=== PATIENT | male | born 1935 | race Caucasian/White ===

== ENCOUNTER → 2016-02-29 | Outpatient (CLI) | payer BC ==
[~2016-02-29] MED LIST: APIX1TAB PO; ARC10 PO; ASPI81TA28 PO; ATOR-26 PO; CETI10TA84 PO; CHOL100010 PO; DLN100 PO; DOCU100C31 PO; FAMO20TA9 PO; FSM70 PO; METO25TA56 PO; MULT-506 PO; NMN5 PO
[2016-02-29 11:03] LABS: HEMATOCRIT 45.1 % (42-52); MEAN CELL VOLUME 94.5 fL (80-100); MEAN CORPUSCULAR HEMOGLOBIN 32.9 pg (25-34); MEAN CORPUSCULAR HGB CONC 34.8 g/dl (32-36); MEAN PLATELET VOLUME 10.1 fL (7.4-10.4); PLATELET COUNT 169 K/uL (130-400); RED BLOOD COUNT 4.77 M/uL (4.7-6.1); WHITE BLOOD COUNT 6.05 K/uL (4.8-10.8)
[2016-02-29 11:20] LABS: ALT/SGPT 36 U/L (12-78); BLOOD UREA NITROGEN 25 mg/dl (7-18); BUN/CREATININE RATIO 13.1 (10-20); CALCIUM 8.9 mg/dl (8.5-10.1); CARBON DIOXIDE 26 mmol/L (21-32); CHLORIDE 108 mmol/L (98-107); CHOLESTEROL 226 mg/dl (0-200); GLUCOSE 107 mg/dl (70-99); POTASSIUM 4.7 mmol/L (3.5-5.1); SODIUM 144 mmol/L (136-145); TRIGLYCERIDES 200 mg/dl (0-150); VERY LOW DENSITY LIPOPROT CALC 40 mg/dl
[2016-02-29 11:21] LABS: ALB/GLOB RATIO 1.3 (0.9-2); ALKALINE PHOSPHATASE 96 U/L (45-117); AST/SGOT 26 U/L (15-37); CHOLESTEROL/HDL RATIO 4.3; HDL CHOLESTEROL 53 mg/dl; LDL CHOLESTEROL CALCULATED 133 mg/dl
== END | disposition home or self-care (01) ==
LOC: C.LAB 09:29
PROVIDERS: ATTEND Family Medicine
DX: I48.91 Unspecified atrial fibrillation (principal); I12.9 Hypertensive chronic kidney disease with stage 1 through stage 4 chronic kidney disease, or unspecified chronic kidney disease; N18.3 Chronic kidney disease, stage 3 (moderate); E78.5 Hyperlipidemia, unspecified; G40.909 Epilepsy, unspecified, not intractable, without status epilepticus

== ENCOUNTER → 2016-03-27 | Outpatient (CLI) | payer BC ==
[2016-03-27 14:59] LABS: URINE APPEARANCE CLEAR (CLEAR); URINE BILIRUBIN NEG (NEG); URINE COLOR YELLOW; URINE NITRITE NEG (NEG); UROBILINOGEN NEG (NEG)
[2016-03-27 15:02] LABS: MANUAL MICROSCOPIC REQUIRED? NO; REVIEW REQ? NO
[2016-03-27 15:12] LABS: BLOOD UREA NITROGEN 30 mg/dl (7-18); BUN/CREATININE RATIO 11.6 (10-20); CALCIUM 8.3 mg/dl (8.5-10.1); CARBON DIOXIDE 25 mmol/L (21-32); CHLORIDE 111 mmol/L (98-107); GLUCOSE 107 mg/dl (70-99); PHOSPHORUS 2.3 mg/dl (2.5-4.9); POTASSIUM 4.5 mmol/L (3.5-5.1); SODIUM 145 mmol/L (136-145); URINE PROTIEN/CREAT RATIO 0.4 (0-0.2); URINE TOTAL PROTEIN 67.5 mg/dl (0-11.9)
== END ==
LOC: C.LAB 12:37
PROVIDERS: ATTEND Internal Medicine Nephrology
DX: N18.3 Chronic kidney disease, stage 3 (moderate) (principal)

== ENCOUNTER → 2016-04-14 | Outpatient (CLI) | payer BC ==
[2016-04-14 12:08] LABS: HEMATOCRIT 42.9 % (42-52); MEAN CELL VOLUME 96.6 fL (80-100); MEAN CORPUSCULAR HEMOGLOBIN 32.7 pg (25-34); MEAN CORPUSCULAR HGB CONC 33.8 g/dl (32-36); MEAN PLATELET VOLUME 9.7 fL (7.4-10.4); PLATELET COUNT 203 K/uL (130-400); RED BLOOD COUNT 4.44 M/uL (4.7-6.1); WHITE BLOOD COUNT 5.71 K/uL (4.8-10.8)
[2016-04-14 12:34] LABS: ALT/SGPT 30 U/L (12-78); BLOOD UREA NITROGEN 25 mg/dl (7-18); BUN/CREATININE RATIO 12.5 (10-20); CALCIUM 8.6 mg/dl (8.5-10.1); CARBON DIOXIDE 27 mmol/L (21-32); CHLORIDE 106 mmol/L (98-107); GLUCOSE 96 mg/dl (70-99); POTASSIUM 4.5 mmol/L (3.5-5.1); SODIUM 139 mmol/L (136-145)
[2016-04-14 12:37] LABS: ALB/GLOB RATIO 1.2 (0.9-2); ALKALINE PHOSPHATASE 102 U/L (45-117); AST/SGOT 23 U/L (15-37); CHOLESTEROL 147 mg/dl (0-200); HDL CHOLESTEROL 49 mg/dl; LDL CHOLESTEROL CALCULATED 70 mg/dl; PHOSPHORUS 2.1 mg/dl (2.5-4.9); TRIGLYCERIDES 140 mg/dl (0-150); VERY LOW DENSITY LIPOPROT CALC 28 mg/dl
== END | disposition home or self-care (01) ==
LOC: C.LAB 10:54
PROVIDERS: ATTEND Family Medicine
DX: N17.9 Acute kidney failure, unspecified (principal); E78.5 Hyperlipidemia, unspecified; I48.91 Unspecified atrial fibrillation; G40.909 Epilepsy, unspecified, not intractable, without status epilepticus; N18.3 Chronic kidney disease, stage 3 (moderate); I12.9 Hypertensive chronic kidney disease with stage 1 through stage 4 chronic kidney disease, or unspecified chronic kidney disease

== ENCOUNTER 2016-09-21 04:27 | Inpatient (IN) | payer BC, OTHER ==
[~2016-09-21] VITALS: Ht 175.3 cm; Wt 73.4 kg
[2016-09-21] VITALS (9 sets, daily range): BP systolic 117–191; BP diastolic 70–85; PULSE 57–71; TEMP 36.4–37.4; O2SAT 92–98; Ht 175.3 cm; Wt 73.4 kg
[~2016-09-21 04:27] MED LIST changes: -ASPI81TA28 PO; -DOCU100C31 PO; -FAMO20TA9 PO; -METO25TA56 PO; -NMN5 PO
[2016-09-21 05:21] LABS: BASO % 0.2 %; BASO ABS # 0.02 K/uL (0-0.2); COMPLETE YES; EOS % 0.7 %; HEMATOCRIT 48.9 % (42-52); IG% 0.2 %; LYMPH % 13.6 %; MEAN CELL VOLUME 96.3 fL (80-100); MEAN CORPUSCULAR HEMOGLOBIN 31.9 pg (25-34); MEAN CORPUSCULAR HGB CONC 33.1 g/dl (32-36); MEAN PLATELET VOLUME 9.8 fL (7.4-10.4); MONO % 7.1 %; NEUT % 78.2 %; PLATELET COUNT 167 K/uL (130-400); RED BLOOD COUNT 5.08 M/uL (4.7-6.1); WHITE BLOOD COUNT 8.08 K/uL (4.8-10.8)
[2016-09-21] MEDS ORDERED: NMN5 PO (05:28)
[2016-09-21] MEDS ORDERED: NITROGLYCERIN OINT 2% 1GM PACKET EXT ONE (05:30)
[2016-09-21 05:34] LABS: PROTHROMBIN TIME (PATIENT) 10.7 SECONDS (9.0-12.0)
[2016-09-21 05:42] LABS: BUN/CREATININE RATIO 16.8 (10-20); CALCIUM 8.8 mg/dl (8.5-10.1); CREATININE 2.1 mg/dl (0.60-1.40); POTASSIUM 4.3 mmol/L (3.5-5.1)
[2016-09-21 05:49] LABS: ALB/GLOB RATIO 1.3 (0.9-2)
[2016-09-21] MEDS ORDERED: MoRPHine SULFATE 4 MG/ML 1 ML CARP\\VIAL IV STA (05:56)
[2016-09-21] MEDS ORDERED: ASPIRIN/ALUM/MAGNES/CAL CARB 325 MG TAB PO STA (05:56)
[2016-09-21] MEDS ORDERED: FENTANYL CITRATE INJ 50 MCG/1 ML 2 ML VIAL IV STA (06:08)
--- NOTE | 2016-09-21 06:20 | EMERGENCY ROOM VISIT NOTE ---
History Report prepared by Arden: Ines Diego Under the Supervision of: Dr. Cristina Morris D.O. First contact with patient: 04:48 Chief Complaint: CHEST PAIN Stated Complaint: CHEST PAIN Nursing Triage Summary: pt c/o chest pain/headache. reports it kept him up all night. states he was working outside all yesterday. states chest pain is "in the middle" with no radiation. hx of a.fib, on eliquis. reports he feels "a little" sob. pt alert and oriented x4. ambulatory independently. breathing WNL. History of Present Illness The patient is a 80 year old male who presents to the Emergency Room with complaints of constant central chest pain that began this afternoon after working on a tractor trailer. The pain is described as "aching", and is not relieved with changing position. He reports minimal relief after taking Tylenol. The patient also notes headache and shortness of breath. He also denies nausea, dizziness, edema, fevers, chills, nor changes in bowel movements or changes in medications. He has a history of Atrial fibrillation and is on a blood thinner. The patient has no history of similar symptoms. Source of History: patient Onset: a few hours ago Position: chest Quality: ache Timing: constant Associated Symptoms: + headache, + SOB, No fevers, No chills, No nausea, No numbness Note: The patient denies any edema. Review of Systems See HPI for pertinent positives & negatives. A total of 10 systems reviewed and were otherwise negative. Past Medical & Surgical Medical Problems: (1) Anticoagulated on Coumadin (2) DVT (deep venous thrombosis) (3) Kidney stone (4) Osteoporosis (5) Pneumonia Family History Heart disease Social History Smoking Status: Never Smoker Alcohol Use: none Drug Use: none Marital Status: Housing Status: lives with significant other Occupation Status: retired Current/Historical Medications Scheduled Alendronate (Fosamax *), 70 MG PO thursday Apixaban (Eliquis), 2.5 MG PO BID Atorvastatin (Lipitor), 1 TAB PO QAM Cetirizine (Zyrtec), 10 MG PO QAM Cholecalciferol (Vitamin D), 1,000 INTER.UNIT PO QAM Donepezil Hcl (Aricept *), 10 MG PO QAM Memantine (Namenda), 5 MG PO DAILY Multivitamin (Multivitamin), 1 TAB PO QAM Phenytoin Sodium (Dilantin *), 100 MG PO QAM Allergies Coded Allergies: Oxycodone (Verified Allergy, Unknown, UNKNOWN, 09/21/16) Penicillins (Verified Allergy, Unknown, UNKNOWN, 09/21/16) Physical Exam Vital Signs Date Time Temp Pulse Resp B/P (MAP) Pulse Ox O2 Delivery O2 Flow Rate FiO2 09/21/16 06:30 68 18 151/90 97 Room Air 09/21/16 06:01 96 Nasal Cannula 2.0 09/21/16 06:00 66 18 160/105 96 Nasal Cannula 2.0 09/21/16 06:00 88 Room Air 09/21/16 05:38 69 18 149/79 93 Room Air 09/21/16 05:00 76 09/21/16 04:46 93 Room Air 09/21/16 04:43 93 Room Air 09/21/16 04:43 Room Air 09/21/16 04:32 36.7 96 22 182/86 70 Room Air Physical Exam GENERAL: alert, well appearing, well nourished, no distress, non-toxic EYE EXAM: normal conjunctiva, PERRL and EOM's grossly intact OROPHARYNX: no exudate, no erythema, lips, buccal mucosa, and tongue normal and mucous membranes are moist NECK: supple, no nuchal rigidity, no adenopathy, non-tender LUNGS: Clear to auscultation. Normal chest wall mechanics HEART: no murmurs, S1 normal and S2 normal ABDOMEN: abdomen soft, non-tender, normo-active bowel sounds, no masses, no rebound or guarding. BACK: Back is symmetrical on inspection and there is no deformity, no midline tenderness, no CVA tenderness. SKIN: no rashes and no bruising UPPER EXTREMITIES: upper extremities are grossly normal. LOWER EXTREMITIES: 1+ LE bilateral edema NEURO EXAM: Normal sensorium, cranial nerves II-XII grossly intact, normal speech, no gross weakness of arms, no gross weakness of legs. Medical Decision & Procedures ER Provider Diagnostic Interpretation: One view Chest X-Ray interpreted by me: Mild cardiomegaly, no effusions, increased interstitial marking bilaterally, no wide mediastinum. Laboratory Results 09/21/16 05:03 Red Blood Count 5.08, Mean Corpuscular Volume 96.3, Mean Corpuscular Hemoglobin 31.9, Mean Corpuscular Hemoglobin Concent 33.1, Mean Platelet Volume 9.8, Neutrophils (%) (Auto) 78.2, Lymphocytes (%) (Auto) 13.6, Monocytes (%) (Auto) 7.1, Eosinophils (%) (Auto) 0.7, Basophils (%) (Auto) 0.2, Neutrophils # (Auto) 6.31, Lymphocytes # (Auto) 1.10, Monocytes # (Auto) 0.57, Eosinophils # (Auto) 0.06, Basophils # (Auto) 0.02 09/21/16 05:03 Test 09/21/16 05:03 White Blood Count 8.08 K/uL (4.8-10.8) Red Blood Count 5.08 M/uL (4.7-6.1) Hemoglobin 16.2 g/dL (14.0-18.0) Hematocrit 48.9 % (42-52) Mean Corpuscular Volume 96.3 fL (80-100) Mean Corpuscular Hemoglobin 31.9 pg (25-34) Mean Corpuscular Hemoglobin Concent 33.1 g/dl (32-36) Platelet Count 167 K/uL (130-400) Mean Platelet Volume 9.8 fL (7.4-10.4) Neutrophils (%) (Auto) 78.2 % Lymphocytes (%) (Auto) 13.6 % Monocytes (%) (Auto) 7.1 % Eosinophils (%) (Auto) 0.7 % Basophils (%) (Auto) 0.2 % Neutrophils # (Auto) 6.31 K/uL (1.4-6.5) Lymphocytes # (Auto) 1.10 K/uL (1.2-3.4) Monocytes # (Auto) 0.57 K/uL (0.11-0.59) Eosinophils # (Auto) 0.06 K/uL (0-0.5) Basophils # (Auto) 0.02 K/uL (0-0.2) RDW Standard Deviation 49.4 fL (36.4-46.3) RDW Coefficient of Variation 13.9 % (11.5-14.5) Immature Granulocyte % (Auto) 0.2 % Immature Granulocyte # (Auto) 0.02 K/uL (0.00-0.02) Prothrombin Time 10.7 SECONDS (9.0-12.0) Prothromb Time International Ratio 1.0 (0.9-1.1) Anion Gap 8.0 mmol/L (3-11) Est Creatinine Clear Calc Drug Dose 27.1 ml/min Estimated GFR () 33.0 Estimated GFR (Non- 28.5 BUN/Creatinine Ratio 16.8 (10-20) Calcium Level 8.8 mg/dl (8.5-10.1) Total Bilirubin 0.5 mg/dl (0.2-1) Aspartate Amino Transf (AST/SGOT) 38 U/L (15-37) Alanine Aminotransferase (ALT/SGPT) 34 U/L (12-78) Alkaline Phosphatase 109 U/L (45-117) Pro-B-Type Natriuretic Peptide 1426 pg/ml (0-1800) Total Protein 7.6 gm/dl (6.4-8.2) Albumin 4.3 gm/dl (3.4-5.0) Globulin 3.3 gm/dl (2.5-4.0) Albumin/Globulin Ratio 1.3 (0.9-2) Laboratory results per my review. Medications Administered Medications (Trade) Dose Ordered Sig/Korina Route Start Time Stop Time Status Last Admin Dose Admin Nitroglycerin (Nitroglycerin 2% Oint) 1 inch NOW ONCE EXT 09/21/16 05:30 09/21/16 05:31 DC 09/21/16 05:38 1 INCH Aspirin/Aluminum/ Magnesium/Ca Carb (Ascriptin Tab) 325 mg NOW STAT PO 09/21/16 05:56 09/21/16 05:57 DC 09/21/16 06:23 325 MG Fentanyl Citrate (Fentanyl Inj) 50 mcg NOW STAT IV 09/21/16 06:08 09/21/16 06:09 DC 09/21/16 06:24 50 MCG Acetaminophen (Tylenol Tab) 650 mg Q4H PRN PO 09/21/16 06:30 10/21/16 06:29 09/21/16 20:59 650 MG ECG Indication: chest pain Rate (beats per minute): 90 Rhythm: atrial fibrillation Findings: RBBB, no acute ischemic change, prolonged QT, other (Normal axis. Prolonged QRS.) ED Course 0451: The patient was evaluated in room B5. A complete history and physical exam was performed. 0530: Ordered NTG 2% Oint 1 inch EXT 0555: I reassessed the patient. His pain has improved but not resolved. 0556: Ordered Ascriptin Tab 325 mg PO, Morphine Sulfate 2 mg IV. 0608: Ordered Fentanyl Inj 50 mcg IV. 0613: Upon reevaluation, the patient is resting comfortably. I discussed the findings and the treatment plan with the patient. He expresses agreement and understanding. I spoke with Dr. Tapia of the [facility] Hospital[facility] Service. The patient will be evaluated for further management. Medical Decision Differential diagnosis: Etiologies such as cardiac ischemia, aortic dissection, pulmonary embolism, pneumonia, pneumothorax, musculoskeletal, infections, pericarditis, myocarditis , esophageal rupture, gastrointestinal, as well as others were entertained. Patient's chest pain here found to have an elevated troponin. Patient with chronic kidney disease, however stable compared to baseline, unclear if troponin influenced by abnormal creatinine. Patient however with ongoing chest pain, improved with nitroglycerin and dose of fentanyl. Discussed admission with hospitalist. Patient given aspirin as a precaution, however already anticoagulated on Eliquis given history of A. fib. They will discuss and anticoagulation with cardiology for likely non-ST elevation PR. Patient aware of all results and need for admission was agreeable with plan. Doubt dissection , AAA, PE, ammonia, effusion, GI bleed, perforation. Patient's vital signs stable, initially hypertensive, however improved with nitroglycerin and pain medication. Patient's A. fib rate controlled. Medication Reconcilliation Current Medication List: was personally reviewed by me Blood Pressure Screening Patient's blood pressure: Elevated blood pressure Blood pressure disposition: Elevated BP felt to be situational Consults Time Called: [phone] Consulting Physician: Dr. Tapia -[facility] Returned Call: [phone] I reviewed the patient's case with Dr. Tapia. [facility] will evaluate the patient for further management. Impression Primary Impression: Chest pain Additional Impressions: Elevated troponin NSTEMI (non-ST elevated myocardial infarction) Scribe Attestation The scribe's documentation has been prepared under my direction and personally reviewed by me in its entirety. I confirm that the note above accurately reflects all work, treatment, procedures, and medical decision making performed by me. Departure Information Dispostion Being Evaluated By Hospitalist Referrals Marcial Em III, CRNP (PCP) Patient Instructions My [facility] Problem Qualifiers Primary Impression: Chest pain Chest pain type: chest pain due to myocardial ischemia Ischemic chest pain type: unspecified angina pectoris type Qualified Codes: I20.9 - Angina pectoris, unspecified
[2016-09-21] MEDS ORDERED: MoRPHine SULFATE 2 MG/ML CARP IV PRN (06:30)
[2016-09-21] MEDS ORDERED: NITROGLYCERIN 0.4 MG SL PER TAB CHARGE SL PRN (06:30)
[2016-09-21] MEDS ORDERED: MAGNESIUM HYDROXIDE SUSP 30 ML UDC PO PRN (06:30)
[2016-09-21] MEDS ORDERED: ALUMINUM/MAGNESIUM/SIMETH (MAALOX MAX) 30 ML UDC PO PRN (06:30)
[2016-09-21] MEDS ORDERED: ONDANSETRON INJ 2 MG/ML 2 ML VIAL IV PRN (06:30)
[2016-09-21] MEDS ORDERED: POLYETHYLENE (MIRALAX) 17 GM PACK PO PRN (06:30)
--- NOTE | 2016-09-21 06:40 | History and Physical ---
History & Physical Date & Time of Service: Sep 21, 2016 at 06:33 Chief Complaint: Chest Pain Primary Care Physician: Marcial Em III, CRNP History of Present Illness Source: patient 80 y/o M Hx CKD 3, Factor V Laden mutation, chronic AF, seizure disorder, dementia. Pt presents with intermittent CP accompanied by SOB since the previous afternoon. There is no described radiation, N/V, diaphoresis. Initial labs reveal an elevated troponin. On review of records he has had abnormal troponins previously deemed due to renal insufficiency and demand mismatch. This was not however, previously accompanied by CP and occurred during an admission for PNM in 2014. An initial EKG shows possible depression in 2 anterior leads. CXR may be consistent with early vascular congestion. He is anticoagulated with Apixaban. Past Medical/Surgical History 1) Chronic AF 2) CKD 3 3) Factor V mutation and previous DVT 4) Seizure disorder 5) Dementia 6) HPL Family History Heart disease Social History Smoking Status: Never Smoker Drug Use: none Marital Status: Housing status: lives with family Occupational Status: retired Immunizations History of Influenza Vaccine: N/A History of Tetanus Vaccine?: Yes History of Pneumococcal: Yes History of Hepatitis B Vaccine: No Multi-Drug Resistant Organisms History of MDRO: No Allergies Coded Allergies: Oxycodone (Verified Allergy, Unknown, UNKNOWN, 09/21/16) Penicillins (Verified Allergy, Unknown, UNKNOWN, 09/21/16) Home Medications Scheduled Alendronate (Fosamax *), 70 MG PO thursday Apixaban (Eliquis), 2.5 MG PO BID Atorvastatin (Lipitor), 1 TAB PO QAM Cetirizine (Zyrtec), 10 MG PO QAM Cholecalciferol (Vitamin D), 1,000 INTER.UNIT PO QAM Donepezil Hcl (Aricept *), 10 MG PO QAM Memantine (Namenda), 5 MG PO DAILY Multivitamin (Multivitamin), 1 TAB PO QAM Phenytoin Sodium (Dilantin *), 100 MG PO QAM Review of Systems Constitutional: No fever, No chills, No sweats Eyes: No worsening of vision ENT: No hearing loss, No unusual epistaxis, No nasal symptoms Respiratory: + shortness of breath, + dyspnea at rest, No cough, No sputum, No wheezing Cardiovascular: + chest pain Abdomen: No pain, No nausea, No vomiting Musculoskeletal: No joint pain Genitourinary - Male: No hematuria, No dysuria, No urinary frequency Neurologic: + memory loss (chronic dementia), No paralysis, No weakness Psychiatric: No depression symptoms Endocrine: No fatigue Hematologic / Lymphatic: No abnormal bleeding/bruising Integumentary: No rash Allergic / Immunologic: No environmental allergies Physical Exam Vital Signs Date Time Temp Pulse Resp B/P (MAP) Pulse Ox O2 Delivery O2 Flow Rate FiO2 09/21/16 06:01 96 Nasal Cannula 2.0 09/21/16 06:00 66 18 160/105 96 Nasal Cannula 2.0 09/21/16 06:00 88 Room Air 09/21/16 05:38 69 18 149/79 93 Room Air 09/21/16 05:00 76 09/21/16 04:46 93 Room Air 09/21/16 04:43 93 Room Air 09/21/16 04:43 Room Air 09/21/16 04:32 36.7 96 22 182/86 70 Room Air General Appearance: + pertinent finding (Very pleasant elderly male - AAO x 2 - no distress) Head: normocephalic, atraumatic Eyes: normal inspection, EOMI ENT: normal ENT inspection, pharynx normal Neck: supple, no JVD Respiratory/Chest: chest non-tender, no respiratory distress, no accessory muscle use, + crackles (R base only) Cardiovascular: no JVD, no murmur, + irregularly irregular Abdomen/GI: normal bowel sounds, non tender, soft Back: normal inspection, no CVA tenderness Extremities/Musculoskelatal: normal inspection, no calf tenderness, normal capillary refill, no pedal edema 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, no motor/sensory deficits, alert, normal mood/affect, normal reflexes, oriented x 3 Skin: normal color, warm/dry, no rash Diagnostics Laboratory Results Results Past 24 Hours Test 09/21/16 05:03 Range/Units White Blood Count 8.08 4.8-10.8 K/uL Red Blood Count 5.08 4.7-6.1 M/uL Hemoglobin 16.2 14.0-18.0 g/dL Hematocrit 48.9 42-52 % Mean Corpuscular Volume 96.3 80-100 fL Mean Corpuscular Hemoglobin 31.9 25-34 pg Mean Corpuscular Hemoglobin Concent 33.1 32-36 g/dl Platelet Count 167 130-400 K/uL Mean Platelet Volume 9.8 7.4-10.4 fL Neutrophils (%) (Auto) 78.2 % Lymphocytes (%) (Auto) 13.6 % Monocytes (%) (Auto) 7.1 % Eosinophils (%) (Auto) 0.7 % Basophils (%) (Auto) 0.2 % Neutrophils # (Auto) 6.31 1.4-6.5 K/uL Lymphocytes # (Auto) 1.10 1.2-3.4 K/uL Monocytes # (Auto) 0.57 0.11-0.59 K/uL Eosinophils # (Auto) 0.06 0-0.5 K/uL Basophils # (Auto) 0.02 0-0.2 K/uL RDW Standard Deviation 49.4 36.4-46.3 fL RDW Coefficient of Variation 13.9 11.5-14.5 % Immature Granulocyte % (Auto) 0.2 % Immature Granulocyte # (Auto) 0.02 0.00-0.02 K/uL Prothrombin Time 10.7 9.0-12.0 SECONDS Prothromb Time International Ratio 1.0 0.9-1.1 Sodium Level 141 136-145 mmol/L Potassium Level 4.3 3.5-5.1 mmol/L Chloride Level 111 98-107 mmol/L Carbon Dioxide Level 22 21-32 mmol/L Anion Gap 8.0 3-11 mmol/L Blood Urea Nitrogen 35 7-18 mg/dl Creatinine 2.10 0.60-1.40 mg/dl Est Creatinine Clear Calc Drug Dose 27.1 ml/min Estimated GFR () 33.0 Estimated GFR (Non- 28.5 BUN/Creatinine Ratio 16.8 10-20 Random Glucose 147 70-99 mg/dl Calcium Level 8.8 8.5-10.1 mg/dl Total Bilirubin 0.5 0.2-1 mg/dl Aspartate Amino Transf (AST/SGOT) 38 15-37 U/L Alanine Aminotransferase (ALT/SGPT) 34 12-78 U/L Alkaline Phosphatase 109 45-117 U/L Troponin I 1.710 0-0.045 ng/ml Pro-B-Type Natriuretic Peptide 1426 0-1800 pg/ml Total Protein 7.6 6.4-8.2 gm/dl Albumin 4.3 3.4-5.0 gm/dl Globulin 3.3 2.5-4.0 gm/dl Albumin/Globulin Ratio 1.3 0.9-2 Diagnostic Radiology CXR: may be consistent with mild failure EKG AF - rate 80-90 , ST changes V2,3 Impression Assessment and Plan 80 y/o M Hx CKD 3, Factor V Laden mutation, chronic AF, seizure disorder, dementia. Pt presents with intermittent CP accompanied by SOB since the previous afternoon. There is no described radiation, N/V, diaphoresis. Initial labs reveal an elevated troponin. On review of records he has had abnormal troponins previously deemed due to renal insufficiency and demand mismatch. This was not however, previously accompanied by CP and occurred during an admission for PNM in 2014. An initial EKG shows possible depression in 2 anterior leads. CXR may be consistent with early vascular congestion. He is anticoagulated with Apixaban. 1) CP - elevated trop - pt placed on NTG - morphine PRN. Will be anticoagulated with Heparin and we will hold Apixaban. Provided with ASA. He is on high-intensity Statin therapy. Cardiology notified at time of admission. Serial enzymes and an echo ordered. He may not be a good candidate for cath based on his renal function. 2) CKD - stable - creat is at baseline - would provide IVF if he needs a cath although he may be developing mild failure based on exam and CXR. 3) AF - rate controlled - anticoagulated 4) May have mild failure on CXR -0 echo pending - hold IVF pending cardio eval 5) Seizure disorder - cont Dilantin Full code - Full dose Heparin Total time for this admit including review of labs, meds, EKG, imaging - discussion with pt, spouse, ER attending 38 min Level of Care Telemetry Resuscitation Status FULL RESUSCITATION VTE Prophylaxis VTE Risk Assessment Done? Y/N: Yes Risk Level: High Given or contraindicated: Other Anticoagulation
[2016-09-21] MEDS ORDERED: HEPARIN 25000 UNIT/500 ML D5W ONE (07:11)
[2016-09-21] MEDS: DONEPEZIL HCL 10 MG TAB PO SCH (08:40)
[2016-09-21] MEDS: PHENYTOIN SODIUM ER 100 MG CAP PO SCH (08:40)
[2016-09-21] MEDS: ATORVASTATIN 40 MG TAB PO SCH (08:40)
[2016-09-21] MEDS: MEMANTINE 5 MG TAB PO SCH (08:41)
--- NOTE | 2016-09-21 08:51 | DIAGNOSTIC IMAGING REPORT ---
CHEST ONE VIEW PORTABLE HISTORY: Atypical chest pain COMPARISON: Chest 10/12/2014. FINDINGS: The heart remains mildly enlarged. No new focal lung consolidations to suggest pneumonia. Right basilar linear densities, unchanged. This favors scarring. Mild perihilar interstitial thickening. This may represent mild congestive change. Old, healed upper left rib fractures. No pneumothorax. No definite pleural effusions. IMPRESSION: Stable cardiomegaly. Mild perihilar interstitial thickening. This may represent developing congestive change. Electronically signed by: Nadeem Barahona M.D. 09/21/2016 8:49 AM Dictated Date/Time: 09/21/2016 8:48 AM
[2016-09-21] MEDS ORDERED: PERFLUTREN LIPID MICROSPHERE (DEFINITY) IV ONE (09:57)
[2016-09-21] MEDS: NITROGLYCERIN OINT 2% 1GM PACKET EXT SCH ×3 (09:58→20:58)
[2016-09-21] MEDS ORDERED: METOPROLOL TARTRATE 50 MG TAB PO STA (10:29)
--- NOTE | 2016-09-21 10:29 | Cardiology Consultation ---
Cardiology Consultation Date of Consultation: Sep 21, 2016. Requesting Physician: Dr. Tapia Reason for Consultation: Chest discomfort, elevated troponin Pt evaluation today including: conversation w/ patient, physical exam, lab review, review of studies, review of inpatient medication list History of Present Illness This is a very pleasant 80-year-old gentleman who has a history of factor V Leiden associate with a DVT, permanent atrial fibrillation, right bundle branch block and a seizure disorder. He is reported to have dementia although he is quite conversational. He was admitted to the emergency room with chest discomfort and an elevated troponin. He reports having chest discomfort starting early afternoon on 09/20/2016, this was a substernal chest discomfort without radiation. At the time he was helping his son changed tires and working on a tractor trailer. He believed he overexerted himself, he went to bed last evening and the discomfort continued through the night. This morning his insisted that he come to the emergency room where he was still having chest discomfort and uses her to have a positive troponin. He was started on intravenous heparin (he is on Eliquis for his atrial fibrillation) and given nitroglycerin. At the time of my evaluation he is pain-free. He tells me he has never had this chest discomfort before, he believes it resolved some time in the emergency room. He denies shortness of breath although he tells that he did have some shortness of breath when he had the chest discomfort. Ordinarily he is fairly active and does not have difficulty with activities. He denies palpitations. Past Medical/Surgical History (1) Pneumonia (2) DVT (deep venous thrombosis) (3) Kidney stone (4) Osteoporosis Family History Heart disease Social History Smoking Status: Never Smoker History of Alcohol Use: No Review of Systems Constitutional: No fever, No weight loss, No weakness Respiratory: No cough, No wheezing, No shortness of breath, No dyspnea on exertion Cardiac: + see HPI, + chest pain, No orthopnea, No PND, No edema, No palpitations Abdomen: No pain, No nausea, No vomiting, No diarrhea, No GI bleeding Male : No urinary frequency, No nocturia more than once/night, No slowing stream, No sexual dysfunction Neurologic: No paralysis, No weakness, No numbness/tingling, No balance problems Heme: No abnormal bleeding/bruising, No clotting problems Endo: No fatigue Skin: No problem reported All Other Systems: Reviewed and Negative Allergies Coded Allergies: Oxycodone (Verified Allergy, Unknown, UNKNOWN, 09/21/16) Penicillins (Verified Allergy, Unknown, UNKNOWN, 09/21/16) Medications Current Inpatient Medications Medications (Trade) Dose Ordered Sig/Korina Route Start Time Stop Time Status Last Admin Dose Admin Acetaminophen (Tylenol Tab) 650 mg Q4H PRN PO 09/21/16 06:30 10/21/16 06:29 Al Hydrox/Mg Hydrox/Simethicone (Maalox Max Susp) 15 ml Q4H PRN PO 09/21/16 06:30 10/21/16 06:29 Magnesium Hydroxide (Milk Of Magnesia Susp) 30 ml Q12H PRN PO 09/21/16 06:30 10/21/16 06:29 Ondansetron HCl (Zofran Inj) 4 mg Q6H PRN IV 09/21/16 06:30 10/21/16 06:29 Nitroglycerin (Nitrostat Tab) 0.4 mg UD PRN SL 09/21/16 06:30 10/21/16 06:29 Nitroglycerin (Nitroglycerin 2% Oint) 1 inch Q6H EXT 09/21/16 10:00 10/21/16 09:59 09/21/16 09:58 1 INCH Morphine Sulfate (MoRPHine SULFATE INJ) 2 mg Q30M PRN IV 09/21/16 06:30 10/05/16 06:29 Polyethylene (Miralax Powder Packet) 17 gm DAILY PRN PO 09/21/16 06:30 10/21/16 06:29 Atorvastatin Calcium (Lipitor Tab) 80 mg QAM PO 09/21/16 09:00 10/21/16 08:59 09/21/16 08:40 80 MG Donepezil HCl (Aricept Tab) 10 mg QAM PO 09/21/16 09:00 10/21/16 08:59 09/21/16 08:40 10 MG Memantine (Namenda Tab) 5 mg DAILY PO 09/21/16 09:00 10/21/16 08:59 09/21/16 08:41 5 MG Phenytoin Sodium (Dilantin Er Cap) 100 mg QAM PO 09/21/16 09:00 10/21/16 08:59 09/21/16 08:40 100 MG Heparin Sodium/ Dextrose 500 ml @ 26 mls/hr [id number] PRN IV 09/21/16 07:30 10/21/16 07:29 Aspirin (Ecotrin Tab) 81 mg QAM PO 09/22/16 09:00 10/22/16 08:59 Physical Exam Vital Signs Past 12 Hours Date Time Temp Pulse Resp B/P (MAP) Pulse Ox O2 Delivery O2 Flow Rate FiO2 09/21/16 09:31 36.4 65 22 191/81 (117) 98 Room Air 164/78 (106) 09/21/16 06:55 97 Room Air 09/21/16 06:30 68 18 151/90 97 Room Air 09/21/16 06:01 96 Nasal Cannula 2.0 09/21/16 06:00 66 18 160/105 96 Nasal Cannula 2.0 09/21/16 06:00 88 Room Air 09/21/16 05:38 69 18 149/79 93 Room Air 09/21/16 05:00 76 09/21/16 04:46 93 Room Air 09/21/16 04:43 93 Room Air 09/21/16 04:43 Room Air 09/21/16 04:32 36.7 96 22 182/86 70 Room Air Constitutional: General Apperance: heathly-appearing Level of Distress: NAD Psychiatric: Mental Status: active & alert Head: normocephalic Eyes: EOM: EOMI ENMT: normal ENT inspection, hearing grossly normal Neck: supple, no masses Lungs: Respiratory effort: no dyspnea, good air movement Auscultation: no wheezing, rales/crackles on the left, rales/crackles on the right Cardiovascular: Heart Auscultation: no murmurs, no rubs, no gallops, irregular rate rhythm Peripheral Pulses: Bruits: none appreciated Abdomen: Bowel Sounds: normal Inspection & Palpation: soft, no tenderness, guarding & rebound, no masses Musculoskeletal: normal strength (5/5 throughout) Extremities: no edema Neurologic: Cranial Nerves: grossly intact Sensation: grossly intact Data Laboratory Results: Last 24 Hours Test 09/21/16 05:03 09/21/16 08:48 White Blood Count 8.08 K/uL Red Blood Count 5.08 M/uL Hemoglobin 16.2 g/dL Hematocrit 48.9 % Mean Corpuscular Volume 96.3 fL Mean Corpuscular Hemoglobin 31.9 pg Mean Corpuscular Hemoglobin Concent 33.1 g/dl Platelet Count 167 K/uL Mean Platelet Volume 9.8 fL Neutrophils (%) (Auto) 78.2 % Lymphocytes (%) (Auto) 13.6 % Monocytes (%) (Auto) 7.1 % Eosinophils (%) (Auto) 0.7 % Basophils (%) (Auto) 0.2 % Neutrophils # (Auto) 6.31 K/uL Lymphocytes # (Auto) 1.10 K/uL Monocytes # (Auto) 0.57 K/uL Eosinophils # (Auto) 0.06 K/uL Basophils # (Auto) 0.02 K/uL RDW Standard Deviation 49.4 fL RDW Coefficient of Variation 13.9 % Immature Granulocyte % (Auto) 0.2 % Immature Granulocyte # (Auto) 0.02 K/uL Prothrombin Time 10.7 SECONDS Prothromb Time International Ratio 1.0 Sodium Level 141 mmol/L Potassium Level 4.3 mmol/L Chloride Level 111 mmol/L Carbon Dioxide Level 22 mmol/L Anion Gap 8.0 mmol/L Blood Urea Nitrogen 35 mg/dl Creatinine 2.10 mg/dl Est Creatinine Clear Calc Drug Dose 27.1 ml/min Estimated GFR () 33.0 Estimated GFR (Non- 28.5 BUN/Creatinine Ratio 16.8 Random Glucose 147 mg/dl Calcium Level 8.8 mg/dl Total Bilirubin 0.5 mg/dl Aspartate Amino Transf (AST/SGOT) 38 U/L Alanine Aminotransferase (ALT/SGPT) 34 U/L Alkaline Phosphatase 109 U/L Troponin I 1.710 ng/ml 8.000 ng/ml Pro-B-Type Natriuretic Peptide 1426 pg/ml Total Protein 7.6 gm/dl Albumin 4.3 gm/dl Globulin 3.3 gm/dl Albumin/Globulin Ratio 1.3 Imaging: Chest x-ray shows possible mild early congestive heart failure Echocardiography reviewed at the bedside demonstrates overall reasonable left ventricular function, there may be some wall motion abnormalities. No other significant abnormality. EKG: An electrocardiogram on arrival and done at the time my evaluation both show atrial fibrillation with a controlled heart rate, right bundle branch block , anterolateral ST-T abnormalities with ST depression. No ST elevation to suggest ST segment elevation myocardial infarction. Telemetry reviewed: Atrial fibrillation with a controlled heart rate Assessment & Plan #1. Chest discomfort: His chest discomfort was certainly compatible with angina , lasted from early afternoon on 09/20/2016 through the morning of 09/21/2016, however he is pain-free at 10 AM today. This is associated with enzyme abnormalities. This most likely represents a non-ST segment elevation myocardial infarction. #2. Non-ST segment elevation myocardial infarction: His symptoms are compatible with myocardial infarction, however does not ST segment elevation. Although he did have discomfort associated strenuous activity yesterday it did not resolve in tell initial treatment with intravenous heparin (with discontinuation of his Eliquis) and topical nitroglycerin. This is not consistent with simple angina, he probably has significant coronary artery disease. He will most likely need catheterization, however since he is pain-free and is not having an ST segment elevation myocardial infarction and his discomfort was close to 24 hours ago I don't think we should take him urgently to the laboratory. If he has recurrence or signs of an ST segment elevation myocardial infarction we can certainly do that. I will make him nothing by mouth for possible catheterization on 2016. Meanwhile I would continue topical nitroglycerin and heparin, consider a change to a nitroglycerin infusion if chest pain recurs or a IIb IIIa agent. #3. Acute systolic Congestive heart failure: I believe he is in mild congestive heart failure, that may be secondary to his myocardial infarction he does not seem to have a history of it and does not have peripheral edema. I think gentle diuresis would be in order, however he does have renal insufficiency. He does have significant hypertension as well. #4. Hypertension: His blood pressure is significantly elevated, he is not on antihypertensives. I think we need to add a beta emani to his regimen and I will do so. Thank you for allowing me to participate in his care.
[2016-09-21 15:06] LABS: PARTIAL THROMBOPLASTIN RATIO 2.3
[2016-09-21] MEDS: METOPROLOL TARTRATE 50 MG TAB PO SCH (20:55)
[2016-09-21] MEDS: ACETAMINOPHEN 325 MG TAB PO PRN (20:59)
[2016-09-22] VITALS (7 sets, daily range): BP systolic 115–128; BP diastolic 62–76; PULSE 55–89; TEMP 36.6–37.7; O2SAT 94–97
--- NOTE | 2016-09-22 | Progress Note ---
Progress Note Date of Service Sep 21, 2016. Progress Note Pt admitted this AM. I reviewed the chart and saw and examined the patient; I discussed the case with Cardiology. Pt remains CP-free on nitropaste, heparin gtt. Metoprolol added by Cardiology. Troponin continues to rise. ECHO with WMAs but preserved EF. Vitals reviewed NAD, alert and awake irreg irreg, no mgr Lungs with mild bibasilar crackles, otherwise clear Abd soft NT ND +BS no bruits and no pulsatile mass Ext no edema 80 yo male with NSTEMI, chronic A-fib on AC with Eliquis. -continue heparin gtt, daily ASA, nitropaste -added metoprolol -continue home high intensity statin -hold home Eliquis while on heparin -NPO after midnight for cath on Thursday -continue to trend troponin -follow renal function for CKD -cannot hydrate with IVFs for cath as is already showing some signs of acute CHF -no diuretics at this time as not hypoxic, no symptoms of CHF, and elevated Pot Operator
[2016-09-22] MEDS: HEPARIN 25,000 UNIT/500ML D5W 500 ML IV PRN (03:50)
[2016-09-22] MEDS: NITROGLYCERIN OINT 2% 1GM PACKET EXT SCH ×4 (03:53→22:16)
[2016-09-22 06:12] LABS: HEMATOCRIT 39.9 % (42-52); MEAN CELL VOLUME 95.5 fL (80-100); MEAN CORPUSCULAR HEMOGLOBIN 33.7 pg (25-34); MEAN CORPUSCULAR HGB CONC 35.3 g/dl (32-36); PLATELET COUNT 139 K/uL (130-400); RED BLOOD COUNT 4.18 M/uL (4.7-6.1); WHITE BLOOD COUNT 10.25 K/uL (4.8-10.8)
[2016-09-22 06:37] LABS: BUN/CREATININE RATIO 14.2 (10-20); CALCIUM 8.2 mg/dl (8.5-10.1); MAGNESIUM 2.1 mg/dl (1.8-2.4); POTASSIUM 4.3 mmol/L (3.5-5.1)
[2016-09-22 06:41] LABS: PARTIAL THROMBOPLASTIN RATIO 3.3
[2016-09-22] MEDS: ATORVASTATIN 40 MG TAB PO SCH (08:31)
[2016-09-22] MEDS: ASPIRIN 81 MG ECTAB PO SCH (08:31)
[2016-09-22] MEDS: DONEPEZIL HCL 10 MG TAB PO SCH (08:31)
[2016-09-22] MEDS: METOPROLOL TARTRATE 50 MG TAB PO SCH ×2 (08:32→20:10)
[2016-09-22] MEDS: MEMANTINE 5 MG TAB PO SCH (08:32)
[2016-09-22] MEDS: PHENYTOIN SODIUM ER 100 MG CAP PO SCH (08:32)
--- NOTE | 2016-09-22 10:22 | PROGRESS NOTE ---
DATE: 09/22/2016 HISTORY OF PRESENT ILLNESS: The patient was seen by me this morning in the telemetry unit room. He denies any chest pain since admission to the telemetry unit. He states that his chest tightness in the early hours of September 21 lasted approximately 4-6 hours. He described to me a chest tightness that did not radiate. He denies to me that he had any associated symptoms with it. He denies any orthopnea or PND. No dyspnea at rest or walking about his room. No palpitations, lightheadedness, syncope, or peripheral edema. No leg pain. On a 10-point review of systems today, he answers no to all questions. The patient states that on September 20, he had been doing strenuous exertion. He felt markedly fatigued after this. The chest tightness started after he had gone to bed that night. CURRENT MEDICATIONS: Aspirin 81 mg daily, metoprolol tartrate 50 mg b.i.d., nitroglycerin ointment 1 inch q. 6 hours, atorvastatin 80 mg daily, Aricept 10 mg daily, Namenda 5 mg daily, phenytoin 1 mg daily, intravenous heparin by weight-based protocol, and several p.r.n. medications. ALLERGIES AND ADVERSE DRUG REACTIONS: OXYCODONE, PENICILLINS. PHYSICAL EXAMINATION: GENERAL: The patient is sitting in his bedside. No distress. Current monitor reveals atrial fibrillation. Ventricular rate is in the 60s-70s. VITAL SIGNS: This morning, his oral temperature is 37.1, pulse 74, blood pressure 126/74, pulse oximetry on room air 94%. NECK: No jugular venous distention. LUNGS: Normal respiratory effort. Clear. No rales or wheezes. HEART: Irregularly irregular. No S3. No murmur or rub heard. ABDOMEN: Soft. Nontender. No palpable masses or organomegaly. No bruits. Normal bowel sounds. EXTREMITIES: No pretibial edema. No calf tenderness. PULSES: Distal pulses palpable in all extremities. NEUROLOGIC: Awake and alert. He can move all extremities well. DATA: No electrocardiogram performed as yet today. Electrocardiogram performed yesterday revealed atrial fibrillation at a rate of 88 beats per minute. Right bundle-branch block. Diffuse nonspecific ST and T wave abnormalities. Troponin I this morning was 31.900. Magnesium 2.1. Random glucose 145. Sodium 139, potassium 4.3, chloride 108, carbon dioxide 25, BUN 28, creatinine 2.00. PTT this morning was 85.4. CBC this morning was WBC 10.25, hemoglobin 14.1, hematocrit 39.9, platelet count 139. Echocardiogram performed yesterday reveals normal overall LV systolic function. [id number] tricuspid regurgitation. Anteroseptal and posterolateral hypokinesis. Distal septal hypokinesis. ASSESSMENT: 1. Non-ST elevation myocardial infarction. No anginal type pain since admission. 2. Permanent atrial fibrillation, by history. Atrial fibrillation on current monitor. His atrial fibrillation was asymptomatic. 3. No evidence of congestive heart failure on exam today. Room air oxygen saturation 94%. 4. Controlled ventricular rate with atrial fibrillation. Pulse rate is 74. Monitor reveals atrial fibrillation with ventricular rates in the 60s-70s. 5. Dyslipidemia. He is on a maximum atorvastatin dose. 6. History of factor V Leiden. 7. History of deep venous thrombosis. Chronic anticoagulation therapy at the time of admission. No bleeding complaints. 8. ____ history of hypertension. Blood pressure today good at 126/74. 9. Chronic kidney disease. Elevated creatinine. His creatinine level today is the same as it was in March of this year. 9. History of dementia. 10. Elevated random glucose. He denies history of diabetes mellitus. Hemoglobin A1c a few years ago was mildly elevated. RECOMMENDATIONS AND PLAN: 1. The indications for cardiac catheterization were extensively discussed with the patient by me. The risk, benefits, and alternatives were discussed with him. The patient is by himself today. No family members are present. The patient states that he would like to talk to his about the catheterization procedure. At this time, he is not willing to consent to the procedure. Thus, we will stop his n.p.o. status. The patient can eat breakfast today. Additionally, if he does agree to undergo cardiac catheterization, would like him to receive intravenous fluid hydration prior to the procedure. This is in light of his chronic kidney disease. He is at increased risk for contrast-induced nephropathy. 2. Continue intravenous heparin at this time. 3. Continue aspirin. 4. Continue beta-emani. 5. Check hemoglobin A1c. 6. Electrocardiogram today. ADDENDUM: At this time, because of the inclement weather, there is no helicopter transport available from [facility]. Thus, any elective percutaneous coronary intervention could not be performed. These could not be performed at [facility] unless there is available helicopter transport in the event of an emergency. Even if the patient consents to undergoing a procedure today, would hold off on performing it until emergency helicopter transport is available. Vital signs this morning revealed oral temperature 37.1, pulse 74, blood pressure 126/74, pulse oximetry 94%.
[2016-09-22 10:40] LABS: ESTIMATED AVERAGE GLUCOSE 123 mg/dl; HA1C FLAG Normal (Normal)
--- NOTE | 2016-09-22 12:01 | ECHOCARDIOGRAM REPORT ---
*NOTICE TO RECEIVING DEMOCRAT AGENCY This information is strictly Confidential and protected under [place] law. [place] law prohibits you from making any further disclosure of this information unless further disclosure is expressly permitted by the written consent of the person to whom it pertains or is authorized by law. A general authorization for the release of medical or other information is not sufficient for this purpose. Hospital accepts no responsibility if the information is made available to any other person, INCLUDING THE PATIENT. Interpretation Summary * Name: SHARON CEDEÑO Study Date: 09/21/2016 09:43 AM BP: 151/90 mmHg * Patient Location: C.2T\S\S243\S\1 HR: 88 * : 1935 (M/d/yyyy) Gender: Male Height: 69 in * Age: 80 yrs Ethnicity: CA Weight: 171 lb * Ordering Physician: Yordan Tapia * Referring Physician: Self, Referred * Performed By: Layne Bennett RCS * * Reason For Study: Chest pain * BSA: 1.9 m2 * -- Conclusions -- * Left ventricular systolic function is normal. * There is mild mitral annular calcification. * Right ventricular systolic pressure is elevated at 30-40mmHg. Procedure Details * A contrast injection of Definity was performed to improve assessment of LV function. * Contrast was injected into an intravenous site in the left arm. * One vial of Definity ultrasound contrast was diluted in normal saline to a total volume of 10 ml. A total of '4' ml of solution was administered during imaging. * Lot # [id number] of Definity utilized for procedure. * Expiration date . Left Ventricle * The left ventricle is normal in size. * There is normal left ventricular wall thickness. * Ejection Fraction = 60-65%. * Left ventricular systolic function is normal. Right Ventricle * The right ventricle is normal size. Atria * The left atrial size is normal. * Right atrial size is normal. Mitral Valve * There is mild mitral annular calcification. * There is no mitral valve stenosis. * Significant mitral regurgitation is absent. Tricuspid Valve * The tricuspid valve is not well visualized. * There is mild tricuspid regurgitation. * Right ventricular systolic pressure is elevated at 30-40mmHg. Aortic Valve * The aortic valve is not well visualized. * Aortic stenosis is absent. * No aortic regurgitation is present. Pulmonic Valve * The pulmonary valve is inadequately visualized, but the Doppler data is adequate for interpretation. * There is no pulmonic valvular stenosis. * There is no significant pulmonary regurgitation. Great Vessels * The aortic root is normal size. Pericardium/Pleural * There is no pericardial effusion. MMode 2D Measurements and Calculations IVSd 0.87 cm LVIDd 4.9 cm LVIDs 3.0 cm LVPWd 1.1 cm IVS/LVPW 0.76 FS 39.3 % EDV(Teich) 114.9 ml ESV(Teich) 35.0 ml EF(Teich) 69.5 % EDV(cubed) 120.5 ml ESV(cubed) 27.0 ml EF(cubed) 77.6 % LV mass(C)d 179.4 grams LV mass(C)dI 92.8 grams/m\S\2 SV(Teich) 79.9 ml SI(Teich) 41.3 ml/m\S\2 SV(cubed) 93.5 ml SI(cubed) 48.4 ml/m\S\2 Ao root diam 2.7 cm Ao root area 5.6 cm\S\2 LA dimension 3.6 cm LA/Ao 1.4 LVAd ap4 27.0 cm\S\2 LVLd ap4 8.3 cm EDV(MOD-sp4) 72.6 ml EDV(sp4-el) 74.6 ml LVAs ap4 15.2 cm\S\2 LVLs ap4 6.7 cm ESV(MOD-sp4) 30.0 ml ESV(sp4-el) 29.4 ml EF(MOD-sp4) 58.7 % EF(sp4-el) 60.6 % LVAd ap2 31.1 cm\S\2 LVLd ap2 9.5 cm EDV(MOD-sp2) 83.0 ml EDV(sp2-el) 86.6 ml LVAs ap2 15.1 cm\S\2 LVLs ap2 7.8 cm ESV(MOD-sp2) 24.2 ml ESV(sp2-el) 25.0 ml EF(MOD-sp2) 70.9 % EF(sp2-el) 71.1 % LVLd %diff 12.7 % EDV(MOD-bp) 83.1 ml LVLs %diff 14.3 % ESV(MOD-bp) 29.0 ml EF(MOD-bp) 65.1 % SV(MOD-sp4) 42.6 ml SI(MOD-sp4) 22.0 ml/m\S\2 SV(MOD-sp2) 58.9 ml SI(MOD-sp2) 30.5 ml/m\S\2 SV(MOD-bp) 54.1 ml SI(MOD-bp) 28.0 ml/m\S\2 SV(sp4-el) 45.2 ml SI(sp4-el) 23.4 ml/m\S\2 SV(sp2-el) 61.5 ml SI(sp2-el) 31.8 ml/m\S\2 Doppler Measurements and Calculations Ao V2 max 87.3 cm/sec Ao max PG 3.0 mmHg Ao max PG (full) 0.54 mmHg LV V1 max PG 2.5 mmHg LV V1 max 79.2 cm/sec TR max derek 254.2 cm/sec
[2016-09-22 13:48] LABS: PARTIAL THROMBOPLASTIN RATIO 2.8
--- NOTE | 2016-09-22 14:12 | Medical Student: [facility] ---
Med Student History & Physical Date & Time of Service: Sep 22, 2016 at 13:53 Chief Complaint: Chest Pain Primary Care Physician: Marcial Em III, CRNP History of Present Illness Source: patient, spouse Davian is an 80 yo male with a history of Afib, CKD stage 3, and Factor V Leiden mutation who presented to the ED on 09/21 following a day of chest pain and shortness of breath on 09/20. 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 He has not had an [place] in the past, to his knowledge. He denies having had n/v/d, palpitations, radiation of pain, and diaphoresis. He rates the pain as having been 5/10. He took tylenol for pain, but it didn't help. He did not take aspirin though, because he thought he shouldn't take it while already on anticoagulation medications. Past Medical/Surgical History Medical Problems: (1) Chest pain Status: Acute (2) Elevated troponin Status: Acute (3) NSTEMI (non-ST elevated myocardial infarction) Status: Acute Family History Heart disease Social History Smoking Status: Never Smoker Alcohol Use: none Drug Use: none Marital Status: Housing status: lives with family Occupational Status: retired Immunizations History of Influenza Vaccine: N/A History of Tetanus Vaccine?: Yes History of Pneumococcal: Yes History of Hepatitis B Vaccine: No Allergies Coded Allergies: Oxycodone (Verified Allergy, Unknown, UNKNOWN, 09/21/16) Penicillins (Verified Allergy, Unknown, UNKNOWN, 09/21/16) Medications Alendronate (Fosamax *), 70 MG PO thursday Apixaban (Eliquis), 2.5 MG PO BID Atorvastatin (Lipitor), 1 TAB PO QAM Cetirizine (Zyrtec), 10 MG PO QAM Cholecalciferol (Vitamin D), 1,000 INTER.UNIT PO QAM Donepezil Hcl (Aricept *), 10 MG PO QAM Memantine (Namenda), 5 MG PO DAILY Multivitamin (Multivitamin), 1 TAB PO QAM Phenytoin Sodium (Dilantin *), 100 MG PO QAM Review of Systems Constitutional: No fever, No chills, No sweats, No weight loss, No weakness, No fatigue, No problem reported Eyes: No worsening of vision, No eye pain, No redness, No discharge, No diplopia, No problem reported ENT: No hearing loss, No unusual epistaxis, No nasal symptoms, No sore throat, No tinnitus, No trouble swallowing, No problem reported Respiratory: + shortness of breath, + dyspnea on exertion, + dyspnea at rest, No cough, No sputum, No wheezing, No hemoptysis Cardiovascular: + chest pain, No orthopnea, No edema, No claudication, No palpitations Abdomen: No pain, No nausea, No vomiting, No diarrhea, No constipation, No GI bleeding, No problem reported Musculoskeletal: No swelling, No calf pain, No problem reported Genitourinary - Male: No hematuria, No dysuria, No urinary frequency, No urinary urgency, No urinary hesitancy, No urinary retention, No urinary incontinence, No problem reported Neurologic: No paralysis, No weakness, No numbness/tingling, No vertigo, No balance problems, No problem reported Psychiatric: No depression symptoms, No anxiety, No insomnia, No problem reported Endocrine: No excessive thirst, No excessive urination, No problem reported Hematologic / Lymphatic: + clotting problems (Factor V leiden history), No abnormal bleeding/bruising Integumentary: No rash, No itch, No color change, No bleeding Physical Exam Vital Signs (24 Hours) Date Time Temp Pulse Resp B/P (MAP) Pulse Ox O2 Delivery O2 Flow Rate FiO2 09/22/16 12:00 Room Air 09/22/16 11:43 36.6 55 20 123/76 (92) 95 Room Air 09/22/16 08:04 37.1 74 18 126/74 (91) 94 Room Air 09/22/16 08:00 Room Air 09/22/16 04:00 36.7 60 18 121/72 (88) 97 09/22/16 04:00 Room Air 09/21/16 23:59 Room Air 09/21/16 23:52 37.0 57 18 128/70 (89) 96 Room Air 09/21/16 20:00 Room Air 09/21/16 19:26 37.4 70 20 117/85 (96) 94 Room Air 09/21/16 16:00 96 Room Air 09/21/16 15:11 37.3 59 20 142/77 (98) 95 Room Air General Appearance: WD/WN, no apparent distress Head: normocephalic, atraumatic Eyes: sclerae normal ENT: hearing grossly normal Neck: supple, no JVD, no carotid bruits, trachea midline Respiratory/Chest: chest non-tender, lungs clear, normal breath sounds, no respiratory distress, no accessory muscle use Cardiovascular: no edema, no gallop, no JVD, no murmur, normal peripheral pulses, + abnormal rhythm (Afib) Abdomen/GI: normal bowel sounds, non tender, soft, no organomegaly, no pulsatile mass Back: no CVA tenderness Extremities/Musculoskelatal: normal inspection, no calf tenderness, normal capillary refill, no pedal edema, non-tender Neurologic/Psych: alert, normal mood/affect, oriented x 3 Skin: normal color, warm/dry, no rash Diagnostics Laboratory Results Results Past 24 Hours Test 09/21/16 14:39 09/22/16 05:59 09/22/16 13:06 Range/Units Troponin I 21.100 31.900 0-0.045 ng/ml White Blood Count 10.25 4.8-10.8 K/uL Red Blood Count 4.18 4.7-6.1 M/uL Hemoglobin 14.1 14.0-18.0 g/dL Hematocrit 39.9 42-52 % Mean Corpuscular Volume 95.5 80-100 fL Mean Corpuscular Hemoglobin 33.7 25-34 pg Mean Corpuscular Hemoglobin Concent 35.3 32-36 g/dl RDW Standard Deviation 48.7 36.4-46.3 fL RDW Coefficient of Variation 14.0 11.5-14.5 % Platelet Count 139 130-400 K/uL Mean Platelet Volume 10.0 7.4-10.4 fL Activated Partial Thromboplast Time 85.4 21.0-31.0 SECONDS Partial Thromboplastin Ratio 3.3 Sodium Level 139 136-145 mmol/L Potassium Level 4.3 3.5-5.1 mmol/L Chloride Level 108 98-107 mmol/L Carbon Dioxide Level 25 21-32 mmol/L Anion Gap 6.0 3-11 mmol/L Blood Urea Nitrogen 28 7-18 mg/dl Creatinine 2.00 0.60-1.40 mg/dl Est Creatinine Clear Calc Drug Dose 28.5 ml/min Estimated GFR () 35.0 Estimated GFR (Non- 30.2 BUN/Creatinine Ratio 14.2 10-20 Random Glucose 145 70-99 mg/dl Estimated Average Glucose 123 mg/dl Hemoglobin A1c 5.9 4.5-5.6 % Calcium Level 8.2 8.5-10.1 mg/dl Magnesium Level 2.1 1.8-2.4 mg/dl Impression Assessment and Plan Davian is an 80 yo male who presented following a day of chest pain and shortness of breath that was not relieved by resting. His initial troponin was elevated at 1.701 and most recently was 31.900. BNP was normal at 1426. He was hypertensive at arrival but this has improved since. He is in the high 90's for saturation. He showed BUN/Cr elevation when he was admitted, but this too has been improving. EKG was negative for ST elevation. Chest Pain: - No complaints of pain today. No shortness of breath. - Troponin continued to rise since admission. - BP has improved - BNP normal - Saturating well - In general, he appears stabilized and in recovery - Recheck Troponin tomorrow - Keep him on telemetry - Continue with Metoprolol 50 mg BID. - Nitro ointment for pain symptoms - Heparin for coagulation prophylaxis - Plan with Cardiology for catheterization to assess severity of CAD. Plan to hydrate well before and after to protect against contrast induced SHAHNAZ Afib: - Has irregular heart rate on physical exam and EKG - Denies palpitations - Continue with heparin IV - Stay on Telemetry Dementia: - AAO x 3. Was attentive during conversation. Mood and affect appropriate. - Continue with home meds donepezil and memantadine. Hyperlipidemia: - Continue with home med Atorvastatin Level of Care Telemetry Advanced Directives Existing Living Will: Yes Existing Power of City Recorder: Yes
--- NOTE | 2016-09-22 14:30 | Progress Note ---
Subjective Date of Service: Sep 22, 2016. Subjective Pt evaluation today including: conversation w/ patient, conversation w/ family (), physical exam, lab review, conversation w/ web consultant, review of inpatient medication list Pain: no chest pain since time of admission PO Intake: poor appetite currently Voiding: no voiding problems patient resting comfortably in bed, no issues overnight appreciate note from Dr. Lance, hold on elective C today due to weather, no helicopter transport available discussed plan with patient and his , answered all questions reviewed labs, Cr stable at 2.1, troponin up to 31 reviewed echo - EF 60-65% Problem List Medical Problems: (1) Chest pain Status: Acute (2) Elevated troponin Status: Acute (3) NSTEMI (non-ST elevated myocardial infarction) Status: Acute Review of Systems All Other Systems: Reviewed and Negative Medications Current Inpatient Medications Medications (Trade) Dose Ordered Sig/Korina Route Start Time Stop Time Status Last Admin Dose Admin Acetaminophen (Tylenol Tab) 650 mg Q4H PRN PO 09/21/16 06:30 10/21/16 06:29 09/21/16 20:59 650 MG Al Hydrox/Mg Hydrox/Simethicone (Maalox Max Susp) 15 ml Q4H PRN PO 09/21/16 06:30 10/21/16 06:29 Magnesium Hydroxide (Milk Of Magnesia Susp) 30 ml Q12H PRN PO 09/21/16 06:30 10/21/16 06:29 Ondansetron HCl (Zofran Inj) 4 mg Q6H PRN IV 09/21/16 06:30 10/21/16 06:29 Nitroglycerin (Nitrostat Tab) 0.4 mg UD PRN SL 09/21/16 06:30 10/21/16 06:29 Nitroglycerin (Nitroglycerin 2% Oint) 1 inch Q6H EXT 09/21/16 10:00 10/21/16 09:59 09/22/16 10:11 1 INCH Morphine Sulfate (MoRPHine SULFATE INJ) 2 mg Q30M PRN IV 09/21/16 06:30 10/05/16 06:29 Polyethylene (Miralax Powder Packet) 17 gm DAILY PRN PO 09/21/16 06:30 10/21/16 06:29 Atorvastatin Calcium (Lipitor Tab) 80 mg QAM PO 09/21/16 09:00 9/5/17 08:59 09/22/16 08:31 80 MG Donepezil HCl (Aricept Tab) 10 mg QAM PO 09/21/16 09:00 10/21/16 08:59 09/22/16 08:31 10 MG Memantine (Namenda Tab) 5 mg DAILY PO 09/21/16 09:00 10/21/16 08:59 09/22/16 08:32 5 MG Phenytoin Sodium (Dilantin Er Cap) 100 mg QAM PO 09/21/16 09:00 10/21/16 08:59 09/22/16 08:32 100 MG Heparin Sodium/ Dextrose 500 ml @ 23 mls/hr [id number] PRN IV 09/21/16 07:30 10/21/16 07:29 09/22/16 03:50 26 MLS/HR Aspirin (Ecotrin Tab) 81 mg QAM PO 09/22/16 09:00 10/22/16 08:59 09/22/16 08:31 81 MG Metoprolol Tartrate (Lopressor Tab) 50 mg BID PO 09/21/16 21:00 10/21/16 20:59 09/22/16 08:32 50 MG Objective Vital Signs Date Time Temp Pulse Resp B/P (MAP) Pulse Ox O2 Delivery O2 Flow Rate FiO2 09/22/16 12:00 Room Air 09/22/16 11:43 36.6 55 20 123/76 (92) 95 Room Air 09/22/16 08:04 37.1 74 18 126/74 (91) 94 Room Air 09/22/16 08:00 Room Air 09/22/16 04:00 36.7 60 18 121/72 (88) 97 09/22/16 04:00 Room Air 09/21/16 23:59 Room Air 09/21/16 23:52 37.0 57 18 128/70 (89) 96 Room Air 09/21/16 20:00 Room Air 09/21/16 19:26 37.4 70 20 117/85 (96) 94 Room Air 09/21/16 16:00 96 Room Air 09/21/16 15:11 37.3 59 20 142/77 (98) 95 Room Air Physical Exam General Appearance: WD/WN, no apparent distress Eyes: normal inspection, EOMI, sclerae normal ENT: normal ENT inspection, hearing grossly normal, pharynx normal Neck: supple, no adenopathy, no JVD, trachea midline Respiratory/Chest: chest non-tender, lungs clear, normal breath sounds, no respiratory distress, no accessory muscle use Cardiovascular: no edema, no gallop, no JVD, no murmur, + irregularly irregular Abdomen: normal bowel sounds, non tender, soft, no organomegaly Extremities: normal range of motion, non-tender, normal inspection, no pedal edema, no calf tenderness, pelvis stable Neurologic/Psychiatric: wire frame dipper II-XII nml as tested, no motor/sensory deficits, alert, normal mood/affect, oriented x 3 Skin: normal color, warm/dry, no rash Laboratory Results Last 24 Hours Test 09/21/16 14:39 09/22/16 05:59 09/22/16 13:06 09/22/16 13:57 Troponin I 21.100 ng/ml 31.900 ng/ml White Blood Count 10.25 K/uL Red Blood Count 4.18 M/uL Hemoglobin 14.1 g/dL Hematocrit 39.9 % Mean Corpuscular Volume 95.5 fL Mean Corpuscular Hemoglobin 33.7 pg Mean Corpuscular Hemoglobin Concent 35.3 g/dl RDW Standard Deviation 48.7 fL RDW Coefficient of Variation 14.0 % Platelet Count 139 K/uL Mean Platelet Volume 10.0 fL Activated Partial Thromboplast Time 85.4 SECONDS 71.7 SECONDS Partial Thromboplastin Ratio 3.3 2.8 Sodium Level 139 mmol/L Potassium Level 4.3 mmol/L Chloride Level 108 mmol/L Carbon Dioxide Level 25 mmol/L Anion Gap 6.0 mmol/L Blood Urea Nitrogen 28 mg/dl Creatinine 2.00 mg/dl Est Creatinine Clear Calc Drug Dose 28.5 ml/min Estimated GFR () 35.0 Estimated GFR (Non- 30.2 BUN/Creatinine Ratio 14.2 Random Glucose 145 mg/dl Estimated Average Glucose 123 mg/dl Hemoglobin A1c 5.9 % Calcium Level 8.2 mg/dl Magnesium Level 2.1 mg/dl Assessment and Plan 80 yo male with h/o chronic afib on AC and dementia, presented with chest pain/ pressure of several hours duration, elevated troponin, NSTEMI - NSTEMI: currently stable, no chest pain or pressure, vitals stable troponin up to 31 today echocardiogram with normal EF, no WM abnormalities continue aspirin, metoprolol, statin, heparin gtt no LHC today, plan for tomorrow - Atrial fibrillation: rates controlled, on heparin gtt for now resume Eliquis on d/c - CKD stage III/IV: Cr at 2.1 will need to give IV fluids prior to cath to prevent DIO - Dementia: chronic, stable, on Namenda and Aricept C tomorrow, continue tele
[2016-09-22 20:28] LABS: PARTIAL THROMBOPLASTIN RATIO 2.6
[2016-09-23] VITALS (14 sets, daily range): BP systolic 97–164; BP diastolic 58–103; PULSE 61–89; TEMP 36.4–37.5; O2SAT 92–98
[2016-09-23] MEDS: NITROGLYCERIN OINT 2% 1GM PACKET EXT SCH ×4 (04:28→22:27)
[2016-09-23 07:33] LABS: PARTIAL THROMBOPLASTIN RATIO 2.8
[2016-09-23] MEDS: ATORVASTATIN 40 MG TAB PO SCH (07:50)
[2016-09-23] MEDS: METOPROLOL TARTRATE 50 MG TAB PO SCH ×2 (07:50→22:27)
[2016-09-23] MEDS: MEMANTINE 5 MG TAB PO SCH (07:50)
[2016-09-23] MEDS: PHENYTOIN SODIUM ER 100 MG CAP PO SCH (07:50)
[2016-09-23] MEDS: DONEPEZIL HCL 10 MG TAB PO SCH (07:50)
[2016-09-23] MEDS: ASPIRIN 81 MG ECTAB PO SCH (07:50)
[2016-09-23 07:56] LABS: BUN/CREATININE RATIO 12.8 (10-20); CALCIUM 8.4 mg/dl (8.5-10.1); CREATININE 2.1 mg/dl (0.60-1.40); POTASSIUM 3.9 mmol/L (3.5-5.1)
--- NOTE | 2016-09-23 09:22 | Procedure Note ---
Pre-Mod Sedation Assessment General Date of Moderate Sedation: Sep 23, 2016. Vital Signs: Vital Signs Past 12 Hours Date Time Temp Pulse Resp B/P (MAP) Pulse Ox O2 Delivery O2 Flow Rate FiO2 09/23/16 07:45 36.9 73 18 133/81 (98) 93 Room Air 09/23/16 04:39 37.5 79 16 120/76 (91) 96 Room Air 09/23/16 04:00 Room Air 09/23/16 00:13 37.2 89 18 122/76 (91) 92 Room Air 09/22/16 23:59 Room Air Review Cardiovascular: no edema, no gallop, no JVD, no murmur, normal peripheral pulses, + abnormal rhythm (Afib) Abdomen: normal bowel sounds, non tender, soft, no organomegaly, no pulsatile mass Lungs: chest non-tender, lungs clear, normal breath sounds, no respiratory distress, no accessory muscle use Pre-Sedation Airway Assessment Oral Cavity: Dentures Able to Visualize Vocal Cords: No Short Thick Neck: No Hx of Sleep Apnea: No Smoking Status: Never Smoker ASA Classification: Class III Procedure Planning Contraindications-for Mod Sed: None Yes Notes The planned sedation has been discussed with the patient and consent obtained. I have identified the patient, determined the appropriateness of sedation and have assessed the patient immediately prior to the procedure. All medicine(s) and interventions are by my order.
[2016-09-23] MEDS ORDERED: HEPARIN SOD (PORCINE) 1000 UNIT/ML 10 ML VIAL ONE (09:48)
[2016-09-23] MEDS ORDERED: NiCARDipine HCL INJ 2.5 MG/ML 10 ML AMP ONE (09:48)
[2016-09-23] MEDS: MIDAZOLAM HCL 1 MG/ML 2ML VIAL ONE (09:48)
[2016-09-23] MEDS ORDERED: FENTANYL CITRATE INJ 50 MCG/1 ML 2 ML VIAL ONE (09:48)
[2016-09-23] MEDS ORDERED: NITROGLYCERIN/D5W 100MCG/ML 20ML SYR ONE (09:49)
[2016-09-23] MEDS ORDERED: SODIUM CHLORIDE 0.9% 1000ML 1,000 ML IV SCH ×2 (10:00→11:20)
[2016-09-23] MEDS ORDERED: SODIUM CHLORIDE 0.9% 1000ML 250 ML IV PRN (11:11)
--- NOTE | 2016-09-23 11:11 | Procedure Note ---
Post-Mod Sedation Assessment General Date of Moderate Sedation Sep 23, 2016. Vital Signs: Vital Signs Past 12 Hours Date Time Temp Pulse Resp B/P (MAP) Pulse Ox O2 Delivery O2 Flow Rate FiO2 09/23/16 11:04 82 16 133/85 (101) 95 Room Air 09/23/16 10:49 83 16 122/80 (94) 98 Mask 3 09/23/16 08:00 Room Air 09/23/16 07:45 36.9 73 18 133/81 (98) 93 Room Air 09/23/16 04:39 37.5 79 16 120/76 (91) 96 Room Air 09/23/16 04:00 Room Air 09/23/16 00:13 37.2 89 18 122/76 (91) 92 Room Air 09/22/16 23:59 Room Air Review - Discharge Criteria Vital Signs Stable: Yes Alert/Oriented/Conversant: Yes Returned to Baseline Mental St: Yes Nausea Absent/Minimal: Yes Pain/Discomfort/Absent/Minimal: Yes Normal/Baseline Respirations: Yes Active Bleeding?: No Pt Received D/C Instructions: N/A Prescriptions Given: None Specific Proced. D/C Criteria Distal Pulses Present (Cardiac: Yes Groin site assessed-Card Cath: N/A Voided Prior To Discharge: N/A Discharged Patients Adult Escort/Transportation: N/A
[2016-09-23] MEDS ORDERED: ATROPINE SULFATE 0.1 MG/ML 5ML SYR IV PRN (11:15)
[2016-09-23] MEDS ORDERED: ONDANSETRON INJ 2 MG/ML 2 ML VIAL IV PRN (11:15)
[2016-09-23] MEDS ORDERED: ACETAMINOPHEN 325 MG TAB PO PRN (11:15)
--- NOTE | 2016-09-23 11:20 | Cardiac Catheterization ---
Procedure Note Procedure Date Sep 23, 2016. Pre-Procedure Diagnosis Non STEMI AUC Score 8 Post-Procedure Diagnosis Severe CAD, Elevated Intracardiac Pressures Procedure(s) Performed Coronary Angiography, Left Heart Cath Business Division Chair Dr. Lance Private Banker(s) GIO Alonso Estimated Blood Loss 15 ml Medication(s) Fentanyl, Heparin, Nicardipine, Versed, Lidocaine 1% Summary of Findings Clinical indications: Non ST elevation myocardial infarction. No prior history of coronary artery disease. History of factor 5 Leiden. History of dyslipidemia , mild dementia, and chronic kidney disease. Electrocardiogram with sinus rhythm, right bundle branch block, anterior septal RI, shallow T- wave inversions in the lateral leads. Peak troponin I 31.9. Echocardiogram with anteroseptal, apical, and posterior lateral hypokinesis. Normal overall LV systolic function. No significant valvular abnormalities. Catheterization site: 6 Thai slender glide sheath right radial artery. Catheter: 5 Thai [place] [employer] TRAP 3.5 diagnostic catheter. Hemostasis: Terumo TR band. Complications: None. Findings: Coronary artery calcifications were present. Right dominant circulation. Large caliber left main giving rise to medium caliber left anterior descending, left circumflex, ramus intermedius coronary arteries. 20% ostial and 10% distal left main stenoses. Total ostial LAD occlusion. Left-to- left collateral flow from ramus intermedius and left circumflex coronary arteries to the LAD. Also right to left collateral flow to the LAD. The mid LAD was visualized as a medium caliber vessel. Ramus with ostial and proximal 20% stenoses. Ostial and proximal left circumflex 30-50% stenoses. Mid circumflex with 10-30% stenosis followed by a 75% eccentric stenosis prior to the origin of a left circumflex marginal. The marginal was a small to medium caliber vessel. Ostial and proximal 90% stenoses. Following the origin of the marginal the circumflex continued on as a small caliber vessel. The distal circumflex gave rise to a very small caliber posterolateral artery. The right coronary was a medium caliber vessel. Proximal 30% stenosis. This was then followed by a 50% stenosis and then a focal eccentric 75% stenosis. The mid RCA had a 50-60% stenosis. Distal RCA 30% stenosis. Distal RCA gave rise to a medium caliber posterior descending artery and a very small caliber posterolateral artery. These vessels had no obstructive disease. Plan: Maximize current medical therapy for anti anginal, blood pressure, and thrombotic control. Refer for CT surgical consultation in regards undergoing CABG surgery. Hemodynamics Rest Ao: 101/49/73 mm Hg Final Ao: 115/54/83 mm Hg LV: 110/20 mm Hg Recommendations CABG Specimens None Radiation Exposure (mGy) 1860 Contrast (mls) 50 Fluids (cc crystalloids) 75 Anesthesia Intravenous Versed and fentanyl. Lidocaine 1 % for local. Procedural Complication(s) None Disposition PCU ACC Data Cardiac Status Clinical evaluation leading to the procedure CAD Presntation: Non STEMI Anginal Classification: CCS IV Heart Failure: No Cardiogenic Shock w/in 24Hrs: No Cardiac Arrest w/in 24Hrs: No Imaging studies past 6 months: Yes Stress studies past 6 months: No Standard Exercise Stress Test: No Stress Echocardiogram: No Stress Testing w/SPECT MPI: No Cardiac CTA: No Coronary Anatomy Dominant: Right Left Main (% Stenosis): Ostial (20), Distal (10) LAD (% Stenosis): Ostial (100) Circumflex (% Stenosis): Ostial (30-50), Proximal (30-50), Mid (10-30,75) OM1 (% Stenosis): Ostial (90), Proximal (90) L PL1 (% Stenosis): Normal RCA (% Stenosis): Proximal (30), Mid (50-60), Distal (30) R PDA (% Stenosis): Normal R PL1 (% Stenosis): Normal Ramus (% Stenosis): Ostial (20), Proximal (20) Left Ventricular Angiography EF (%): NA Diagnostic Physician's Name: Valdo Lance M.D. Closure Device Percutaneous Entry Location: Radial Closure Device: Radial Band Recommendations: CABG
[2016-09-23] MEDS: ACETAMINOPHEN 325 MG TAB PO PRN ×2 (11:23→15:33)
--- NOTE | 2016-09-23 13:02 | Medical Student: [facility] ---
Med Student Progress Note Date of Service Sep 23, 2016. Subjective Davian if feeling well today. He has no complaints today. He also mentions that when he gets up to go to the bathroom that he has been doing okay and has not had shortness of breath, chest pain, or pressure when getting up and moving. His did cancel her appt for today so that she can be with him. Their only question was "when will the catheterization procedure be?" I told them that this will likely come down to Cardiology and their schedule. But we will do what we can on our end to make sure he is well hydrated prior to and after the procedure. He denies any new complaints and is laying in bed comfortably. Review of Systems Constitutional: No fever, No chills, No sweats, No weakness, No fatigue, No problem reported Respiratory: No cough, No sputum, No wheezing, No shortness of breath, No dyspnea on exertion, No dyspnea at rest, No problem reported Cardiac: No chest pain, No orthopnea, No edema, No claudication, No palpitations, No problem reported Abdomen: No pain, No nausea, No vomiting, No diarrhea, No constipation Objective Vital Signs Date Time Temp Pulse Resp B/P (MAP) Pulse Ox O2 Delivery O2 Flow Rate FiO2 09/23/16 12:15 64 16 123/62 (82) 95 Room Air 09/23/16 12:00 Room Air 09/23/16 12:00 65 16 151/77 (101) 95 Room Air 09/23/16 11:45 16 128/77 (94) 96 Nasal Cannula 3.0 09/23/16 11:30 36.4 78 16 130/80 (97) 96 Nasal Cannula 3.0 82 09/23/16 11:04 82 16 133/85 (101) 95 Room Air 09/23/16 10:49 83 16 122/80 (94) 98 Mask 3 09/23/16 08:00 Room Air 09/23/16 07:45 36.9 73 18 133/81 (98) 93 Room Air 09/23/16 04:39 37.5 79 16 120/76 (91) 96 Room Air 09/23/16 04:00 Room Air 09/23/16 00:13 37.2 89 18 122/76 (91) 92 Room Air 09/22/16 23:59 Room Air 09/22/16 20:00 96 Room Air 09/22/16 19:35 37.7 89 20 115/62 (79) 94 Room Air 09/22/16 16:00 95 Room Air 09/22/16 15:53 36.6 68 20 128/75 (92) 95 Room Air Physical Exam General Appearance: WD/WN, no apparent distress ENT: hearing grossly normal, pharynx normal Neck: supple, no JVD, no carotid bruits, trachea midline Respiratory/Chest: chest non-tender, lungs clear, normal breath sounds, no respiratory distress, no accessory muscle use Cardiovascular: regular rate, rhythm, no edema, no gallop, no JVD, no murmur Abdomen: normal bowel sounds, non tender, soft, no organomegaly, no pulsatile mass Extremities: non-tender, normal inspection, no pedal edema, no calf tenderness , normal capillary refill Neurologic/Psychiatric: alert, normal mood/affect, oriented x 3 Skin: normal color, warm/dry, no rash Laboratory Results Last 24 Hours Test 09/22/16 13:06 09/22/16 13:57 09/22/16 20:00 09/22/16 22:01 Activated Partial Thromboplast Time 71.7 SECONDS 68.6 SECONDS Partial Thromboplastin Ratio 2.8 2.6 Troponin I 24.000 ng/ml 17.900 ng/ml Test 09/23/16 06:34 09/23/16 10:33 Activated Partial Thromboplast Time 73.8 SECONDS Partial Thromboplastin Ratio 2.8 Sodium Level 140 mmol/L Potassium Level 3.9 mmol/L Chloride Level 107 mmol/L Carbon Dioxide Level 24 mmol/L Anion Gap 9.0 mmol/L Blood Urea Nitrogen 27 mg/dl Creatinine 2.10 mg/dl Est Creatinine Clear Calc Drug Dose 27.1 ml/min Estimated GFR () 33.0 Estimated GFR (Non- 28.5 BUN/Creatinine Ratio 12.8 Random Glucose 119 mg/dl Calcium Level 8.4 mg/dl Kaolin Activated Coagulation Time 136 SECONDS Assessment and Plan Assessment and Plan: Davian is an 80 yo male with a history of Afib, CKD stage 3, and Factor V Leiden mutation who presented to the ED on 09/21 following a day of chest pain and shortness of breath on 09/20. Today he has no concerns, and objectively he is doing well. His vitals have been within normal limits and he has been saturating oxygen well. He is tolerating medications well and is able to ambulate without reproduction of symptoms. Chest pain: - Clinically stable, continues to improve, has been ambulating without difficulty - Awaiting seed laboratory assistant to assess status of coronary vessels - Hydrating via IV to prevent SHAHNAZ following seed laboratory assistant in the setting of CKD - Tolerating medications well - Consult Cardiology to see if they want to d/c heparin for today for the procedure. If not, then continue heparin IV - Continue with atorvastatin, metoprolol and nitro ointment - Remain on telemetry - Plan for seed laboratory assistant - promote ambulation - Acetaminophen 650mg PRN for pain Dementia: - Alert and oriented x3 - No concerns that he is developing delirium or worsening in condition - Continue with memantine and donepezil Seizure: - 2 seizures in lifetime in the setting of starting simvastatin (per patient) - Uncertain as to if he still should be taking phenytoin - May need to speak to neurology and ask if he should still be taking phenytoin.
--- NOTE | 2016-09-23 14:42 | Progress Note ---
Subjective Date of Service: Sep 23, 2016. Subjective Pt evaluation today including: conversation w/ patient, conversation w/ family ( at the bedside), physical exam, review of inpatient medication list Pain: no chest pain PO Intake: adequate Voiding: no voiding problems patient had LHC today, 3 vessel disease, would need CABG discussed results with patient and his at the bedside recommend seeing cardiothoracic surgeon as outpatient with sons available for the visit no chest pain or pressure, doing well, eating well fluids running for renal function after contrast Problem List Medical Problems: (1) Chest pain Status: Acute (2) Elevated troponin Status: Acute (3) NSTEMI (non-ST elevated myocardial infarction) Status: Acute Review of Systems All Other Systems: Reviewed and Negative Medications Current Inpatient Medications Medications (Trade) Dose Ordered Sig/Korina Route Start Time Stop Time Status Last Admin Dose Admin Acetaminophen (Tylenol Tab) 650 mg Q4H PRN PO 09/21/16 06:30 10/21/16 06:29 09/23/16 11:23 650 MG Al Hydrox/Mg Hydrox/Simethicone (Maalox Max Susp) 15 ml Q4H PRN PO 09/21/16 06:30 10/21/16 06:29 Magnesium Hydroxide (Milk Of Magnesia Susp) 30 ml Q12H PRN PO 09/21/16 06:30 10/21/16 06:29 Ondansetron HCl (Zofran Inj) 4 mg Q6H PRN IV 09/21/16 06:30 10/21/16 06:29 Nitroglycerin (Nitrostat Tab) 0.4 mg UD PRN SL 09/21/16 06:30 10/21/16 06:29 Nitroglycerin (Nitroglycerin 2% Oint) 1 inch Q6H EXT 09/21/16 10:00 10/21/16 09:59 09/23/16 04:28 1 INCH Morphine Sulfate (MoRPHine SULFATE INJ) 2 mg Q30M PRN IV 09/21/16 06:30 10/05/16 06:29 Polyethylene (Miralax Powder Packet) 17 gm DAILY PRN PO 09/21/16 06:30 10/21/16 06:29 Atorvastatin Calcium (Lipitor Tab) 80 mg QAM PO 09/21/16 09:00 10/21/16 08:59 09/23/16 07:50 80 MG Donepezil HCl (Aricept Tab) 10 mg QAM PO 09/21/16 09:00 10/21/16 08:59 09/23/16 07:50 10 MG Memantine (Namenda Tab) 5 mg DAILY PO 09/21/16 09:00 10/21/16 08:59 09/23/16 07:50 5 MG Phenytoin Sodium (Dilantin Er Cap) 100 mg QAM PO 09/21/16 09:00 10/21/16 08:59 09/23/16 07:50 100 MG Heparin Sodium/ Dextrose 500 ml @ 23 mls/hr [id number] PRN IV 09/21/16 07:30 10/21/16 07:29 09/22/16 03:50 26 MLS/HR Aspirin (Ecotrin Tab) 81 mg QAM PO 09/22/16 09:00 10/22/16 08:59 09/23/16 07:50 81 MG Metoprolol Tartrate (Lopressor Tab) 50 mg BID PO 09/21/16 21:00 10/21/16 20:59 09/23/16 07:50 50 MG Sodium Chloride 1,000 ml @ 75 mls/hr [id number] IV 09/23/16 11:20 10/23/16 11:19 09/23/16 11:23 75 MLS/HR Sodium Chloride 250 ml @ 999 mls/hr Q16M PRN IV 09/23/16 11:11 10/23/16 11:10 Atropine Sulfate (Atropine Sulfate 0.1MG/Ml Inj) 0.6 mg PRN PRN IV 09/23/16 11:15 10/23/16 11:14 Objective Vital Signs Date Time Temp Pulse Resp B/P (MAP) Pulse Ox O2 Delivery O2 Flow Rate FiO2 09/23/16 14:00 61 16 97/58 (71) 95 Room Air 09/23/16 12:45 36.5 63 16 100/63 (75) 95 Room Air 09/23/16 12:15 64 16 123/62 (82) 95 Room Air 09/23/16 12:00 Room Air 09/23/16 12:00 65 16 151/77 (101) 95 Room Air 09/23/16 11:45 16 128/77 (94) 96 Nasal Cannula 3.0 09/23/16 11:30 36.4 78 16 130/80 (97) 96 Nasal Cannula 3.0 82 09/23/16 11:04 82 16 133/85 (101) 95 Room Air 09/23/16 10:49 83 16 122/80 (94) 98 Mask 3 09/23/16 08:00 Room Air 09/23/16 07:45 36.9 73 18 133/81 (98) 93 Room Air 09/23/16 04:39 37.5 79 16 120/76 (91) 96 Room Air 09/23/16 04:00 Room Air 09/23/16 00:13 37.2 89 18 122/76 (91) 92 Room Air 09/22/16 23:59 Room Air 09/22/16 20:00 96 Room Air 09/22/16 19:35 37.7 89 20 115/62 (79) 94 Room Air 09/22/16 16:00 95 Room Air 09/22/16 15:53 36.6 68 20 128/75 (92) 95 Room Air Physical Exam General Appearance: WD/WN, no apparent distress Eyes: normal inspection, EOMI, sclerae normal ENT: normal ENT inspection, hearing grossly normal, pharynx normal Neck: supple, no adenopathy, no JVD, trachea midline Respiratory/Chest: chest non-tender, lungs clear, normal breath sounds, no respiratory distress, no accessory muscle use Cardiovascular: regular rate, rhythm, no edema, no gallop, no JVD, no murmur Abdomen: normal bowel sounds, non tender, soft, no organomegaly Extremities: normal range of motion, non-tender, normal inspection, no pedal edema, no calf tenderness, pelvis stable Neurologic/Psychiatric: souvenir assembler II-XII nml as tested, no motor/sensory deficits, alert, normal mood/affect, oriented x 3 Skin: normal color, warm/dry, no rash Lymphatic: no adenopathy Laboratory Results Last 24 Hours Test 09/22/16 20:00 09/22/16 22:01 09/23/16 06:34 09/23/16 10:33 Activated Partial Thromboplast Time 68.6 SECONDS 73.8 SECONDS Partial Thromboplastin Ratio 2.6 2.8 Troponin I 17.900 ng/ml Sodium Level 140 mmol/L Potassium Level 3.9 mmol/L Chloride Level 107 mmol/L Carbon Dioxide Level 24 mmol/L Anion Gap 9.0 mmol/L Blood Urea Nitrogen 27 mg/dl Creatinine 2.10 mg/dl Est Creatinine Clear Calc Drug Dose 27.1 ml/min Estimated GFR () 33.0 Estimated GFR (Non- 28.5 BUN/Creatinine Ratio 12.8 Random Glucose 119 mg/dl Calcium Level 8.4 mg/dl Kaolin Activated Coagulation Time 136 SECONDS Assessment and Plan 80 yo male with h/o chronic afib on AC and dementia, presented with chest pain/ pressure of several hours duration, elevated troponin, NSTEMI - NSTEMI: currently stable, no chest pain or pressure, vitals stable troponin trending down today echocardiogram with normal EF, no WM abnormalities continue aspirin, metoprolol, statin, heparin gtt C today - 3 vessel disease, 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
[2016-09-23] MEDS: HEPARIN 25,000 UNIT/500ML D5W 500 ML IV PRN (14:46)
[2016-09-23] MEDS ORDERED: METOPROLOL TARTRATE 1 MG/ML VIAL ONE (16:03)
[2016-09-23] MEDS ORDERED: FUROSEMIDE 40 MG/4 ML VIAL ONE ×2 (16:08→16:09)
[2016-09-23] MEDS ORDERED: FUROSEMIDE INJ 40 MG in SYRINGE 0 ML IV SCH ×2 (16:15→16:30)
[2016-09-23] MEDS ORDERED: METOPROLOL TARTRATE 1 MG/ML VIAL IV STA (16:26)
--- NOTE | 2016-09-23 17:23 | DIAGNOSTIC IMAGING REPORT ---
CHEST ONE VIEW PORTABLE HISTORY: 80 years-old Male hypoxia COMPARISON: 09/21/2016 chest radiograph TECHNIQUE: Portable upright AP view of the chest FINDINGS: Cardiac silhouette is mildly enlarged and unchanged. Mild pulmonary vascular congestion is redemonstrated without pneumothorax. There are hazy bibasilar opacities noted which suggest atelectasis. There is mild blunting of the bilateral costophrenic angles. The bones appear to be grossly intact. IMPRESSION: 1. Cardiomegaly with mild pulmonary vascular congestion and suspected trace bilateral pleural effusions. 2. Hazy bibasilar opacities suggest atelectasis. The above report was generated using voice recognition software. It may contain grammatical, syntax or spelling errors. Electronically signed by: John York M.D. 09/23/2016 5:21 PM Dictated Date/Time: 09/23/2016 5:20 PM
--- NOTE | 2016-09-23 17:43 | Critical Care Consultation ---
Critical Care Consultation Date of Consultation: Sep 23, 2016. Attending Physician: Arsenio Jama D.O. Reason for Consultation: NSTEMI, post cath. History of Present Illness Dear Dr. Jama, Dr. Lance: Thank you for your kind referral of Mr. Valentin to the ICU . this is 80 yo, m, with hx of mild dementia, nonsmoker, no hx of DM or HTN, presented to the hospital with ACS since thursday, the pt was admitted to the hospital and r/in for NSTEMI , the pt underwent PCI, which showed multi-vessels disease, the pt treated with B blockers, Heparin drip, morphine and diurestics. his symptoms improved, and was transferred to the ICU for monitoring pending transfer to a tertiary care center. Family History Heart disease Social History Smoking Status: Never Smoker Alcohol Use: none Drug Use: none Marital Status: Housing Status: lives with significant other Occupation Status: retired Allergies Coded Allergies: Oxycodone (Verified Allergy, Unknown, UNKNOWN, 09/21/16) Penicillins (Verified Allergy, Unknown, UNKNOWN, 09/21/16) Home Medications Scheduled Alendronate (Fosamax *), 70 MG PO thursday Apixaban (Eliquis), 2.5 MG PO BID Atorvastatin (Lipitor), 1 TAB PO QAM Cetirizine (Zyrtec), 10 MG PO QAM Cholecalciferol (Vitamin D), 1,000 INTER.UNIT PO QAM Donepezil Hcl (Aricept *), 10 MG PO QAM Memantine (Namenda), 5 MG PO DAILY Multivitamin (Multivitamin), 1 TAB PO QAM Phenytoin Sodium (Dilantin *), 100 MG PO QAM Current Inpatient Medications Current Inpatient Medications Medications (Trade) Dose Ordered Sig/Korina Route Start Time Stop Time Status Last Admin Dose Admin Acetaminophen (Tylenol Tab) 650 mg Q4H PRN PO 09/21/16 06:30 10/21/16 06:29 09/23/16 15:33 650 MG Al Hydrox/Mg Hydrox/Simethicone (Maalox Max Susp) 15 ml Q4H PRN PO 09/21/16 06:30 10/21/16 06:29 Magnesium Hydroxide (Milk Of Magnesia Susp) 30 ml Q12H PRN PO 09/21/16 06:30 10/21/16 06:29 Ondansetron HCl (Zofran Inj) 4 mg Q6H PRN IV 09/21/16 06:30 10/21/16 06:29 Nitroglycerin (Nitrostat Tab) 0.4 mg UD PRN SL 09/21/16 06:30 10/21/16 06:29 Nitroglycerin (Nitroglycerin 2% Oint) 1 inch Q6H EXT 09/21/16 10:00 10/21/16 09:59 09/23/16 15:34 1 INCH Morphine Sulfate (MoRPHine SULFATE INJ) 2 mg Q30M PRN IV 09/21/16 06:30 10/05/16 06:29 09/23/16 15:53 2 MG Polyethylene (Miralax Powder Packet) 17 gm DAILY PRN PO 09/21/16 06:30 10/21/16 06:29 Atorvastatin Calcium (Lipitor Tab) 80 mg QAM PO 09/21/16 09:00 10/21/16 08:59 09/23/16 07:50 80 MG Donepezil HCl (Aricept Tab) 10 mg QAM PO 09/21/16 09:00 10/21/16 08:59 09/23/16 07:50 10 MG Memantine (Namenda Tab) 5 mg DAILY PO 09/21/16 09:00 10/21/16 08:59 09/23/16 07:50 5 MG Phenytoin Sodium (Dilantin Er Cap) 100 mg QAM PO 09/21/16 09:00 10/21/16 08:59 09/23/16 07:50 100 MG Heparin Sodium/ Dextrose 500 ml @ 21 mls/hr [id number] PRN IV 09/21/16 07:30 10/21/16 07:29 09/22/16 03:50 26 MLS/HR Aspirin (Ecotrin Tab) 81 mg QAM PO 09/22/16 09:00 10/22/16 08:59 09/23/16 07:50 81 MG Metoprolol Tartrate (Lopressor Tab) 50 mg BID PO 09/21/16 21:00 10/21/16 20:59 09/23/16 07:50 50 MG Sodium Chloride 250 ml @ 999 mls/hr Q16M PRN IV 09/23/16 11:11 10/23/16 11:10 Atropine Sulfate (Atropine Sulfate 0.1MG/Ml Inj) 0.6 mg PRN PRN IV 09/23/16 11:15 10/23/16 11:14 Review of Systems Constitutional: No fever, No chills, No sweats, No weight loss, No weakness, No fatigue, No problem reported Eyes: No worsening of vision, No eye pain, No redness, No discharge, No diplopia, No problem reported ENT: No hearing loss, No unusual epistaxis, No nasal symptoms, No sore throat, No tinnitus, No dental problems, No trouble swallowing, No problem reported Respiratory: + dyspnea on exertion Cardiovascular: + chest pain, + orthopnea Abdomen: No pain, No nausea, No vomiting, No diarrhea, No constipation, No GI bleeding, No problem reported Musculoskeletal: No joint pain, No muscle pain, No swelling, No calf pain, No problem reported Genitourinary - Male: No hematuria, No dysuria, No urinary frequency, No urinary urgency, No urinary hesitancy, No urinary retention, No urinary incontinence, No penile discharge, No lesions, No impotence, No problem reported Neurologic: No memory loss, No paralysis, No weakness, No numbness/tingling, No vertigo, No balance problems, No problem reported Psychiatric: No depression symptoms, No anhedonism, No anxiety, No insomnia, No substance abuse, No problem reported Hematologic / Lymphatic: No abnormal bleeding/bruising, No clotting problems, No swollen lymph nodes, No night sweats, No problem reported Integumentary: No rash, No itch, No new/changing skin lesions, No color change , No bleeding, No problem reported Allergic / Immunologic: No environmental allergies, No seasonal allergies, No pet sensitivities, No food allergies, No hives, No frequent infections, No poor healing, No prolonged convalescence, No problem reported Physical Exam Date Time Temp Pulse Resp B/P (MAP) Pulse Ox O2 Delivery O2 Flow Rate FiO2 09/23/16 16:46 36.5 78 16 95 3.0 09/23/16 16:31 78 164/103 09/23/16 14:00 61 16 97/58 (71) 95 Room Air 09/23/16 12:45 36.5 63 16 100/63 (75) 95 Room Air 09/23/16 12:15 64 16 123/62 (82) 95 Room Air 09/23/16 12:00 Room Air 09/23/16 12:00 65 16 151/77 (101) 95 Room Air 09/23/16 11:45 16 128/77 (94) 96 Nasal Cannula 3.0 09/23/16 11:30 36.4 78 16 130/80 (97) 96 Nasal Cannula 3.0 82 09/23/16 11:04 82 16 133/85 (101) 95 Room Air 09/23/16 10:49 83 16 122/80 (94) 98 Mask 3 09/23/16 08:00 Room Air 09/23/16 07:45 36.9 73 18 133/81 (98) 93 Room Air 09/23/16 04:39 37.5 79 16 120/76 (91) 96 Room Air 09/23/16 04:00 Room Air 09/23/16 00:13 37.2 89 18 122/76 (91) 92 Room Air 09/22/16 23:59 Room Air 09/22/16 20:00 96 Room Air 09/22/16 19:35 37.7 89 20 115/62 (79) 94 Room Air General Appearance: well-appearing, WD/WN, no apparent distress Eyes: PERRLA Neck: no tenderness Respiratory: rales, other Cardiovasular: regular rate/rhythm, normal S1S2 Abdomen: non tender, no rebound, no masses Upper Extremities: no edema Neuro: alert, oriented x 3, normal motor exam, normal sensation Psychiatric: normal affect Laboratory Results Last 24 Hours Test 09/22/16 20:00 09/22/16 22:01 09/23/16 06:34 09/23/16 10:33 Activated Partial Thromboplast Time 68.6 SECONDS 73.8 SECONDS Partial Thromboplastin Ratio 2.6 2.8 Troponin I 17.900 ng/ml Sodium Level 140 mmol/L Potassium Level 3.9 mmol/L Chloride Level 107 mmol/L Carbon Dioxide Level 24 mmol/L Anion Gap 9.0 mmol/L Blood Urea Nitrogen 27 mg/dl Creatinine 2.10 mg/dl Est Creatinine Clear Calc Drug Dose 27.1 ml/min Estimated GFR () 33.0 Estimated GFR (Non- 28.5 BUN/Creatinine Ratio 12.8 Random Glucose 119 mg/dl Calcium Level 8.4 mg/dl Kaolin Activated Coagulation Time 136 SECONDS Test 09/23/16 17:05 Diagnostic Results labd and imaging reviewed personally, consistent with recent NSTEMI, CKD and CHF. Assessment & Plan 1- NSTEMI, multi-vessels, 2- CKD. 3- no other risk factors for ACS. Plan: 1- heparin drip. 2- nitroglycerines ( paste). 3- monitor in ICU. 4- Pending transfer to tertiary care center. 5- oral intake. 6- statins. 7- Oxygen. 8- discussed with Dr. Jama and Dr. Lance. discussed with the staff in the ICU. CCT 35 min.
--- NOTE | 2016-09-23 17:51 | CARDIOLOGY PROGRESS NOTE ---
DATE: 09/23/2016 SUBJECTIVE: The patient was seen by me this morning prior to his cardiac catheterization. He was seen by me at the time of his cardiac catheterization. He was just again seen by me this afternoon. This morning, he had been feeling fine. He had had no complaints of any anginal symptoms overnight. No orthopnea or PND. No dyspnea. No palpitations, lightheadedness, or syncope. This morning, he underwent cardiac catheterization via a 6-Macanese sheath in the right radial artery. This revealed 3-vessel coronary artery disease. Total ostial LAD occlusion. 75% proximal RCA stenosis. 90% ostial and proximal left circumflex marginal stenosis. The left ventricular end-diastolic pressure was 20 mmHg. He had [id number] collateral flow to the LAD from both the left circumflex and the ramus intermedius coronary artery. There was [id number] collateral flow from the RCA to the LAD. He tolerated the procedure well. He was hemodynamically stable during the procedure. He had no complaints of dyspnea or chest pain during the procedure. His oxygen saturations were stable. Because of baseline chronic kidney disease, he was given intravenous fluids during and following the procedure. He also had received intravenous fluids prior to the procedure. Following the procedure, the flow rate was 75 mL per hour of normal saline. This afternoon, after getting up to walk to the restroom in his room, he developed severe chest tightness associated with diaphoresis as well as dyspnea. He was promptly evaluated by nursing staff. His systolic blood pressure was elevated at 164. Diastolic pressure 103. His heart rate, which had been in the 60s-70s ____ greater than 100. He was given intravenous morphine. I was called to see the patient emergently. I saw him quickly after this call. The patient was complaining of chest pain and dyspnea. His exam revealed rales throughout all lung hendrickson. He was diaphoretic. He was given 5 mg of intravenous metoprolol, 2 sublingual nitroglycerin tablets, and 80 mg of intravenous furosemide. His intravenous fluids were stopped. With the above medications, his dyspnea resolved. His chest discomfort resolved. His ventricular rate decreased into the 60s. His blood pressure decreased to systolics between 100 and 110. Diastolic pressures were in the 60-70 range. A Mcnamara catheter was placed. Electrocardiogram was performed during this episode. It revealed atrial fibrillation with ventricular rate 102 beats per minute. Right bundle branch block. T-wave inversions in 1, aVL, 2, 3, aVF, and V1-V6. Echocardiogram was performed after resolution of his symptoms of chest discomfort and dyspnea. This revealed no significant changes compared to the echocardiogram performed on September 22. On my interpretation of the echo from September 22 as well as today's echo, there is distal septal and apical hypokinesis. Posterolateral hypokinesis. Overall, LV systolic function normal. Today's echocardiogram revealed trace to mild mitral regurgitation. Because of the patient's acute decompensation this afternoon and his severe underlying coronary artery disease, he was transferred to the intensive care unit for continued observation and monitoring. It had been discussed with the patient and his that his coronary lesions warranted CABG surgery. This morning, it was felt that this procedure could be performed on an elective basis. Based on this afternoon events, it may be better that he have the bypass surgery performed sooner. It may be prudent to have the patient transferred to a tertiary center to undergo bypass surgery while he was still in the inpatient setting. The above assessment and recommendations were discussed with the nursing staff, the hospitalist Dr. Arsenio Jama, and the patient's by me. PHYSICAL EXAMINATION: NECK: Today revealed no jugular venous distention. HEART: Increased rate. Irregular rhythm. No murmur or rub was heard. ABDOMEN: Soft. Nontender. No palpable masses or organomegaly. EXTREMITIES: Revealed no pretibial edema. NEUROLOGIC: Showed him to be awake and alert. He can move all extremities well. LABORATORY DATA: This morning revealed sodium 140, potassium 3.9, chloride 107, carbon dioxide 24, BUN 27, creatinine 2.10, and random glucose 119. The troponin I last evening was 17.900. Peak troponin I was on September 22 at 05:59 a.m. It was 31.900. ASSESSMENT: 1. Status post acute non-ST elevation myocardial infarction prompting this admission. 2. Severe 3-vessel coronary artery disease on cardiac catheterization performed this morning. 3. Normal overall left ventricular systolic function. No significant change in the LV overall systolic function and wall motion on echocardiogram just performed compared to yesterday's echocardiogram. 4. Development of pulmonary edema acutely today. Suspect this is a combination of LV diastolic dysfunction and myocardial ischemia. Marked improvement in symptoms with preload reduction with morphine and nitrates. He also received a dose of intravenous metoprolol. He also received intravenous furosemide. However, his symptoms improved and his vital signs improved prior to any significant diuresis having occurred. 5. No evidence of any vascular complications at the right radial catheterization site. Exam this afternoon shows no bleeding or hematoma at this site. No evidence for arterial insufficiency. 6. Chronic kidney disease. 7. Electrocardiogram this afternoon with atrial fibrillation. 8. The patient was on long-term anticoagulation therapy at the time of admission with Eliquis. 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 The Eliquis was discontinued at the time of admission and he was placed on intravenous heparin. PLAN: 1. Transfer to intensive care unit for closer monitoring. 2. Repeat troponin I q. 8 hours x3. 3. Daily electrocardiogram. 4. Continue topical nitrates, metoprolol, and aspirin. Continue atorvastatin. 5. Continue intravenous heparin. 6. It has already been discussed by me with the patient and his that transfer to a tertiary cardiac center is now indicated. We will monitor the patient here at [facility] overnight. We will attempt to arrange transfer tomorrow. One hour of critical care time was spent by me today in management of this patient for his acute congestive heart failure and chest pain.
--- NOTE | 2016-09-23 18:40 | ECHOCARDIOGRAM REPORT ---
*NOTICE TO RECEIVING DEMOCRAT AGENCY This information is strictly Confidential and protected under [place] law. [place] law prohibits you from making any further disclosure of this information unless further disclosure is expressly permitted by the written consent of the person to whom it pertains or is authorized by law. A general authorization for the release of medical or other information is not sufficient for this purpose. Hospital accepts no responsibility if the information is made available to any other person, INCLUDING THE PATIENT. Interpretation Summary * Name: SHARON CEDEÑO Study Date: 09/23/2016 04:34 PM BP: 164/103 mmHg * Patient Location: [facility] HR: 78 * : 1935 (M/d/yyyy) Gender: Male Height: 69 in * Age: 80 yrs Ethnicity: CA Weight: 164 lb * Ordering Physician: Valdo Lance MD, FACC * Referring Physician: Valdo Lance MD, FACC * Performed By: Francesca Delgado RCS * * Reason For Study: CHF * BSA: 1.9 m2 * Low normal overall left ventricular systolic function. * Mild distal septal, anteroseptal, apical, inferior, and posterior hypokinesis. * No mitral regurgitation noted. Procedure Details * A two-dimensional transthoracic echocardiogram, with color flow Doppler was performed. * Limited views were obtained. * Procedure performed with physician present. Left Ventricle * The left ventricle is normal in size. * There is normal left ventricular wall thickness. * Ejection Fraction = 50-55%. * Left ventricular systolic function is low normal. * Mild distal septal ,anteroseptal , apical , inferior and posterior hypokinesis. Right Ventricle * The right ventricle is normal in size and function. Atria * The left atrial size is normal. * Right atrial size is normal. Mitral Valve * There is no mitral valve stenosis. * There is no mitral regurgitation noted. Pericardium/Pleural * There is no pericardial effusion. MMode 2D Measurements and Calculations IVSd 0.85 cm IVSs 1.2 cm LVIDd 3.6 cm LVIDs 2.7 cm LVPWd 0.87 cm LVPWs 1.2 cm IVS/LVPW 0.98 FS 26.1 % EDV(Teich) 55.1 ml ESV(Teich) 26.4 ml EF(Teich) 52.1 % EDV(cubed) 47.4 ml ESV(cubed) 19.1 ml EF(cubed) 59.6 % % IVS thick 35.5 % % LVPW thick 34.6 % LV mass(C)d 88.0 grams LV mass(C)dI 46.3 grams/m\S\2 LV mass(C)s 88.8 grams LV mass(C)sI 46.8 grams/m\S\2 CO(Teich) 2.2 l/min CI(Teich) 1.1 l/min/m\S\2 SV(Teich) 28.7 ml SI(Teich) 15.1 ml/m\S\2 CO(cubed) 2.1 l/min CI(cubed) 1.1 l/min/m\S\2 SV(cubed) 28.3 ml SI(cubed) 14.9 ml/m\S\2 LVAd ap4 30.3 cm\S\2 LVLd ap4 8.1 cm EDV(MOD-sp4) 97.0 ml LVAs ap4 20.5 cm\S\2 LVLs ap4 7.3 cm ESV(MOD-sp4) 49.0 ml EF(MOD-sp4) 49.5 % LVAd ap2 28.9 cm\S\2 LVLd ap2 8.6 cm EDV(MOD-sp2) 81.0 ml LVAs ap2 15.4 cm\S\2 LVLs ap2 7.0 cm ESV(MOD-sp2) 29.0 ml EF(MOD-sp2) 64.2 % CO(MOD-sp4) 3.6 l/min CI(MOD-sp4) 1.9 l/min/m\S\2 SV(MOD-sp4) 48.0 ml SI(MOD-sp4) 25.3 ml/m\S\2 CO(MOD-sp2) 3.9 l/min CI(MOD-sp2) 2.1 l/min/m\S\2 SV(MOD-sp2) 52.0 ml SI(MOD-sp2) 27.4 ml/m\S\2
[2016-09-24] VITALS (11 sets, daily range): BP systolic 102–121; BP diastolic 60–88; PULSE 66–105; TEMP 36.9–37.1; O2SAT 94–98
[2016-09-24] MEDS: NITROGLYCERIN OINT 2% 1GM PACKET EXT SCH ×2 (04:31→08:40)
[2016-09-24] MEDS: PHENYTOIN SODIUM ER 100 MG CAP PO SCH (08:39)
[2016-09-24] MEDS: ASPIRIN 81 MG ECTAB PO SCH (08:39)
[2016-09-24] MEDS: ATORVASTATIN 40 MG TAB PO SCH (08:39)
[2016-09-24] MEDS: DONEPEZIL HCL 10 MG TAB PO SCH (08:39)
[2016-09-24] MEDS: MEMANTINE 5 MG TAB PO SCH (08:40)
[2016-09-24] MEDS: METOPROLOL TARTRATE 50 MG TAB PO SCH (08:40)
[2016-09-24 09:36] LABS: HEMATOCRIT 42.9 % (42-52); MEAN CELL VOLUME 97.5 fL (80-100); MEAN CORPUSCULAR HEMOGLOBIN 33.6 pg (25-34); MEAN CORPUSCULAR HGB CONC 34.5 g/dl (32-36); MEAN PLATELET VOLUME 10.2 fL (7.4-10.4); PLATELET COUNT 158 K/uL (130-400)
[2016-09-24 09:50] LABS: PARTIAL THROMBOPLASTIN RATIO 1.9
[2016-09-24 09:58] LABS: BUN/CREATININE RATIO 12.9 (10-20); CALCIUM 8.6 mg/dl (8.5-10.1); CREATININE 2.4 mg/dl (0.60-1.40); MAGNESIUM 2.4 mg/dl (1.8-2.4); POTASSIUM 3.8 mmol/L (3.5-5.1)
--- NOTE | 2016-09-24 11:50 | CARDIOLOGY PROGRESS NOTE ---
DATE: 09/24/2016 DATE: 09/24/2016 SUBJECTIVE: The patient was seen by me this morning is his ICU room. Following yesterday's episode of acute pulmonary edema he has improved greatly. After he received medications yesterday afternoon for his acute pulmonary edema his symptoms quickly resolved. For observational purposes, he was transferred to the intensive care unit. In the intensive care unit, he has had no dyspnea. He denies any orthopnea or PND overnight. No palpitations, lightheadedness, or syncope. No abdominal pain. No pain in his right radial catheterization site. No leg pain. No neurologic symptoms. No bleeding complaints. CURRENT MEDICATIONS: Aspirin 81 mg daily, metoprolol tartrate 50 mg b.i.d., nitroglycerin ointment 1 inch q. 6 hours, atorvastatin 80 mg daily, Aricept 10 mg daily, Namenda 5 mg daily, phenytoin 100 mg daily a.m., intravenous heparin by weight based protocol, and several p.r.n. medications. ALLERGIES AND ADVERSE DRUG REACTIONS: OXYCODONE, PENICILLINS. Intake and output yesterday 684/1550. Today 225/275. PHYSICAL EXAMINATION: VITAL SIGNS: This morning with oral temperature 37, pulse 71, blood pressure 112/68, pulse oximetry 97% on 4 liters per nasal cannula oxygen. GENERAL APPEARANCE: Shows him to be in no distress. NECK: No jugular venous distention. LUNGS: Normal respiratory effort. Clear. No rales or wheezes. HEART: Irregularly irregular. No S3. No murmur. No rub. ABDOMEN: Soft. Nontender. No palpable masses or organomegaly. No bruits. Normal bowel sounds. EXTREMITIES: Right radial catheterization site without bleeding or hematoma. Nontender. No evidence for arterial insufficiency in right hand. No pretibial edema. No calf tenderness. No cyanosis or clubbing. NEUROLOGIC: Awake and alert. He can move all extremities well. PSYCHIATRIC: Affect is normal. DATA: Electrocardiogram performed this morning reveals sinus rhythm with premature ventricular beats. Right bundle branch block. Inferior Q-waves. Nonspecific ST and T-wave abnormalities. Compared to yesterday's electrocardiogram, the lateral T-wave inversions have resolved. ADDENDUM: Today's electrocardiogram also reveals anteroseptal AK. This was previously seen on this admissions electrocardiograms. Echocardiogram performed yesterday revealed low normal overall LV systolic function. Mild distal septal, apical, inferior, and posterior hypokinesis. No mitral regurgitation. Normal right ventricular size and systolic function. No pericardial effusion. LABORATORY DATA: Labs today with PTT 48.4, hemoglobin 14.8, hematocrit 42.9, platelet count 158. Metabolic profile with sodium 138, potassium 3.8, chloride 103, carbon dioxide 27, BUN 31, creatinine 2.4, random glucose 157. Magnesium 2.4. Troponin I yesterday evening was 13.00. At 12:56 a.m. this morning it was 28.900. Repeat at 9:18 a.m. today 20.900. ASSESSMENT: 1. Admission with non-ST elevation myocardial infarction. Cardiac catheterization performed yesterday via the right radial artery revealed 3-vessel coronary artery disease. Total ostial LAD occlusion. Left to left and right to left collateral flow. Severe left circumflex marginal stenosis 90%. Moderate proximal RCA stenosis of 75%. Good overall LV systolic function. 2. Development of acute pulmonary edema associated with increased heart rate and increased blood pressure yesterday afternoon. Quick response to medical therapy. After transfer to intensive care unit he has shown no further evidence of congestive heart failure. His oxygen saturations are good. Lung exam today is clear. He has no symptoms suggestive of heart failure. 3. Atrial arrhythmias. His electrocardiogram this morning shows sinus rhythm with premature supraventricular beats. Monitor history reveals episodes of atrial fibrillation versus sinus rhythm with frequent multifocal supraventricular beats. He is currently on intravenous heparin. PTT is therapeutic. 4. Chronic kidney disease. Creatinine increased slightly from yesterday. He did receive diuretic after his acute pulmonary edema yesterday. He also had received contrast dye yesterday at the time of his cardiac catheterization. 5. History of factor V Leiden mutation. History of deep venous thrombosis. No current signs or symptoms of any thrombotic episodes. PLAN: 1. The patient has significant underlying coronary artery disease. He easily went into pulmonary edema yesterday. This is likely secondary to myocardial ischemia causing left ventricular diastolic dysfunction. He has a total ostial LAD occlusion. However, good collateral flow to the mid and distal LAD. His coronary arteries past the site of stenoses are good targets for revascularization with bypass surgery. Will contact CT surgery at [facility] in [place] for consideration of transfer for him to undergo CABG surgery. 2. At this time, continue current medications. His blood pressure and heart rate are under control today. 3. Transfer has been discussed with the patient and his . They both agree with this plan. Addendum: Patient has been accepted for transfer to [facility] CT surgery service for consideration of CABG surgery. JENNIFER
--- NOTE | 2016-09-24 12:15 | Critical Care Progress Note ---
Critical Care Progress Note Date of Service Sep 24, 2016. ICU Day ICU Day Number: [address] Zelaya Subjective Patient is an 80 year-old who was brought to the ICU last evening for close monitoring after having post catheterization chest pain. The patient was found to have multivessel disease on catheterization. Recommendation is for transport to tertiary care facility for CABG. Patient is currently on heparin drip. He reports no complaints overnight. He has no chest pain. He denies any headaches, dizziness, lightheadedness, nausea, vomiting, abdominal pain, numbness/weakness to the extremities, or abdominal discomfort. Patient is currently eating his breakfast on evaluation. Objective VITAL SIGNS - Vital signs and nursing notes were reviewed. GENERAL - 80-year-old male appearing his stated age who is in no acute distress. Communicates well with provider and answers questions appropriately. LUNGS - Chest wall symmetric without accessory muscle use, intercostals retractions, or central cyanosis. Normal vesicular breath sounds CTA B/L. No wheezes, rales, or rhonchi appreciated. CARDIAC - RRR with S1/S2. No murmur, rubs, or gallops appreciated. No reproducible tenderness to palpation appreciated over the anterior chest wall. ABDOMEN - Abdominal contour flat and without pulsations or visible masses. BS normoactive all four quadrants. No tenderness, palpable masses, hepatosplenomegaly, or ascites noted. EXTREMITIES - No clubbing or peripheral cyanosis. No pretibial edema present. +3 /5 radial and dorsalis pedis pulses palpated throughout. +5/5 strength noted in UE/LE bilaterally. NEUROLOGIC - Cranial nerves II through XII grossly intact. Sensory intact to light touch throughout. PSYCH - A&Ox3 and cooperates fully with examiner. Pt is very pleasant and interacts well with examiner. Current SOFA Score SOFA Score Response (Comments) Value Platelets (x10) > 150 0 Bilirubin (mg/dL) < 1.2 0 [place] Coma Score 15 0 Level of Hypotension No Hypotension 0 Creatinine (mg/dL) 2.0 - 3.4 2 Total 2 Assessment & Plan (1) Multi-vessel coronary artery stenosis (2) NSTEMI (non-ST elevated myocardial infarction) (3) SHAHNAZ (acute kidney injury) (4) New onset atrial fibrillation (5) Elevated troponin Reason Critically Ill: 80-year-old gentleman with multivessel disease currently on heparin drip and pending transfer to tertiary care facility for CABG. Neuro - * History of dementia - Continue home Rx. Cardiac - * NSTEMI status post cath - multivessel CAD with need for CABG for definitive management. * Remains on Heparin gtt. * Continue Metoprolol/ASA/Lipitor. * Nitro as needed for Chest Pain. * Troponins Peaked. * Dr. Lance to speak with [facility] for transfer. Respiratory - * Monitor Pulse Ox. * O2 as needed. GI - * PO intake dependent on scheduled transfer/procedure. RENAL/LYTES - * SHAHNAZ * Cr elevated from baseline - likely contrast induced nephropathy. - Will monitory. HEME - * Stable H&H. Continue to monitor. ID - * No s/s of infection to this point. * Monitor fever curve. LINES/IV ACCESS - * PIVs intact. DVT PROPHYLAXIS - * Current Heparin gtt. I have personally spent 35 minutes of critical care time in the direct management of this patient. This is a life/limb threatening event. This includes time spent evaluating patient, direct bedside care, chart review, placing orders, interpretation of diagnostic studies, discussion with consultants, patient, and family members, as well as other required patient management activities. This time is exclusive of all separately billable procedures, and teaching time and separate from and in addition to any other critical care service time. Thank you for this consultation allow us to be part of this patient's care. Please refer to my attending physician's documentation for any further recommendations. attending note, the pt is seen , examined independently, chart reviewed with the staff in details. no events overnight, no chest pain, only minimal sob. VSS. S1S2 , RRR, lungs with scattered crackles. abdomen is benign. CCE. Neuro is non focal. labs and imaging reviewed personally. A/P: 1- CAD, with multi vessel disease. appreciate Dr. Lance input. 2- CHF. 3- Dementia, Mild. Plan: 1- continue current regimen. 2- planned for transfer to tertiary care center for eval for CABG. 3- DVT prophylaxis. 4- continue b blockers, ASA and statins. 5- discussed with the pt and the at the bed side,. stable for transfer from [facility] standpoint. CCT 35 min. Consults & Procedures Consultants: Dr. Lance - Cardiology Dr. Jama - Hospitalist Procedures: None Data Medications: Current Inpatient Medications Medications (Trade) Dose Ordered Sig/Korina Route Start Time Stop Time Status Last Admin Dose Admin Acetaminophen (Tylenol Tab) 650 mg Q4H PRN PO 09/21/16 06:30 10/21/16 06:29 09/23/16 15:33 650 MG Al Hydrox/Mg Hydrox/Simethicone (Maalox Max Susp) 15 ml Q4H PRN PO 09/21/16 06:30 10/21/16 06:29 Magnesium Hydroxide (Milk Of Magnesia Susp) 30 ml Q12H PRN PO 09/21/16 06:30 10/21/16 06:29 Ondansetron HCl (Zofran Inj) 4 mg Q6H PRN IV 09/21/16 06:30 10/21/16 06:29 Nitroglycerin (Nitrostat Tab) 0.4 mg UD PRN SL 09/21/16 06:30 10/21/16 06:29 Nitroglycerin (Nitroglycerin 2% Oint) 1 inch Q6H EXT 09/21/16 10:00 10/21/16 09:59 09/24/16 08:40 1 INCH Morphine Sulfate (MoRPHine SULFATE INJ) 2 mg Q30M PRN IV 09/21/16 06:30 10/05/16 06:29 09/23/16 15:53 2 MG Polyethylene (Miralax Powder Packet) 17 gm DAILY PRN PO 09/21/16 06:30 10/21/16 06:29 Atorvastatin Calcium (Lipitor Tab) 80 mg QAM PO 09/21/16 09:00 10/21/16 08:59 09/24/16 08:39 80 MG Donepezil HCl (Aricept Tab) 10 mg QAM PO 09/21/16 09:00 10/21/16 08:59 09/24/16 08:39 10 MG Memantine (Namenda Tab) 5 mg DAILY PO 09/21/16 09:00 10/21/16 08:59 09/24/16 08:40 5 MG Phenytoin Sodium (Dilantin Er Cap) 100 mg QAM PO 09/21/16 09:00 10/21/16 08:59 09/24/16 08:39 100 MG Heparin Sodium/ Dextrose 500 ml @ 21 mls/hr [id number] PRN IV 09/21/16 07:30 10/21/16 07:29 09/22/16 03:50 26 MLS/HR Aspirin (Ecotrin Tab) 81 mg QAM PO 09/22/16 09:00 10/22/16 08:59 09/24/16 08:39 81 MG Metoprolol Tartrate (Lopressor Tab) 50 mg BID PO 09/21/16 21:00 10/21/16 20:59 09/24/16 08:40 50 MG Sodium Chloride 250 ml @ 999 mls/hr Q16M PRN IV 09/23/16 11:11 10/23/16 11:10 Atropine Sulfate (Atropine Sulfate 0.1MG/Ml Inj) 0.6 mg PRN PRN IV 09/23/16 11:15 10/23/16 11:14 Vital Signs: Date Time Temp Pulse Resp B/P (MAP) Pulse Ox O2 Delivery O2 Flow Rate FiO2 09/24/16 10:08 105 20 119/88 (98) 97 Nasal Cannula 4.0 09/24/16 08:01 37.1 87 20 120/65 (83) 97 Nasal Cannula 4.0 09/24/16 08:00 97 Nasal Cannula 4.0 09/24/16 06:14 71 20 112/68 (83) 95 Nasal Cannula 4.0 09/24/16 04:00 4.0 09/24/16 04:00 37.0 75 18 121/60 (80) 94 Nasal Cannula 4.0 09/24/16 02:11 67 16 121/60 (80) 94 Nasal Cannula 4.0 09/24/16 00:01 37.1 66 18 109/62 (78) 98 Nasal Cannula 4.0 09/24/16 00:01 4.0 09/23/16 22:30 64 20 118/66 (83) 95 Nasal Cannula 4.0 09/23/16 20:00 36.6 67 20 103/62 (76) 98 Nasal Cannula 4.0 09/23/16 19:15 95 4.0 09/23/16 18:00 36.8 65 18 117/71 (86) 96 Nasal Cannula 4.0 09/23/16 16:46 36.5 78 16 95 3.0 09/23/16 16:31 78 164/103 09/23/16 16:00 Room Air 09/23/16 14:00 61 16 97/58 (71) 95 Room Air 09/23/16 12:45 36.5 63 16 100/63 (75) 95 Room Air 09/23/16 12:15 64 16 123/62 (82) 95 Room Air 09/23/16 12:00 Room Air 09/23/16 12:00 65 16 151/77 (101) 95 Room Air Laboratory Results: Last 24 Hours Test 09/23/16 17:05 09/23/16 21:15 09/24/16 00:56 09/24/16 09:18 Troponin I 13.000 ng/ml 28.900 ng/ml 20.900 ng/ml Activated Partial Thromboplast Time 51.0 SECONDS 48.4 SECONDS Partial Thromboplastin Ratio 2.0 1.9 White Blood Count 10.60 K/uL Red Blood Count 4.40 M/uL Hemoglobin 14.8 g/dL Hematocrit 42.9 % Mean Corpuscular Volume 97.5 fL Mean Corpuscular Hemoglobin 33.6 pg Mean Corpuscular Hemoglobin Concent 34.5 g/dl RDW Standard Deviation 50.0 fL RDW Coefficient of Variation 14.0 % Platelet Count 158 K/uL Mean Platelet Volume 10.2 fL Sodium Level 138 mmol/L Potassium Level 3.8 mmol/L Chloride Level 103 mmol/L Carbon Dioxide Level 27 mmol/L Anion Gap 8.0 mmol/L Blood Urea Nitrogen 31 mg/dl Creatinine 2.40 mg/dl Est Creatinine Clear Calc Drug Dose 23.7 ml/min Estimated GFR () 28.1 Estimated GFR (Non- 24.2 BUN/Creatinine Ratio 12.9 Random Glucose 157 mg/dl Calcium Level 8.6 mg/dl Magnesium Level 2.4 mg/dl
--- NOTE | 2016-09-24 13:05 | Medical Student: [facility] ---
Med Student Progress Note Date of Service Sep 24, 2016. Subjective Pt evaluation today including: conversation w/ patient Davian is doing better today than he was yesterday evening when he had chest pain and shortness of breath. Yesterday around 4pm he had an episode of chest pain and shortness of breath with systolic in the 160's and diastolic in 100's. Dr. Lance was present at the time for management. Following this episode, he was transferred to the ICU and had an episode of chest pain when going to the bathroom later that evening. He has had no events since then. Denies n/v/d, constipation, fevers, chills, swelling, sputum production, abdominal swelling, and confusion. It has been explained to him the plan for transfer to another facility for CABG procedure, due to the severity of occlusion as well as symptomatic nature. He understands and has no further questions at this point. Review of Systems Constitutional: No fever, No chills, No sweats Respiratory: + shortness of breath, + dyspnea on exertion, No cough, No sputum , No wheezing, No hemoptysis Cardiac: + chest pain, No orthopnea, No PND, No edema, No claudication, No palpitations Abdomen: No pain, No nausea, No vomiting, No diarrhea, No constipation Objective Vital Signs Date Time Temp Pulse Resp B/P (MAP) Pulse Ox O2 Delivery O2 Flow Rate FiO2 09/24/16 12:01 36.9 79 20 112/67 (82) 96 Nasal Cannula 4.0 09/24/16 12:00 96 Nasal Cannula 4.0 09/24/16 10:08 105 20 119/88 (98) 97 Nasal Cannula 4.0 09/24/16 08:01 37.1 87 20 120/65 (83) 97 Nasal Cannula 4.0 09/24/16 08:00 97 Nasal Cannula 4.0 09/24/16 06:14 71 20 112/68 (83) 95 Nasal Cannula 4.0 09/24/16 04:00 4.0 09/24/16 04:00 37.0 75 18 121/60 (80) 94 Nasal Cannula 4.0 09/24/16 02:11 67 16 121/60 (80) 94 Nasal Cannula 4.0 09/24/16 00:01 37.1 66 18 109/62 (78) 98 Nasal Cannula 4.0 09/24/16 00:01 4.0 09/23/16 22:30 64 20 118/66 (83) 95 Nasal Cannula 4.0 09/23/16 20:00 36.6 67 20 103/62 (76) 98 Nasal Cannula 4.0 09/23/16 19:15 95 4.0 09/23/16 18:00 36.8 65 18 117/71 (86) 96 Nasal Cannula 4.0 09/23/16 16:46 36.5 78 16 95 3.0 09/23/16 16:31 78 164/103 09/23/16 16:00 Room Air 09/23/16 14:00 61 16 97/58 (71) 95 Room Air Physical Exam General Appearance: WD/WN, no apparent distress ENT: hearing grossly normal Neck: supple, no JVD, no carotid bruits, trachea midline Respiratory/Chest: chest non-tender, no respiratory distress, no accessory muscle use, + crackles (present mainly in left base, but very minimal crackles can be heard in the right base) Cardiovascular: regular rate, rhythm, + systolic murmur (early systolic murmur , heard best over DAVIS border) Abdomen: normal bowel sounds, non tender, soft, no pulsatile mass Extremities: non-tender, normal inspection, no pedal edema, no calf tenderness , normal capillary refill Neurologic/Psychiatric: alert, normal mood/affect, oriented x 3 Skin: normal color, warm/dry, no rash Laboratory Results Last 24 Hours Test 09/23/16 17:05 09/23/16 21:15 09/24/16 00:56 09/24/16 09:18 Troponin I 13.000 ng/ml 28.900 ng/ml 20.900 ng/ml Activated Partial Thromboplast Time 51.0 SECONDS 48.4 SECONDS Partial Thromboplastin Ratio 2.0 1.9 White Blood Count 10.60 K/uL Red Blood Count 4.40 M/uL Hemoglobin 14.8 g/dL Hematocrit 42.9 % Mean Corpuscular Volume 97.5 fL Mean Corpuscular Hemoglobin 33.6 pg Mean Corpuscular Hemoglobin Concent 34.5 g/dl RDW Standard Deviation 50.0 fL RDW Coefficient of Variation 14.0 % Platelet Count 158 K/uL Mean Platelet Volume 10.2 fL Sodium Level 138 mmol/L Potassium Level 3.8 mmol/L Chloride Level 103 mmol/L Carbon Dioxide Level 27 mmol/L Anion Gap 8.0 mmol/L Blood Urea Nitrogen 31 mg/dl Creatinine 2.40 mg/dl Est Creatinine Clear Calc Drug Dose 23.7 ml/min Estimated GFR () 28.1 Estimated GFR (Non- 24.2 BUN/Creatinine Ratio 12.9 Random Glucose 157 mg/dl Calcium Level 8.6 mg/dl Magnesium Level 2.4 mg/dl Assessment and Plan Assessment and Plan: Davian is an 80 yo male who presented for chest pain of 1 day's duration. He was clinically stable for most of his admission, and asymptomatic. 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 This was managed with nitro ointment, morphine, furosemide, and metoprolol. He had a second event of chest pain that evening (after being transferred to ICU) while going to the bathroom. Since then he has had no events. At this point, the plan is to transfer him to [place] for CABG procedure, due to severity of symptoms and Cath findings. He underwent CXR and Echo yesterday. CXR showed pulmonary congestion like changes and atelectasis. The echo showed 50-55% EF and septal and apical areas of hypokinesis. Chest pain: - Clinically stable at the time of visit, now has difficulty with activity however - Awaiting confirmation to transfer for CABG procedure - Continuing with BP management - Tolerating medications well - Continue with atorvastatin, metoprolol and nitro ointment - Remain on telemetry - Plan for CABG - Acetaminophen 650mg PRN for pain Dementia: - Alert and oriented x3 - No concerns that he is developing delirium or worsening in condition - Continue with memantine and donepezil Seizure: - 2 seizures in lifetime, both in the setting of starting simvastatin (per patient) - Uncertain as to if he still should be taking phenytoin - May need to speak to neurology and ask if he should still be taking phenytoin.
--- NOTE | 2016-09-24 13:47 | Discharge Summary ---
Discharge Summary Date of Service Sep 24, 2016. Discharge Summary Admission Date: Sep 21, 2016 at 06:31 Discharge Date: Sep 24, 2016 Discharge Disposition: Acute care facility Principal Diagnosis: NSTEMI Problems/Secondary Diagnoses: Acute diastolic heart failure Acute hypoxia Hypertension triple vessel CAD CKD stage III/IV Immunizations: Have You Had Influenza Vaccine: N/A History of Tetanus Vaccine?: Yes History of Pneumococcal: Yes History of Hepatitis B Vaccine: No Procedures: Left heart catheterization on 09/23: triple vessel disease, full details in report and on imaging Echocardiogram: preserved EF, no wall motion abnormalities on 09/23 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 Breathing more comfortably. Diuresed nearly one liter since Lasix 80mg given yesterday. Vitals are stable. Reviewed labs, Cr went up to 2.4 from 2.[address] Lance, he spoke with cardiothoracic surgery at [facility] and they will accept patient to evaluate for CABG. Review of Systems: Constitutional: No fever, No chills, No sweats, No weight loss, No weakness , No fatigue, No problem reported Eyes: No worsening of vision, No eye pain, No redness, No discharge, No diplopia, No problem reported ENT: No hearing loss, No unusual epistaxis, No nasal symptoms, No sore throat, No tinnitus, No dental problems, No trouble swallowing, No problem reported Respiratory: + dyspnea on exertion, No cough, No sputum, No wheezing, No shortness of breath, No dyspnea at rest, No hemoptysis, No problem reported Cardiovascular: No chest pain, No orthopnea, No PND, No edema, No claudication, No palpitations, No problem reported Abdomen: No pain, No nausea, No vomiting, No diarrhea, No constipation, No GI bleeding, No problem reported Musculoskeletal: No joint pain, No muscle pain, No swelling, No calf pain, No problem reported Genitourinary - Male: + problem reported (bean placed) Neurologic: + weakness, No memory loss, No paralysis, No numbness/tingling, No vertigo, No balance problems, No problem reported Psychiatric: No depression symptoms, No anhedonism, No anxiety, No insomnia , No substance abuse, No problem reported Endocrine: No fatigue, No excessive thirst, No excessive urination, No problem reported Hematologic / Lymphatic: No abnormal bleeding/bruising, No clotting problems , No swollen lymph nodes, No night sweats, No problem reported Integumentary: No rash, No itch, No new/changing skin lesions, No color change, No bleeding, No problem reported Physical Exam: General Appearance: WD/WN, no apparent distress Eyes: normal inspection, EOMI, sclerae normal ENT: normal ENT inspection, hearing grossly normal, pharynx normal Neck: supple, no adenopathy, no JVD, trachea midline Respiratory/Chest: chest non-tender, lungs clear, normal breath sounds, no respiratory distress, no accessory muscle use Cardiovascular: no edema, no gallop, no JVD, no murmur, normal peripheral pulses, + irregularly irregular Abdomen / GI: normal bowel sounds, non tender, soft, no organomegaly Extremities: normal inspection, no calf tenderness, normal capillary refill , no pedal edema, normal range of motion, pelvis stable Neurologic/Psychiatric: team supervisor II-XII nml as tested, no motor/sensory deficits , alert, normal mood/affect, normal reflexes, oriented x 3 Skin: normal color, warm/dry, no rash Lymphatic: no adenopathy Hospital Course 80 yo male with h/o chronic afib on AC and dementia, presented with chest pain/ pressure of several hours duration, elevated troponin, NSTEMI - NSTEMI: troponin peaked in the high 30's, trending down as expected on 09/23 in the afternoon on 09/23 the patient experienced increased chest pressure, shortness of breath, diaphoresis CXR showed pulmonary edema, rales on exam treated with metoprolol and Lasix 80mg IV and nitropaste, pain resolved and in the AM on 09/24 he is chest pain free echocardiogram on 09/22 with normal EF, no WM abnormalities repeat echo on 09/23 after experiencing chest pain and dyspnea still showed preserved EF, no systolic failure continue aspirin, metoprolol, statin, heparin gtt LHC on 09/23 in the morning showed severe 3 vessel coronary disease initial plan was to treat medically, discharge to home and follow up with CT surgery since the patient decompensated and was transferred to ICU on 09/23, deemed too unstable to go home Dr. Lance discussed with CT surgery at [facility], they will accept patient for transfer - Atrial fibrillation: rates controlled on metoprolol (home dose), on heparin gtt for now for anticoagulation consider resuming Eliquis on d/c but will be up to CT surgeon - CKD stage III/IV: baseline Cr is 2.0-2.1 with GFR in high 20's to low 30's was given NSS prior to heart cath and then gentle fluids at 75cc/hr afterwards developed acute diastolic HF so fluids stopped Lasix 80mg IV given, diuresed 1500cc yesterday Cr is 2.4 today, continue to monitor - Acute diastolic heart failure: resolving, breathing much better, UO of 1500cc since Lasix yesterday will likely require PRN Lasix again, no evidence of systolic dysfunction on two separate echocardiograms - Dementia: chronic, stable, on Namenda and Aricept Total Time Spent: Greater than 30 minutes This includes examination of the patient, discharge planning, medication reconciliation, and communication with other providers. Discharge Instructions Please refer to the electronic Patient Visit Report (Discharge Instructions) for additional information. Follow-Up CT surgery at [facility] Additional Copies To Marcial Em III, CRNP; Valdo Lance M.D.
[2016-11-04] MEDS ORDERED: DOCU100C31 PO (09:12)
[2016-11-04] MEDS ORDERED: METO25TA56 PO (09:12)
[2016-11-04] MEDS ORDERED: FAMO20TA9 PO (09:12)
[2016-11-04] MEDS ORDERED: ASPI81TA28 PO (09:12)
== END 2016-09-24 15:30 | disposition short-term general hospital (02) | DRG 280 ==
LOC: C.EDB 04:29 → C.2T 06:31 → ENRESERV 07:02 → C.MSICU 09-23 16:41
PROVIDERS: ADMIT Internal Medicine; ATTEND Internal Medicine
PROC: B201YZZ Plain Radiography of Multiple Coronary Arteries using Other Contrast (ICD-10-PCS; principal; 2016-09-23 10:07)
PROC: 4A023N7 Measurement of Cardiac Sampling and Pressure, Left Heart, Percutaneous Approach (ICD-10-PCS; principal; 2016-09-23 10:07)
DX: I21.4 Non-ST elevation (NSTEMI) myocardial infarction (principal); I50.31 Acute diastolic (congestive) heart failure; D68.51 Activated protein C resistance; I13.0 Hypertensive heart and chronic kidney disease with heart failure and stage 1 through stage 4 chronic kidney disease, or unspecified chronic kidney disease; N18.4 Chronic kidney disease, stage 4 (severe); I45.10 Unspecified right bundle-branch block; I25.10 Atherosclerotic heart disease of native coronary artery without angina pectoris; I48.2 Chronic atrial fibrillation; G40.909 Epilepsy, unspecified, not intractable, without status epilepticus; F03.90 Unspecified dementia, unspecified severity, without behavioral disturbance, psychotic disturbance, mood disturbance, and anxiety; E78.5 Hyperlipidemia, unspecified; Z79.01 Long term (current) use of anticoagulants; Z79.899 Other long term (current) drug therapy; Z86.718 Personal history of other venous thrombosis and embolism

== ENCOUNTER → 2016-11-05 | Outpatient (CLI) | payer BC ==
[~2016-11-05] MED LIST changes: -APIX1TAB PO; -ARC10 PO; +ASPI81TA28 PO; +DOCU100C31 PO; +FAMO20TA9 PO; +METO25TA56 PO
[2016-11-05 10:21] LABS: INR 2.8 (0.9-1.1); PROTHROMBIN TIME (PATIENT) 31.3 SECONDS (9.0-12.0)
--- NOTE | 2016-11-05 11:23 | DIAGNOSTIC IMAGING REPORT ---
ART DOP LOWER EXT BILAT CLINICAL HISTORY: 80 years-old Male presenting with WOUNDS. TECHNIQUE: Real-time grayscale and color and spectral Doppler ultrasound imaging of the bilateral lower extremity arteries was performed. Measurements calculated based on NASCET criteria. COMPARISON: None. FINDINGS: Right: Common femoral artery: Patent. Peak systolic velocity 103 cm/s. Superficial femoral artery: Patent. Peak systolic velocity 80-123 cm/s. Popliteal artery: Patent. Peak systolic velocity 72 cm/s. Anterior tibial artery: Patent. Peak systolic velocity 32-126 cm/s. Posterior tibial artery: Patent. Peak systolic velocity 97-102 cm/s. Dorsalis pedis: Patent. Peak systolic velocity 57 cm/s. Peroneal artery: Patent. Peak systolic velocity 50-79 cm/s. Left: Common femoral artery: Patent. Peak systolic velocity 76 cm/s. Superficial femoral artery: Patent. Peak systolic velocity 69-104 cm/s. Popliteal artery: Patent. Peak systolic velocity 74 cm/s. Anterior tibial artery: Patent. Peak systolic velocity 86-131 cm/s. Posterior tibial artery: Patent. Peak systolic velocity 71-106 cm/s. Dorsalis pedis: Patent. Peak systolic velocity 52 cm/s. Peroneal artery: Patent. Peak systolic velocity 31-41 cm/s. RENATO Brachial: Right: 98 mmHg, Left: 97 mmHg. Ankle (Posterior tibial): Right: 119 mmHg, Left: 113 mmHg. Ankle (Dorsalis pedis): Right: 92 mmHg, Left: 104 mmHg. Ankle/Brachial Index: Right: 0.94-1.21, Left: 1.06-1.15. Reference ranges: Normal RENATO 1.0-1.4; 0.9-0.99 borderline; less than 0.9 abnormal. IMPRESSION: 1. No hemodynamically significant stenosis seen within the lower extremity arteries. 2. Normal ankle-brachial indices. Electronically signed by: Yosi Marroquin M.D. 11/05/2016 11:22 AM Dictated Date/Time: 11/05/2016 11:18 AM
== END | disposition home or self-care (01) ==
LOC: C.ULTR 09:09
PROVIDERS: ATTEND Emergency Medicine
DX: S91.109A Unspecified open wound of unspecified toe(s) without damage to nail, initial encounter (principal); S91.302A Unspecified open wound, left foot, initial encounter; X58.XXXA Exposure to other specified factors, initial encounter; I48.91 Unspecified atrial fibrillation

== ENCOUNTER → 2016-12-03 | Outpatient (CLI) | payer BC ==
[2016-12-03 15:52] LABS: INR 1.3 (0.9-1.1); PROTHROMBIN TIME (PATIENT) 14.3 SECONDS (9.0-12.0)
== END | disposition home or self-care (01) ==
LOC: C.LAB 14:22
PROVIDERS: ATTEND Neuromusculoskeletal Medicine & OMM
DX: I48.91 Unspecified atrial fibrillation (principal)

== ENCOUNTER → 2016-12-13 | Outpatient (CLI) | payer BC ==
[~2016-12-13] MED LIST changes: +ASPI-232 PO; +CALC0.2510 PO; +DONE10TA12 PO; +METO-478 PO; +NMN10 PO; +WARF1TAB6 PO
== END | disposition home or self-care (01) ==
LOC: C.LAB 09:02
PROVIDERS: ATTEND Internal Medicine Nephrology

== ENCOUNTER → 2016-12-29 | Day surgery (SDC) | payer BC ==
[~2016-12-29] VITALS: Ht 175.3 cm; Wt 77.2 kg
[~2016-12-29] MED LIST changes: -ATOR-26 PO; -CETI10TA84 PO; -DOCU100C31 PO; +ELQ25 PO; -FAMO20TA9 PO; -FSM70 PO; +LIDOCAINE HCL 1% 20 ML VIAL INJ ONE; +LIDOCAINE HCL 1% 20 ML VIAL ONE; -METO25TA56 PO
[2016-12-29 07:26] VITALS: BP 127/76; PULSE 77; TEMP 36.5; O2SAT 95; Ht 175.3 cm; Wt 77.2 kg
[2016-12-29 08:12] VITALS: BP 127/76; PULSE 77; TEMP 36.5; O2SAT 95
[2016-12-29 08:20] LABS: PARTIAL THROMBOPLASTIN RATIO 1.1; PROTHROMBIN TIME (PATIENT) 11.2 SECONDS (9.0-12.0)
--- NOTE | 2016-12-29 08:34 | History and Physical ---
History & Physical Date of Service Dec 29, 2016. History & Physical CC: Post permcath insertion HPI: Mr. Valentin is an 80-year-old male who went into acute renal failure after an open heart. He has a PermCath in place. As you know, he is being evaluated at this time to see if he has recovery of his kidney function. We did image his veins and he has no usable vein in either upper extremity. At this point, as far as fistula we are looking at placing an upper arm prosthetic. If he needs to have dialysis at this time, I would like to wait and at least reevaluate to see if he needs dialysis again. If he goes back on dialysis, then we will place a fistula in his upper arm of prosthetic material. If he does not require dialysis, then we will hold off on any fistula creation. Patient is stable from a renal function standpoint and is here for removal of his permcath. ALLERGIES: As you know, he has no known allergies. PAST MEDICAL HISTORY: Positive for coronary artery disease and bypass and kidney failure. MEDICATIONS: Were placed on the chart, reviewed, no changes were made. SOCIAL HISTORY: Note that he does not drink, does not smoke. REVIEW OF SYSTEMS: Ten systems were done, and other than his history of present illness, he has a history of seizures in the past and a cough. He also has peripheral vascular disease of lower extremity with ischemia to his toe, was being seen by the [facility] vascular surgeons. PHYSICAL EXAMINATION: The upper extremity shows blood pressure to be 110/62 in the right, 118/64 in the left. He had good radial pulses in both arms, he had good capillary refill. He had no visible veins that were usable for dialysis in either upper extremity. IMPRESSION: End-stage renal disease. PLAN: Patient is admitted for removal of his permath. I have discussed the risks options and benefits of the procedure with the patient. The patient understands the risks options and benefits and agrees to the procedure.
--- NOTE | 2016-12-29 08:34 | Procedure Note ---
Pre-Mod Sedation Assessment General Date of Moderate Sedation: Dec 29, 2016. Vital Signs: Vital Signs Past 12 Hours Date Time Temp Pulse Resp B/P (MAP) Pulse Ox O2 Delivery O2 Flow Rate FiO2 12/29/16 08:12 36.5 77 20 127/76 95 Room Air 12/29/16 07:26 36.5 77 20 127/76 (93) 95 Room Air Pre-Sedation Airway Assessment Oral Cavity: Dentures Short Thick Neck: No Hx of Sleep Apnea: No Smoking Status: Former Smoker Mallampati Classification: Class I ASA Classification: Class III Notes The planned sedation has been discussed with the patient and consent obtained. I have identified the patient, determined the appropriateness of sedation and have assessed the patient immediately prior to the procedure. All medicine(s) and interventions are by my order.
--- NOTE | 2016-12-29 10:21 | [facility] Operative Report ---
Operative Report Operative Date Dec 29, 2016. Pre-Operative Diagnosis Functioning kidneys Post-Operative Diagnosis Same Procedure(s) Performed Removal of permcath Surgeon June Consumer Experience Consultant Surgeon(s) none Estimated Blood Loss 2cc Findings cuff and catheter removed Specimens catheter Anesthesia Local Complication(s) None Disposition Indications This patient's an 81-year-old gentleman who has a PermCath in place. He no longer needs dialysis. Removal of the PermCath was recommended. I have discussed the risks options and benefits of the procedure with the patient. The patient understands the risks options and benefits and agrees to the procedure. Description of Procedure The patient was taken to the angio suite and placed in the supine position. The right side of the neck, chest wall and catheter were prepped and draped in a sterile manner. Local anesthesia was then accomplished. Using sharp and blunt dissection, the cuff of the permcath was freed up from the surrounding fibrous tissue. The permcath and cuff were completely removed. Pressure was then applied and adequate hemostasis was obtained. A sterile dressing was then applied. The patient left the angio suite in good condition and tolerated the procedure well. I attest to the content of the Intraoperative Record and any orders documented therein. Any exceptions are noted below.
--- NOTE | 2016-12-29 10:24 | Discharge Instructions ---
Discharge Instructions Date of Service Dec 29, 2016. Visit Reason for Visit: Acute Renal Failure Discharge Discharge Diagnosis / Problem: Functioning kidneys Discharge Goals Goal(s): Therapeutic intervention Activity Recommendations Activity Limitations: per Instructions/Follow-up section Exercise/Sports Limitations: as tolerated Shower/Bathe: tomorrow Driving or Machine Use: resume 1 day after discharge Anesthesia . Post Anesthesia Instructions: If you have had General Anesthesia or IV Sedation: * Do not drive today. * Resume driving when surgeon permits. * Do not make important decisions or sign legal documents today. * Call surgeon for: 1. Temperature elevations greater than 101 degrees F. 2. Uncontrollable pain. 3. Excessive bleeding. 4. Persistent nausea and vomiting. 5. Medication intolerance (nausea, vomiting or rash). * For nausea and vomiting use only clear liquids such as: tea, soda, bouillon until nausea subsides, then gradually increase diet as tolerated. * If you have any concerns or questions, call your surgeon's office. If physician is unavailable and it is an emergency, call 911 or go to the nearest emergency room. . Instructions / Follow-Up Instructions / Follow-Up Call [phone] with any questions or concerns. SPECIAL CARE INSTRUCTIONS: Medications: * Continue to take your medications as directed. If you have been given a prescription for Plavix, please fill it immediately and take as directed. Incision Care: * Your puncture site may have some bruising and minor swelling for about one week. * You will have a small dressing covering your puncture site. You may remove the dressing after 24 hours and shower. You may let the warm soapy water run over it, but be sure to dry the puncture site well and keep it dry. * DO NOT IMMERSE THE INCISION IN A TUB/POOL/etc. UNTIL HEALED. * Puncture sites should be kept covered with a band-aid until it begins to heal. Restrictions: * Depending on whether you leg or arm was punctured to access the arteries, you will be required to lay flat, hold your arm still, or both, for about 4 hours after the procedure to prevent bleeding. * Limit your activity for the first 48 hours. You may walk and go up and down steps. Avoid excessive bending or movement at the puncture site. Possible Complications: * Excessive Swelling - after blood flow is improved you may notice increased swelling in the lower legs. This is a normal response. This usually depends on the amount of blockages in the leg, how long they have been there prior to your procedure and how much blood flow was restored. Elevating your legs will help to improve this. Please notify our office ([phone] ) if the swelling does not go away after lying in bed overnight. * Infection/Drainage/Bleeding - Drainage or bleeding from the puncture site should be minimal. If you have excessive bleeding or drainage, call our office ([phone]) right away. * Pain - You may experience some mild pain or soreness at your puncture site. If your pain does not improve, please contact our office ([phone]). Call your doctor and seek emergent treatment if you develop: * Temperature above 101 degrees * Any fever or chills * Any redness or purulent drainage from the puncture site * Any new dusky/blue colored toes or feet with coolness or sharp or aching pain. SKIN IRRITATION: * You may experience some redness and/or swelling in the area where radiation was administered. If any skin irritation occurs, please contact your family physician. FOLLOW UP VISIT: Keep any scheduled doctor appointments. Diet Recommendations Recommended Home Diet: resume previous diet Procedures Procedures Performed: Removal of permcath Pending Studies Studies pending at discharge: no Medical Emergencies . Who to Call and When: Medical Emergencies: If at any time you feel your situation is an emergency, please call 911 immediately. . Non-Emergent Contact Non-Emergency issues call your: Surgeon . . "Provider Documentation" section prepared by Ashwin Watkins. .
[2016-12-29 10:30] VITALS: BP 120/70; PULSE 89; TEMP 37; O2SAT 95
[2016-12-29 11:00] VITALS: BP 122/55; PULSE 91; TEMP 37; O2SAT 94
[2016-12-29 11:30] VITALS: BP 117/59; PULSE 91; TEMP 36.9; O2SAT 96
== END | disposition home or self-care (01) ==
LOC: C.ACU 06:55
PROVIDERS: ATTEND Surgery Vascular Surgery
DX: Z46.89 Encounter for fitting and adjustment of other specified devices (principal); I25.10 Atherosclerotic heart disease of native coronary artery without angina pectoris; Z95.1 Presence of aortocoronary bypass graft

== ENCOUNTER → 2016-12-31 | Outpatient (CLI) | payer BC ==
[~2016-12-31] MED LIST changes: -ASPI-232 PO; -ASPI81TA28 PO; -LIDOCAINE HCL 1% 20 ML VIAL INJ ONE; -LIDOCAINE HCL 1% 20 ML VIAL ONE; -WARF1TAB6 PO
--- NOTE | 2016-12-31 14:54 | DIAGNOSTIC IMAGING REPORT ---
RIGHT FIFTH TOE 3 VIEWS HISTORY: Right fifth toe pain. COMPARISON: None. FINDINGS: There is no fracture or dislocation. Mild soft tissue swelling. No cortical destruction to suggest osteomyelitis. No radiopaque foreign bodies. IMPRESSION: No fractures within the right fifth toe. Mild soft tissue swelling. Electronically signed by: Nadeem Barahona M.D. 12/31/2016 2:53 PM Dictated Date/Time: 12/31/2016 2:51 PM
[2016-12-31 15:42] LABS: HEMATOCRIT 33.9 % (42-52); MEAN CELL VOLUME 96.9 fL (80-100); MEAN PLATELET VOLUME 10.1 fL (7.4-10.4); PLATELET COUNT 247 K/uL (130-400); WHITE BLOOD COUNT 8.63 K/uL (4.8-10.8)
[2016-12-31 16:15] LABS: BLOOD UREA NITROGEN 35 mg/dl (7-18); BUN/CREATININE RATIO 17.4 (10-20); CALCIUM 9.6 mg/dl (8.5-10.1); CARBON DIOXIDE 23 mmol/L (21-32); CHLORIDE 108 mmol/L (98-107); GLUCOSE 94 mg/dl (70-99); PHOSPHORUS 3.3 mg/dl (2.5-4.9); POTASSIUM 3.8 mmol/L (3.5-5.1); SODIUM 140 mmol/L (136-145)
== END | disposition home or self-care (01) ==
LOC: C.LAB 14:20
PROVIDERS: ATTEND Emergency Medicine
DX: L97.529 Non-pressure chronic ulcer of other part of left foot with unspecified severity (principal); N17.9 Acute kidney failure, unspecified

== ENCOUNTER → 2017-01-22 | Outpatient (CLI) | payer BC ==
[~2017-01-22] MED LIST changes: +CLC/300 PO
--- NOTE | 2017-01-22 16:17 | DIAGNOSTIC IMAGING REPORT ---
MRI RIGHT FOREFOOT WITHOUT IV CONTRAST CLINICAL HISTORY: Nonhealing wound. COMPARISON STUDY: Radiographs of the right fifth toe dated 12/31/2016. TECHNIQUE: MRI of the right forefoot is performed utilizing various T1 and T2-weighted sequences in the axial, sagittal, and coronal planes. IV contrast was not administered for this examination. The examination is significant compromise by motion artifact. Examination is also suboptimal without current plain film correlate of the entire foot. FINDINGS: There is significant marrow edema identified within the first proximal phalanx. There are serpiginous foci of signal abnormality, with areas of diminished signal on the T1-weighted sequences. Arthritic change is present in the first metatarsal head with subchondral cyst formation. There is also significant marrow edema identified within the second proximal and middle phalanges. The second distal phalanx is not well-visualized and may be eroded. Marrow edema is also seen within the third middle and distal phalanges, as well as in the fourth distal phalanx. There is likely erosion at the tip of the fourth distal phalanx with overlying soft tissue ulceration. Soft tissue windows are also suggested at the tips of the first, second, and third toes. Mild diffuse subcutaneous soft tissue edema is present in the forefoot. No organized fluid collection is seen to suggest abscess. The partially imaged flexor and extensor tendons are grossly intact. There is mild myositis involving the flexor musculature. IMPRESSION: 1. Significantly motion compromised examination. 2. There are multiple foci of indeterminant marrow signal abnormality end edema identified throughout the forefoot as above. These are nonspecific and although some of this could be related to arthritic change, an inflammatory process, or bone infarcts multifocal osteomyelitis is the diagnosis of exclusion. Radiographic correlation is recommended. 3. Mild diffuse subcutaneous soft tissue edema suggests cellulitis. No organized fluid collection is seen to indicate abscess. 4. Ulcerations/wounds are suggested at the tips of the first through fourth toes. Dictated: 01/22/2017 3:57 PM Transcribed: 01/22/2017 4:17 PM Genevieve Electronically signed by: Vishal Valencia M.D. 01/22/2017 4:43 PM Dictated Date/Time: 01/22/2017 3:57 PM
== END | disposition home or self-care (01) ==
LOC: C.MRI 14:42
PROVIDERS: ATTEND Physician Assistant
DX: L97.519 Non-pressure chronic ulcer of other part of right foot with unspecified severity (principal)

== ENCOUNTER → 2017-02-03 | Outpatient (CLI) | payer BC ==
[~2017-02-03] MED LIST changes: -CLC/300 PO
== END | disposition home or self-care (01) ==
LOC: C.RDSM 13:17
PROVIDERS: ATTEND Physical Medicine & Rehabilitation Sports Medicine
DX: I96 Gangrene, not elsewhere classified (principal)

== ENCOUNTER 2017-03-03 09:19 | Day surgery (SDC) | payer BC ==
[2017-02-23 08:53] VITALS: BMI 22.0
--- NOTE | 2017-02-23 09:26 | PAT Medication Instructions ---
Service Date Feb 23, 2017. Current Home Medication List Alendronate/Cholecalciferol (Fosamax+D 70MG/2800 Iu), 1 TABLET PO WK Apixaban (Eliquis), 2.5 MG PO BID Aspirin (Aspirin Ec), 81 MG PO QAM Cholecalciferol (Vitamin D3), 1 TAB PO QAM Donepezil Hydrochloride (Aricept), 10 MG PO QAM Famotidine (Pepcid), 20 MG PO QAM Memantine (Namenda), 10 MG PO BID Metoprolol Tartrate (Lopressor) (Lopressor), 12.5 MG PO BID Multivitamin (Multivitamin), 1 TAB PO QAM Phenytoin Sodium (Dilantin), 1 CAP PO BID Senna (Senokot), 1 TAB PO DAILY PRN for Constipation Medication Instructions For Your Scheduled Surgery - Check with prescribing physician for instructions: Apixaban (Eliquis), 2.5 MG PO BID - Continue as directed: Alendronate/Cholecalciferol (Fosamax+D 70MG/2800 Iu), 1 TABLET PO WK - Hold the following medications the morning of surgery: Senna (Senokot), 1 TAB PO DAILY PRN for Constipation Multivitamin (Multivitamin), 1 TAB PO QAM Famotidine (Pepcid), 20 MG PO QAM Cholecalciferol (Vitamin D3), 1 TAB PO QAM - Take the following medications the morning of surgery with a sip of water: Phenytoin Sodium (Dilantin), 1 CAP PO BID Metoprolol Tartrate (Lopressor) (Lopressor), 12.5 MG PO BID Memantine (Namenda), 10 MG PO BID Donepezil Hydrochloride (Aricept), 10 MG PO QAM Aspirin (Aspirin Ec), 81 MG PO QAM - Take the following medications as scheduled the night before surgery: Senna (Senokot), 1 TAB PO DAILY PRN for Constipation Phenytoin Sodium (Dilantin), 1 CAP PO BID Metoprolol Tartrate (Lopressor) (Lopressor), 12.5 MG PO BID Memantine (Namenda), 10 MG PO BID If you have any questions please call us at [phone] or [phone] or [phone]
--- NOTE | 2017-02-23 09:52 | DIAGNOSTIC IMAGING REPORT ---
CHEST 2 VIEWS ROUTINE CLINICAL HISTORY: PAT preoperative evaluation COMPARISON STUDY: 2016 FINDINGS: Interval development of a left and to a lesser extent right pleural effusion. Lungs otherwise appear clear. Prior median sternotomy and IMPRESSION: Interval development of small left and to lesser extent right basilar pleural effusion. Interval median sternotomy. The above report was generated using voice recognition software. It may contain grammatical, syntax or spelling errors. Electronically signed by: Murtaza Mcnair M.D. 02/23/2017 9:50 AM Dictated Date/Time: 02/23/2017 9:50 AM
[2017-02-23 11:02] LABS: BASO % 0.3 %; BASO ABS # 0.02 K/uL (0-0.2); EOS % 4.7 %; EOS ABS # 0.32 K/uL (0-0.5); HEMATOCRIT 35.7 % (42-52); HEMOGLOBIN 11.6 g/dL (14.0-18.0); IG# 0.02 K/uL (0.00-0.02); LYMPH % 19.3 %; MEAN CELL VOLUME 97.5 fL (80-100); MEAN CORPUSCULAR HEMOGLOBIN 31.7 pg (25-34); MEAN CORPUSCULAR HGB CONC 32.5 g/dl (32-36); MEAN PLATELET VOLUME 9.7 fL (7.4-10.4); MONO % 10.7 %; MONO ABS # 0.72 K/uL (0.11-0.59); NEUT % 64.7 %; NEUT ABS # 4.37 K/uL (1.4-6.5); PLATELET COUNT 224 K/uL (130-400); RED CELL DISTRIBUTION WIDTH CV 15.3 % (11.5-14.5); RED CELL DISTRIBUTION WIDTH SD 54.5 fL (36.4-46.3); WHITE BLOOD COUNT 6.75 K/uL (4.8-10.8)
[2017-02-23 11:11] LABS: INR 1.1 (0.9-1.1); PTT PATIENT 28.5 SECONDS (21.0-31.0)
[2017-02-23 11:47] LABS: CALCIUM 9.1 mg/dl (8.5-10.1); CREATININE 2.23 mg/dl (0.60-1.40); POTASSIUM 4.5 mmol/L (3.5-5.1)
[~2017-03-03] VITALS: Ht 177.8 cm; Wt 69.6 kg
--- NOTE | 2017-03-03 06:15 | History and Physical ---
History & Physical Date of Service Mar 03, 2017. History & Physical CC: Gangrene of right and left great, second and third toes HPI: Mr Valentin is an 81 year old whtite male who underwent coronary artery bypass graft surgery at [facility] back on September [facility] cardiac catheterization on September 24. Patient apparently during that hospitalization developed blackened discoloration of multiple toes on both of his feet. His toes have now demarcated and are in need of amputation. ALLERGIES: he has no known allergies. PAST MEDICAL HISTORY: Positive for coronary artery disease and bypass and kidney failure. MEDICATIONS: Were placed on the chart, reviewed, no changes were made. SOCIAL HISTORY: Note that he does not drink, does not smoke. REVIEW OF SYSTEMS: Ten systems were done, and other than his history of present illness, he has a history of seizures in the past and a cough. He also has peripheral vascular disease of lower extremity with ischemia to his toe, was being seen by the [facility] vascular surgeons. PHYSICAL EXAMINATION: The upper extremity shows blood pressure to be 110/62 in the right, 118/64 in the left. He had good radial pulses in both arms, he had good capillary refill. He had no visible veins that were usable for dialysis in either upper extremity. HEENT are within normal limits. Lungs are clear, Heart has a RRR. Abd is beign. Lower extremities have pulses throughout. There are gangrenous changes of the tips of the great, second, and third toes bilaterally. 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 PLAN: Patient is admitted for amputation of the great, second, and third toes of both feet. I have discussed the risks options and benefits of the procedure with the patient. The patient understands the risks options and benefits and agrees to the procedure.
[~2017-03-03 09:19] MED LIST changes: +ASPI81TA28 PO; +ATROPINE SULFATE 0.1 MG/ML 5ML SYR IV PRN; -CALC0.2510 PO; -CHOL100010 PO; +CLINDAMYCIN 600 MG/54 ML D5W IV SCH; +EpHEDrine SULFATE INJ 50 MG/ML AMP IV PRN; +FAMO20TA11 PO; +FENTANYL CITRATE INJ 50 MCG/1 ML 2 ML VIAL IV PRN; +FSMD/70 PO; +LACTATED RINGER'S 1000ML 1,000 ML IV SCH; -METO-478 PO; +METO25TA56 PO; +ONDANSETRON INJ 2 MG/ML 2 ML VIAL IV PRN; +SENN-61 PO; +SODIUM CHLORIDE 0.9% 1000ML 1,000 ML IV SCH; +VTMD1000 PO
--- NOTE | 2017-03-03 09:20 | History & Physical Bridge Note ---
H&P Re-Evaluation Bridge Note: I have examined the patient, reviewed the History & Physical and in the interval since the performance of the History & Physical I have noted the following changes of clinical significance: No changes noted
[2017-03-03 09:45] VITALS: BP 147/94; PULSE 82; TEMP 36.3; O2SAT 95; Ht 177.8 cm; Wt 69.6 kg
[2017-03-03] MEDS ORDERED: PROPOFOL IV EMULSION 10 MG/ML 20 ML VIAL IV ONE (10:41)
[2017-03-03] MEDS ORDERED: LIDOCAINE HCL 2% 2 ML VIAL (20MG/ML) ONE (10:41)
[2017-03-03] MEDS ORDERED: FENTANYL CITRATE INJ 50 MCG/1 ML 2 ML VIAL ONE ×2 (10:42→12:56)
[2017-03-03] MEDS ORDERED: ONDANSETRON INJ 2 MG/ML 2 ML VIAL ONE (11:22)
--- NOTE | 2017-03-03 11:44 | [facility] Post Operative Brief Note ---
Immediate Operative Summary Operative Date Mar 03, 2017. Pre-Operative Diagnosis Gangrene of the toes of both feet. Post-Operative Diagnosis Same Procedure(s) Performed Amputation Right and Left Great, 2nd and 3rd Toes Surgeon Dr Watkins Bobbin Trucker Surgeon(s) Dione Ochoa PA-C Estimated Blood Loss 10ML Findings gangrene tips of great, 2nd and 3rd toes bilat Specimens A. toes Anesthesia Gen Complication(s) None Disposition Recovery Room / PACU
[2017-03-03] MEDS ORDERED: OXYCODONE/ACETAMINOPHEN 5-325 TAB PO PRN (11:45)
[2017-03-03] MEDS ORDERED: OXYC-57 PO (11:46)
--- NOTE | 2017-03-03 11:48 | Discharge Instructions ---
Discharge Instructions Date of Service Mar 03, 2017. Visit Reason for Visit: Gangrene Of Toes -Bilateral 2ND & 3RD Toes Discharge Discharge Diagnosis / Problem: Gangrene of toes Discharge Goals Goal(s): Therapeutic intervention Activity Recommendations Activity Limitations: per Instructions/Follow-up section Anesthesia . Post Anesthesia Instructions: If you have had General Anesthesia or IV Sedation: * Do not drive today. * Resume driving when surgeon permits. * Do not make important decisions or sign legal documents today. * Call surgeon for: 1. Temperature elevations greater than 101 degrees F. 2. Uncontrollable pain. 3. Excessive bleeding. 4. Persistent nausea and vomiting. 5. Medication intolerance (nausea, vomiting or rash). * For nausea and vomiting use only clear liquids such as: tea, soda, bouillon until nausea subsides, then gradually increase diet as tolerated. * If you have any concerns or questions, call your surgeon's office. If physician is unavailable and it is an emergency, call 911 or go to the nearest emergency room. . Instructions / Follow-Up Instructions / Follow-Up Call [phone] to schedule a follow up appointment if one not already scheduled. ACTIVITY RECOMMENDATIONS: See Above SPECIAL CARE INSTRUCTIONS: Call your doctor if: * Temperature above 101 degrees * Pain not relieved by pain medicine ordered * There is increased drainage or redness from any incision * You have any unanswered questions or concerns. Diet Recommendations Recommended Home Diet: resume previous diet Procedures Procedures Performed: Amputation Right and Left Great, 2nd and 3rd Toes Pending Studies Studies pending at discharge: no Medical Emergencies . Who to Call and When: Medical Emergencies: If at any time you feel your situation is an emergency, please call 911 immediately. . Non-Emergent Contact Non-Emergency issues call your: Surgeon . . "Provider Documentation" section prepared by Ashwin Watkins. .
--- NOTE | 2017-03-03 12:09 | [facility] Operative Report ---
Operative Report Operative Date Mar 03, 2017. Pre-Operative Diagnosis Gangrene of the toes of both feet. Post-Operative Diagnosis Same Procedure(s) Performed Amputation Right and Left Great, 2nd and 3rd Toes Surgeon Dr [facility] Aide Surgeon(s) Dione Ochoa PA-C Estimated Blood Loss 10ML Findings gangrene of tips of toes Specimens A. toes Anesthesia Gen Complication(s) None Disposition Recovery Room / PACU Indications This is an 81-year-old male who had open heart surgery. Postoperatively he developed embolization to the toes of both feet. He now has gangrene of the tips of the first second and third toe on both lower extremities. Amputation of these toes recommended. I have discussed the risks options and benefits of the procedure with the patient. The patient understands the risks options and benefits and agrees to the procedure. Description of Procedure The patient was taken to the operating room placed in the supine position. Both feet were prepped and draped in a sterile manner. [place] incisions were made in the midportion of the first second and third toes both feet. This was carried down to the bone. All toes were transected at the mid phalanx level. Good bleeding was seen. The toes removed. Adequate hemostasis was obtained. Good viable flaps were noted. The wound edges were approximated with 3-0 nylon sutures. Sterile dressings were applied to the wound. The patient left the operating room in good condition and tolerated the procedure well. Dione Ochoa Pac assisted due to lack of resident availability and was necessary for prepping, draping, retraction, wound closure deep layers, subcutaneous tissue, and skin closure and was necessary for assisting with the case. I attest to the content of the Intraoperative Record and any orders documented therein. Any exceptions are noted below.
--- NOTE | 2017-03-03 13:12 | Anesthesiology Progress Note ---
Anesthesia Post Op Note Date & Time Mar 03, 2017 at 13:12 Vital Signs Pain Intensity: 4.0 Vital Signs Past 12 Hours Date Time Temp Pulse Resp B/P (MAP) Pulse Ox O2 Delivery O2 Flow Rate FiO2 03/03/17 12:51 140/68 03/03/17 12:49 64 19 95 03/03/17 12:49 55 19 03/03/17 12:46 129/69 03/03/17 12:44 57 15 94 03/03/17 12:44 55 15 03/03/17 12:41 132/63 03/03/17 12:39 62 15 96 03/03/17 12:39 56 15 03/03/17 12:36 128/74 03/03/17 12:34 53 21 03/03/17 12:34 60 21 99 03/03/17 12:31 132/74 03/03/17 12:29 55 16 03/03/17 12:29 56 16 99 03/03/17 12:26 134/76 03/03/17 12:24 79 21 127/60 94 03/03/17 12:24 112 21 03/03/17 12:24 36.0 61 16 127/60 100 Oxymask 10 03/03/17 09:45 36.3 82 18 147/94 (111) 95 Room Air Notes Mental Status: alert / awake / arousable, participated in evaluation Pt Amnestic to Procedure: Yes Nausea / Vomiting: adequately controlled Pain: adequately controlled Airway Patency, RR, SpO2: stable & adequate BP & HR: stable & adequate Hydration State: stable & adequate Anesthetic Complications: no major complications apparent
[2017-03-03 13:33] VITALS: BP 143/81; PULSE 57; TEMP 36.7; O2SAT 92
[2017-03-03 14:03] VITALS: BP 141/65; PULSE 58; TEMP 36.4; O2SAT 95
[2017-03-03] MEDS ORDERED: OXYCODONE/ACETAMINOPHEN 5-325 TAB ONE (14:10)
== END 2017-03-03 14:25 | disposition home or self-care (01) ==
LOC: C.ACU 09:19
PROVIDERS: ATTEND Surgery Vascular Surgery
DX: I96 Gangrene, not elsewhere classified (principal); M86.172 Other acute osteomyelitis, left ankle and foot; M86.171 Other acute osteomyelitis, right ankle and foot; I99.8 Other disorder of circulatory system; I25.10 Atherosclerotic heart disease of native coronary artery without angina pectoris; I73.9 Peripheral vascular disease, unspecified; Z95.1 Presence of aortocoronary bypass graft

== ENCOUNTER 2017-03-31 08:28 | Day surgery (SDC) | payer BC ==
[2017-03-25 08:54] VITALS: BMI 22.0
--- NOTE | 2017-03-30 16:24 | History and Physical ---
History & Physical Date of Service Mar 30, 2017. History & Physical CC: Gangrene of right 5th toe HPI: Mr Valentin is an 81 year old whtite male who underwent coronary artery bypass graft surgery at [facility] back on September 26 after he was transferred from [facility] for further evaluation following cardiac catheterization on September 24. Patient apparently during that hospitalization developed blackened discoloration of multiple toes on both of his feet. His toes have now demarcated and are in need of amputation. He underwent amputation of the great, 2nd and 3rd toes bilaterally. Now admitted for amputation of right 5th toe. ALLERGIES: he has no known allergies. PAST MEDICAL HISTORY: Positive for coronary artery disease and bypass and kidney failure. MEDICATIONS: Were placed on the chart, reviewed, no changes were made. SOCIAL HISTORY: Note that he does not drink, does not smoke. REVIEW OF SYSTEMS: Ten systems were done, and other than his history of present illness, he has a history of seizures in the past and a cough. He also has peripheral vascular disease of lower extremity with ischemia to his toe, was being seen by the [facility] vascular surgeons. PHYSICAL EXAMINATION: The upper extremity shows blood pressure to be 110/62 in the right, 118/64 in the left. He had good radial pulses in both arms, he had good capillary refill. He had no visible veins that were usable for dialysis in either upper extremity. HEENT are within normal limits. Lungs are clear, Heart has a RRR. Abd is beign. Lower extremities have pulses throughout. There are gangrenous changes of the tips of the great, second, and third toes bilaterally. IMPRESSION: Gangrene of right 5th toet. PLAN: Patient is admitted for amputation of the right 5th toe. I have discussed the risks options and benefits of the procedure with the patient. The patient understands the risks options and benefits and agrees to the procedure.
[~2017-03-31] VITALS: Ht 177.8 cm; Wt 69.6 kg
[~2017-03-31 08:28] MED LIST changes: -ATROPINE SULFATE 0.1 MG/ML 5ML SYR IV PRN; -EpHEDrine SULFATE INJ 50 MG/ML AMP IV PRN; -FENTANYL CITRATE INJ 50 MCG/1 ML 2 ML VIAL IV PRN; -LACTATED RINGER'S 1000ML 1,000 ML IV SCH; -ONDANSETRON INJ 2 MG/ML 2 ML VIAL IV PRN
[2017-03-31] MEDS ORDERED: LIDOCAINE HCL 2% 2 ML VIAL (20MG/ML) ONE (08:43)
[2017-03-31] MEDS ORDERED: FENTANYL CITRATE INJ 50 MCG/1 ML 2 ML VIAL ONE (08:43)
[2017-03-31] MEDS ORDERED: PROPOFOL IV EMULSION 10 MG/ML 20 ML VIAL IV ONE (08:43)
[2017-03-31] MEDS ORDERED: ONDANSETRON INJ 2 MG/ML 2 ML VIAL ONE (08:46)
[2017-03-31 09:15] VITALS: BP 174/75; PULSE 55; TEMP 36.6; O2SAT 97; Ht 177.8 cm; Wt 69.6 kg
[2017-03-31] MEDS ORDERED: HYDROmorphone INJ 0.5 MG/0.5 ML SYR IV PRN (09:30)
[2017-03-31] MEDS ORDERED: EpHEDrine SULFATE INJ 50 MG/ML AMP IV PRN (09:30)
[2017-03-31] MEDS ORDERED: PHENYLEPHRINE 100MCG/ML 5ML SYR IV PRN (09:30)
[2017-03-31] MEDS ORDERED: LABETALOL HCL IV 5 MG/ML 20ML IV PRN (09:30)
[2017-03-31] MEDS ORDERED: ATROPINE SULFATE 0.1 MG/ML 5ML SYR IV PRN (09:30)
[2017-03-31] MEDS ORDERED: FENTANYL CITRATE INJ 50 MCG/1 ML 2 ML VIAL IV PRN (09:30)
[2017-03-31] MEDS ORDERED: ONDANSETRON INJ 2 MG/ML 2 ML VIAL IV PRN (09:30)
[2017-03-31 09:48] LABS: CALCIUM 9.2 mg/dl (8.5-10.1); CREATININE 2.26 mg/dl (0.60-1.40); POTASSIUM 4.2 mmol/L (3.5-5.1)
[2017-03-31] MEDS ORDERED: LIDOCAINE/EPINEPHRINE 1% 20 ML VIAL ONE (13:53)
[2017-03-31] MEDS ORDERED: BUPIVACAINE 0.5 % 5 MG/1 ML MPF 30ML VIAL ONE (13:53)
[2017-03-31] MEDS ORDERED: LIDOCAINE HCL 1% 20 ML VIAL ONE ×2 (14:04→14:27)
[2017-03-31] MEDS ORDERED: BUPIVACAINE/EPINEPHRINE 0.5% MPF 1:200,000 30 ML VIAL ONE (14:04)
--- NOTE | 2017-03-31 14:42 | [facility] Post Operative Brief Note ---
Immediate Operative Summary Operative Date Mar 31, 2017. Pre-Operative Diagnosis Right Fifth toe wound Post-Operative Diagnosis Right Fifth toe wound Procedure(s) Performed Right Fifth Toe Amputation Surgeon Dr Watkins Therapeutic Riding Instructor Surgeon(s) Natasha Bishop - Fellow Estimated Blood Loss 5cc Findings Consistent with Post-Op Diagnosis Specimens As Per Surgeon A. Right Fifth Toe Drains None Anesthesia Type MAC Complication(s) none Disposition Accompanied Pt To Recover: no Disposition:
[2017-03-31] MEDS ORDERED: OXYC-57 PO (14:57)
--- NOTE | 2017-03-31 14:58 | Discharge Instructions ---
Discharge Instructions Date of Service Mar 31, 2017. Visit Reason for Visit: Right 5TH Toe Wound Discharge Discharge Diagnosis / Problem: Open wound right 5th toe Discharge Goals Goal(s): Therapeutic intervention Activity Recommendations Activity Limitations: per Instructions/Follow-up section Anesthesia . Post Anesthesia Instructions: If you have had General Anesthesia or IV Sedation: * Do not drive today. * Resume driving when surgeon permits. * Do not make important decisions or sign legal documents today. * Call surgeon for: 1. Temperature elevations greater than 101 degrees F. 2. Uncontrollable pain. 3. Excessive bleeding. 4. Persistent nausea and vomiting. 5. Medication intolerance (nausea, vomiting or rash). * For nausea and vomiting use only clear liquids such as: tea, soda, bouillon until nausea subsides, then gradually increase diet as tolerated. * If you have any concerns or questions, call your surgeon's office. If physician is unavailable and it is an emergency, call 911 or go to the nearest emergency room. . Instructions / Follow-Up Instructions / Follow-Up Call [phone] to schedule a follow up appointment if one not already scheduled. ACTIVITY RECOMMENDATIONS: See Above SPECIAL CARE INSTRUCTIONS: Call your doctor if: * Temperature above 101 degrees * Pain not relieved by pain medicine ordered * There is increased drainage or redness from any incision * You have any unanswered questions or concerns. Diet Recommendations Recommended Home Diet: resume previous diet Procedures Procedures Performed: Right Fifth Toe Amputation Pending Studies Studies pending at discharge: no Medical Emergencies . Who to Call and When: Medical Emergencies: If at any time you feel your situation is an emergency, please call 911 immediately. . Non-Emergent Contact Non-Emergency issues call your: Surgeon . . "Provider Documentation" section prepared by Ashwin Watkins. .
[2017-03-31 15:00] VITALS: BP 121/68; PULSE 58; TEMP 36.4; O2SAT 96
--- NOTE | 2017-03-31 15:18 | Anesthesiology Progress Note ---
Anesthesia Post Op Note Date & Time Mar 31, 2017 at 15:17 Vital Signs Pain Intensity: 0 Vital Signs Past 12 Hours Date Time Temp Pulse Resp B/P (MAP) Pulse Ox O2 Delivery O2 Flow Rate FiO2 03/31/17 09:15 36.6 55 20 174/75 (108) 97 Room Air Notes Mental Status: alert / awake / arousable, participated in evaluation Pt Amnestic to Procedure: Yes Nausea / Vomiting: adequately controlled Pain: adequately controlled Airway Patency, RR, SpO2: stable & adequate BP & HR: stable & adequate Hydration State: stable & adequate Anesthetic Complications: no major complications apparent
[2017-03-31 15:25] VITALS: BP 124/58; PULSE 61; TEMP 36.6; O2SAT 96
--- NOTE | 2017-03-31 16:10 | OPERATIVE REPORT ---
DATE OF OPERATION: 03/31/2017 PREOPERATIVE DIAGNOSIS: Right fifth toe wound. POSTOPERATIVE DIAGNOSIS: Right fifth toe wound. PROCEDURES PERFORMED: Right fifth toe digital block, right fifth toe amputation. SURGEON: Dr. Ashwin Watkins. IMAGING ACCOUNT MANAGER: Dr. Natasha Bishop. ESTIMATED BLOOD LOSS: 5 mL. SPECIMEN: Right fifth toe. ANESTHESIA: Monitored anesthesia care plus right fifth toe block. COMPLICATIONS: None. INDICATIONS: Mr. Davian Valentin is an 81-year-old gentleman with history of coronary artery disease and kidney failure. He underwent a coronary artery bypass grafting at [facility] on September 26. Following his open heart surgery, he developed blackened discoloration of multiple toes of both feet. This required partial amputations of multiple toes previously. He presented to the vascular surgery clinic with a wound over the distal aspect of the right fifth toe with exposed bone and drainage. For this reason, he was recommended to undergo a partial amputation of the right fifth toe. Risks, benefits and alternatives were discussed with the patient and he consented to the procedure. DESCRIPTION OF PROCEDURE: The patient was taken to the operating room and placed in the supine position. Sedation was administered by our anesthesia colleagues. The right foot was prepped and draped in the usual sterile fashion. A safety timeout was performed and the patient, procedure, and sidedness were correctly identified. A 1% lidocaine was used to perform a digital block in between of the right fifth toe. A 15 blade scalpel was then used to incise the skin circumferentially around the right fifth toe, approximately 1 cm distal to the metatarsophalangeal joint. This was extended down to bone using a 15 blade scalpel. Specimen was removed. Rongeurs were used to debride back the cartilaginous portion of the bone. The wound was irrigated with saline. Hemostasis was achieved with Bovie electrocautery. The wound was closed with 4-0 nylon suture. A total of 5 sutures were placed. Xeroform and sterile dressing were applied. The patient tolerated the procedure well and there were no immediate complications. Dr. Ashwin Watkins was present for the entire procedure. I attest to the content of the Intraoperative Record and any orders documented therein. Any exception s are noted below.
== END 2017-03-31 15:43 | disposition home or self-care (01) ==
LOC: C.ACU 08:28
PROVIDERS: ATTEND Surgery Vascular Surgery
DX: I96 Gangrene, not elsewhere classified (principal); M86.171 Other acute osteomyelitis, right ankle and foot; I73.9 Peripheral vascular disease, unspecified; I25.2 Old myocardial infarction; Z95.1 Presence of aortocoronary bypass graft; I48.91 Unspecified atrial fibrillation; I25.10 Atherosclerotic heart disease of native coronary artery without angina pectoris; Z88.0 Allergy status to penicillin; D68.51 Activated protein C resistance; Z89.421 Acquired absence of other right toe(s); Z89.422 Acquired absence of other left toe(s); Z89.411 Acquired absence of right great toe; Z89.412 Acquired absence of left great toe

== ENCOUNTER → 2017-04-04 | Outpatient (CLI) | payer BC ==
[~2017-04-04] MED LIST changes: -CLINDAMYCIN 600 MG/54 ML D5W IV SCH; +OXYC-57 PO; -SODIUM CHLORIDE 0.9% 1000ML 1,000 ML IV SCH
[2017-04-04 11:08] LABS: HEMATOCRIT 37.9 % (42-52); HEMOGLOBIN 12.8 g/dL (14.0-18.0); MEAN CELL VOLUME 95.7 fL (80-100); MEAN CORPUSCULAR HEMOGLOBIN 32.3 pg (25-34); MEAN CORPUSCULAR HGB CONC 33.8 g/dl (32-36); MEAN PLATELET VOLUME 9.7 fL (7.4-10.4); PLATELET COUNT 204 K/uL (130-400); RED CELL DISTRIBUTION WIDTH CV 14.1 % (11.5-14.5); RED CELL DISTRIBUTION WIDTH SD 49.5 fL (36.4-46.3); WHITE BLOOD COUNT 7.37 K/uL (4.8-10.8)
[2017-04-04 11:36] LABS: ALBUMIN 3.5 gm/dl (3.4-5.0); BLOOD UREA NITROGEN 27 mg/dl (7-18); CALCIUM 8.7 mg/dl (8.5-10.1); CARBON DIOXIDE 26 mmol/L (21-32); CREATININE 2.03 mg/dl (0.60-1.40); GLUCOSE 76 mg/dl (70-99); SODIUM 140 mmol/L (136-145)
[2017-04-04 11:41] LABS: PHOSPHORUS 2.9 mg/dl (2.5-4.9); TRANSFERRIN 249 mg/dl (200-360)
== END | disposition home or self-care (01) ==
LOC: C.LAB 10:45
PROVIDERS: ATTEND Internal Medicine Nephrology
DX: D64.9 Anemia, unspecified (principal); I12.9 Hypertensive chronic kidney disease with stage 1 through stage 4 chronic kidney disease, or unspecified chronic kidney disease

== ENCOUNTER 2020-05-04 11:04 | Observation (INO) ==
[2020-05-04 12:08] LABS: Basophils # (auto) 0.01 K/uL (0-0.2); Basophils % (auto) 0.1 %; Eosinophils # (auto) 0.08 K/uL (0-0.5); Eosinophils % (auto) 0.9 %; Hemoglobin 14.3 g/dL (14.0-18.0); Immature Granulocytes # (auto) 0.01 K/uL (0.00-0.02); Immature Granulocytes % (auto) 0.1 %; Lymphocytes # (auto) 0.55 K/uL (1.2-3.4); Lymphocytes % (auto) 6.5 %; Mean Corpuscular Hemoglobin 33.4 pg (25-34); Mean Corpuscular Volume 98.1 fL (80-100); Mean Platelet Volume 9.3 fL (7.4-10.4); Monocytes % (auto) 5.9 %; Neutrophils # (auto) 7.36 K/uL (1.4-6.5); Neutrophils % (auto) 86.5 %; Platelet Count 209 K/uL (130-400); RDW Standard Deviation 49.8 fL (36.4-46.3); Red Blood Count 4.28 M/uL (4.7-6.1); White Blood Count 8.51 K/uL (4.8-10.8)
[2020-05-04] MEDS ORDERED: SODIUM CHLORIDE 0.9% 500 ML IV ONE (12:08)
[2020-05-04 12:41] LABS: Albumin Globulin Ratio 1.1 (0.9-2); Albumin Level 4.2 gm/dl (3.4-5.0); BUN Creatinine Ratio 13.2 (10-20); Bilirubin,Total 0.7 mg/dl (0.2-1); Calcium 9.5 mg/dl (8.5-10.1); Creatinine Clr Calc Pharmacy 21.6 ml/min; Est GFR (African American) 33.8; Est GFR (Non-African American) 29.2; Globulin 3.7 gm/dl (2.5-4.0); Potassium 4.1 mmol/L (3.5-5.1); Total Protein 7.9 gm/dl (6.4-8.2)
[2020-05-04 12:48] LABS: Thyroid Stimulating Hormone 2.83 uIu/ml (0.300-4.500); Troponin I 0.031 ng/ml (0-0.045)
[2020-05-04 13:13] LABS: Bilirubin Direct 0.2 mg/dl (0-0.2); Magnesium 2.2 mg/dl (1.8-2.4); Phosphorus 2.4 mg/dl (2.5-4.9); Thyroid Stimulating Hormone 2.99 uIu/ml (0.300-4.500)
--- NOTE | 2020-05-04 13:16 | XRay Report ---
XR chest 1V portable CLINICAL HISTORY: weakness COMPARISON STUDY: 03/16/2018 FINDINGS: The heart is enlarged. There are postsurgical changes of midline sternotomy. There is diffu se elevation of interstitium likely secondary to pulmonary vascular congestion. Interstitial infectio us/inflammatory process could appear similar. Small pleural effusions are suspected[ IMPRESSION: Cardiomegaly, small pleural effusions, and elevation of interstitium. The findings likely represent congestive failure/fluid overload. A diffuse interstitial infectious/inflammatory process could appear similar but is felt to be statistically less likely. Clinical and radiographic follow-up is recommended ACT 112: Negative or not required by law. Electronically signed by: Sharif Scott M.D. 05/04/2020 1:15 PM
--- NOTE | 2020-05-04 13:46 | Emergency Department Note ---
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 Arm] Pulse Oximetry Oxygen Delivery Method Sepsis Recent Fever Within 48 Hours Sepsis New/Unexplained Change in Mental Status Sepsis Action Taken by Nursing Laboratory Data Attestation: I reviewed the patient's lab results. Result diagrams: 05/04/20 11:49 05/04/20 11:49 Lab Results 05/04/20 05/04/20 05/04/20 Range/Units 11:49 11:49 11:49 WBC 8.51 (4.8-10.8) K/uL RBC 4.28 L (4.7-6.1) M/uL Hgb 14.3 (14.0-18.0) g/dL Hct 42.0 (42-52) % MCV 98.1 (80-100) fL MCH 33.4 (25-34) pg MCHC 34.0 (32-36) g/dL RDW Std Deviation 49.8 H (36.4-46.3) fL RDW Coeff of Viola 14.0 (11.5-14.5) % Plt Count 209 (130-400) K/uL MPV 9.3 (7.4-10.4) fL Immature Gran % (Auto) 0.1 % Neut % (Auto) 86.5 % Lymph % (Auto) 6.5 % [place] % (Auto) 5.9 % Eos % (Auto) 0.9 % Baso % (Auto) 0.1 % Neut # (Auto) 7.36 H (1.4-6.5) K/uL Lymph # (Auto) 0.55 L (1.2-3.4) K/uL [place] # (Auto) 0.50 (0.11-0.59) K/uL Eos # (Auto) 0.08 (0-0.5) K/uL Baso # (Auto) 0.01 (0-0.2) K/uL Immature Gran # (Auto) 0.01 (0.00-0.02) K/uL Sodium 142 (136-145) mmol/L Potassium 4.1 (3.5-5.1) mmol/L Chloride 111 H (98-107) mmol/L Carbon Dioxide 22 (21-32) mmol/L Anion Gap 9.0 (3-11) BUN 27 H (7-18) mg/dl Creatinine 2.01 H (0.6-1.4) mg/dl Est Cr Clr Drug Dosing 21.6 ml/min Est GFR ( Amer) 33.8 Est GFR (Non-Af Amer) 29.2 BUN/Creatinine Ratio 13.2 (10-20) Glucose 120 H (70-99) mg/dl Calcium 9.5 (8.5-10.1) mg/dl Phosphorus 2.4 L (2.5-4.9) mg/dl Magnesium 2.2 (1.8-2.4) mg/dl Total Bilirubin 0.7 (0.2-1) mg/dl Direct Bilirubin 0.2 (0-0.2) mg/dl AST 17 (15-37) U/L ALT 24 (12-78) U/L Alkaline Phosphatase 137 H (45-117) U/L Troponin I 0.031 (0-0.045) ng/ml Total Protein 7.9 (6.4-8.2) gm/dl Albumin 4.2 (3.4-5.0) gm/dl Globulin 3.7 (2.5-4.0) gm/dl Albumin/Globulin Ratio 1.1 (0.9-2) Lipase 146 (73-393) U/L TSH 2.830 2.990 (0.300-4.500) uIu/ml Urine Color Urine Appearance (Clear) Urine pH (4.5-7.5) Ur Specific [place] (1.000-1.030) Urine Protein (Negative) Urine Glucose (UA) (Negative) Urine Ketones (Negative) Urine Blood (Negative) Urine Nitrite (Negative) Urine Bilirubin (Negative) Urine Urobilinogen (Negative) Ur Leukocyte Esterase (Negative) Urine WBC (Auto) (0-5) /hpf Urine RBC (Auto) (0-4) /hpf U Hyaline Cast (Auto) (0-5) /lpf U Epithel Cells (Auto) (0-5) /lpf Urine Bacteria (Auto) (Negative) Phenytoin (10-20) mcg/ml COVID-19 Eval Order SARS-CoV-2, RNA, NAAT (NEGATIVE) 05/04/20 05/04/20 05/04/20 Range/Units 11:49 12:46 12:46 WBC (4.8-10.8) K/uL RBC (4.7-6.1) M/uL Hgb (14.0-18.0) g/dL Hct (42-52) % MCV (80-100) fL MCH (25-34) pg MCHC (32-36) g/dL RDW Std Deviation (36.4-46.3) fL RDW Coeff of Viola (11.5-14.5) % Plt Count (130-400) K/uL MPV (7.4-10.4) fL Immature Gran % (Auto) % Neut % (Auto) % Lymph % (Auto) % [place] % (Auto) % Eos % (Auto) % Baso % (Auto) % Neut # (Auto) (1.4-6.5) K/uL Lymph # (Auto) (1.2-3.4) K/uL [place] # (Auto) (0.11-0.59) K/uL Eos # (Auto) (0-0.5) K/uL Baso # (Auto) (0-0.2) K/uL Immature Gran # (Auto) (0.00-0.02) K/uL Sodium (136-145) mmol/L Potassium (3.5-5.1) mmol/L Chloride (98-107) mmol/L Carbon Dioxide (21-32) mmol/L Anion Gap (3-11) BUN (7-18) mg/dl Creatinine (0.6-1.4) mg/dl Est Cr Clr Drug Dosing ml/min Est GFR ( Amer) Est GFR (Non-Af Amer) BUN/Creatinine Ratio (10-20) Glucose (70-99) mg/dl Calcium (8.5-10.1) mg/dl Phosphorus (2.5-4.9) mg/dl Magnesium (1.8-2.4) mg/dl Total Bilirubin (0.2-1) mg/dl Direct Bilirubin (0-0.2) mg/dl AST (15-37) U/L ALT (12-78) U/L Alkaline Phosphatase (45-117) U/L Troponin I (0-0.045) ng/ml Total Protein (6.4-8.2) gm/dl Albumin (3.4-5.0) gm/dl Globulin (2.5-4.0) gm/dl Albumin/Globulin Ratio (0.9-2) Lipase (73-393) U/L TSH (0.300-4.500) uIu/ml Urine Color Urine Appearance (Clear) Urine pH (4.5-7.5) Ur Specific [place] (1.000-1.030) Urine Protein (Negative) Urine Glucose (UA) (Negative) Urine Ketones (Negative) Urine Blood (Negative) Urine Nitrite (Negative) Urine Bilirubin (Negative) Urine Urobilinogen (Negative) Ur Leukocyte Esterase (Negative) Urine WBC (Auto) (0-5) /hpf Urine RBC (Auto) (0-4) /hpf U Hyaline Cast (Auto) (0-5) /lpf U Epithel Cells (Auto) (0-5) /lpf Urine Bacteria (Auto) (Negative) Phenytoin 0.6 L (10-20) mcg/ml COVID-19 Eval [facility] SARS-[facility]-2, RNA, NAAT NEGATIVE (NEGATIVE) 05/04/20 Range/Units 14:00 WBC (4.8-10.8) K/uL RBC (4.7-6.1) M/uL Hgb (14.0-18.0) g/dL Hct (42-52) % MCV (80-100) fL MCH (25-34) pg MCHC (32-36) g/dL RDW Std Deviation (36.4-46.3) fL RDW Coeff of Viola (11.5-14.5) % Plt Count (130-400) K/uL MPV (7.4-10.4) fL Immature Gran % (Auto) % Neut % (Auto) % Lymph % (Auto) % [place] % (Auto) % Eos % (Auto) % Baso % (Auto) % Neut # (Auto) (1.4-6.5) K/uL Lymph # (Auto) (1.2-3.4) K/uL [place] # (Auto) (0.11-0.59) K/uL Eos # (Auto) (0-0.5) K/uL Baso # (Auto) (0-0.2) K/uL Immature Gran # (Auto) (0.00-0.02) K/uL Sodium (136-145) mmol/L Potassium (3.5-5.1) mmol/L Chloride (98-107) mmol/L Carbon Dioxide (21-32) mmol/L Anion Gap (3-11) BUN (7-18) mg/dl Creatinine (0.6-1.4) mg/dl Est Cr Clr Drug Dosing ml/min Est GFR ( Amer) Est GFR (Non-Af Amer) BUN/Creatinine Ratio (10-20) Glucose (70-99) mg/dl Calcium (8.5-10.1) mg/dl Phosphorus (2.5-4.9) mg/dl Magnesium (1.8-2.4) mg/dl Total Bilirubin (0.2-1) mg/dl Direct Bilirubin (0-0.2) mg/dl AST (15-37) U/L ALT (12-78) U/L Alkaline Phosphatase (45-117) U/L Troponin I (0-0.045) ng/ml Total Protein (6.4-8.2) gm/dl Albumin (3.4-5.0) gm/dl Globulin (2.5-4.0) gm/dl Albumin/Globulin Ratio (0.9-2) Lipase (73-393) U/L TSH (0.300-4.500) uIu/ml Urine Color Yellow Urine Appearance Clear (Clear) Urine pH 6.5 (4.5-7.5) Ur Specific [place] 1.016 (1.000-1.030) Urine Protein 1+ H (Negative) Urine Glucose (UA) Negative (Negative) Urine Ketones 1+ H (Negative) Urine Blood Trace H (Negative) Urine Nitrite Positive A (Negative) Urine Bilirubin Negative (Negative) Urine Urobilinogen Negative (Negative) Ur Leukocyte Esterase 1+ H (Negative) Urine WBC (Auto) 10-30 H (0-5) /hpf Urine RBC (Auto) 0-4 (0-4) /hpf U Hyaline Cast (Auto) 1-5 (0-5) /lpf U Epithel Cells (Auto) 10-20 H (0-5) /lpf Urine Bacteria (Auto) 4+ H (Negative) Phenytoin (10-20) mcg/ml COVID-19 Eval Order SARS-CoV-2, RNA, NAAT (NEGATIVE) Administered Medications Discontinued Medications Sodium Chloride (Nss) 500 mls @ 999 mls/hr IV .Q31M ONE Stop: 05/04/20 12:38 Last Infusion: 05/04/20 13:15 Dose: 0 mls/hr Documented by: [id number] Admin: 05/04/20 12:41 Dose: 999 mls/hr Documented by: [id number] Discharge Plan Visit Data Chief Complaint: Vertigo Stated Complaint: DIZZY/THROWING UP ED Provider: Albin Baker Discharge Problem: CVA (cerebral vascular accident), Atrial fibrillation, Vertigo, Nausea and vomiting, On apixaban therapy Patient Disposition: Admitted As Inpatient Discharge Instructions Interventions: ED Discharge Assessment Last Done: 05/04/20 19:28 Discharge Problem: CVA (cerebral vascular accident) Qualifiers: CVA mechanism: unspecified Qualified Code(s): I63.9 - Cerebral infarction, unspecified Atrial fibrillation Qualifiers: Atrial fibrillation type: unspecified Qualified Code(s): I48.91 - Unspecified atrial fibrillation Nausea and vomiting Qualifiers: Vomiting type: unspecified Vomiting Intractability: unspecified Qualified Code(s): R11.2 - Nausea with vomiting, unspecified
--- NOTE | 2020-05-04 14:00 | CT Scan Report ---
CT head/brain wo con CLINICAL HISTORY: Headache, dizziness, nausea, vomiting. COMPARISON STUDY: September 19, 2014 TECHNIQUE: Axial CT of the brain is performed from the vertex to the skull base. IV contrast was not administered for this examination. A dose lowering technique was utilized adhering to the principles of ALARA. CT DOSE: 537.48 mGy.cm FINDINGS: No intra or extra-axial mass lesions are visualized. There is no CT evidence of acute cortical infarc tion. There is no evidence of midline shift. There is no acute hemorrhage. No calvarial fractures ar e visualized. There are patchy white matter hypodensities likely on a small vessel basis. There is a right cerebell ar lacunar infarct which was not present on the preceding study. There is a right caudate lacunar inf arct. There is no evidence of pathologic ventricular dilatation. There is chronic right mastoid sclerosis. There are postsurgical changes of a partial mastoidectomy. There is partial opacification right middle ear cavity. IMPRESSION: 1. No acute intracranial findings 2. Interval development of lacunar infarct within the right caudate and right cerebellar hemisphere 3. Postsurgical changes involving the right mastoid. Soft tissue within the right middle ear cavity. ACT 112: Negative or not required by law. Electronically signed by: Sharif Scott M.D. 05/04/2020 1:58 PM
[2020-05-04 14:18] LABS: Appearance Urine Clear (Clear); Bacteria Urine Automated 4+ (Negative); Bilirubin Urine Negative (Negative); Blood Urine Trace (Negative); Color Urine Yellow; Glucose Urine UA Negative (Negative); Ketones Urine 1+ (Negative); Leukocyte Esterase Urine 1+ (Negative); Nitrite Urine Positive (Negative); Protein Urine 1+ (Negative); RBC Urine Automated 0-4 /hpf (0-4); Specific Gravity Urine 1.016 (1.000-1.030); Urobilinogen Urine Negative (Negative); pH Urine 6.5 (4.5-7.5)
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
[2020-05-04] MEDS ORDERED: POLYETHYLENE (MIRALAX) 17 GM PACK PO PRN (20:12)
[2020-05-04] MEDS ORDERED: MAGNESIUM HYDROXIDE SUSP 30 ML UDC PO PRN (20:12)
[2020-05-04] MEDS ORDERED: ONDANSETRON INJ 2 MG/ML 2 ML VIAL IV PRN (20:12)
[2020-05-04] MEDS ORDERED: ACETAMINOPHEN 500 MG TAB PO PRN (20:35)
[2020-05-04] MEDS ORDERED: MULTIVITAMIN TAB PO SCH (21:00)
[2020-05-04] MEDS ORDERED: METOPROLOL TARTRATE 25 MG TAB PO STA (21:09)
[2020-05-04] MEDS: APIXABAN 2.5 MG TAB PO SCH (21:26)
[2020-05-04] MEDS: MEMANTINE HCL 10 MG TAB PO SCH (21:26)
[2020-05-04] MEDS: MAGNESIUM SULFATE / D5W 1 GM/100 ML BAG IV SCH (21:26)
[2020-05-05] MEDS: MAGNESIUM SULFATE / D5W 1 GM/100 ML BAG IV SCH (00:51)
--- NOTE | 2020-05-05 07:05 | Electrocardiogram Report ---
Test Reason : Blood Pressure : / mmHG Vent. Rate : 067 BPM Atrial Rate : 340 BPM P-R Int : 000 ms QRS Dur : 138 ms QT Int : 442 ms P-R-T Axes : 000 061 -63 degrees QTc Int : 467 ms Atrial fibrillation Right bundle branch block Possible Inferior infarct (cited on or before 06-MAR-2018) Abnormal ECG When compared with ECG of 16-Mar-2018 09:21, No significant change Confirmed by Guanako Sanchez ([id number]) on 05/05/2020 7:04:53 AM Referred By: REFERRED SELF Confirmed By:Guanako Sanchez
--- NOTE | 2020-05-05 08:28 | Ultrasound Report ---
BILATERAL CAROTID DOPPLER STUDY HISTORY: Right-sided stroke. COMPARISON: None. TECHNIQUE: Real-time, grayscale, and color Doppler sonography of the carotid arteries was performed. Imaging reviewed in the transverse and longitudinal planes. All measurements were calculated based on NASCET criteria. FINDINGS: Antegrade flow is seen in the bilateral vertebral arteries. The brachial pressures are hemodynamically similar. Mild calcified plaque seen within the bilateral carotid bifurcations. The peak systolic velocity within the right ICA is 82 cm/s. The right systolic ratio is 1.3. The peak systolic velocity within the left ICA is 81 cm/s. The left systolic ratio is 1.1. IMPRESSION: No hemodynamically significant stenosis seen within the carotid arteries. ACT 112: Negative or not required by law. Electronically signed by: Nadeem Barahona M.D. 05/05/2020 8:27 AM
[2020-05-05] MEDS ORDERED: ROSUVASTATIN CALCIUM 5 MG TAB PO SCH (09:00)
[2020-05-05] MEDS ORDERED: METOPROLOL SUCC 25MG EXT REL TAB PO SCH (09:00)
[2020-05-05] MEDS ORDERED: ASPIRIN 81 MG ECTAB PO SCH (09:00)
[2020-05-05] MEDS ORDERED: FAMOTIDINE 20 MG TAB PO SCH (09:00)
[2020-05-05] MEDS ORDERED: CHOLECALCIFEROL 1,000 UNITS 25 MCG TAB PO SCH (09:00)
[2020-05-05] MEDS ORDERED: DONEPEZIL HCL 10 MG TAB PO SCH (09:00)
[2020-05-05] MEDS: APIXABAN 2.5 MG TAB PO SCH (09:09)
[2020-05-05] MEDS: MEMANTINE HCL 10 MG TAB PO SCH (09:09)
[2020-05-05 09:26] LABS: Chol HDL Ratio 2; Cholesterol 109 mg/dl (0-200); HDL Cholesterol 70 mg/dl; LDL Cholesterol Calculated 26 mg/dl; Triglycerides 67 mg/dl (0-150); VLDL Cholesterol 13 mg/dl
[2020-05-05 10:34] LABS: Estimated Average Glucose 126 mg/dl
--- NOTE | 2020-05-05 10:35 | Magnetic Resonance Report ---
Brain MRI WITHOUT CONTRAST HISTORY: CVA age indeterminate, headache TECHNIQUE: Multiplanar multisequence MRI of the brain was performed without the use of contrast. COMPARISON STUDY: Head CT 05/04/2020. FINDINGS: No areas of restricted diffusion to suggest acute infarction. The midline structures are in tact. Small right mastoid effusion is again noted. The paranasal sinuses are clear. The major vascula r flow-voids at the skull base are well-maintained. The ventricles and sulci demonstrate moderate age -related involutional changes. There is no mass, hematoma, midline shift. Old lacunar infarcts are no june within the dejah and bilateral cerebellar hemispheres. A few scattered foci of T2 hyperintensity s een within the periventricular white matter are noted. These are nonspecific but favor mild microvasc ular ischemic changes. IMPRESSION: 1. No acute intracranial abnormality. Specifically, no evidence for an acute infarct. 2. Atrophy and microvascular ischemic changes are noted. ACT 112: Negative or not required by law. Electronically signed by: Nadeem Barahona M.D. 05/05/2020 10:34 AM
--- NOTE | 2020-05-05 15:29 | Discharge Summary ---
Date of Service May 05, 2020 Principal Diagnosis Tension headache Discharge Exam General he is awake and alert pleasant no distress. HEENT normocephalic atraumatic mucous membranes moist. Breathing unlabored no accessory muscle use good effort. Skin shows no rashes no pallor or icterus. No overtly notable focal neuro deficits. Neuro exam unchanged from yesterday Discharge Data Allergies Allergy/AdvReac Type Severity Reaction Status Date / Time atorvastatin Allergy Unknown Unknown Verified 05/04/20 12:56 heparin Allergy Unknown ? Heparin Verified 05/04/20 12:56 Induced Thrombocytopenia versus DIC Penicillins Allergy Unknown RASH AND Verified 05/04/20 12:56 ITCHING simvastatin Allergy Unknown Unknown Verified 05/04/20 12:56 ciprofloxacin [From Cipro] Allergy Verified 05/04/20 12:56 doxycycline Allergy Verified 05/04/20 12:56 oxycodone Allergy Verified 05/04/20 12:56 Bhuxogh-Mcz-Muj Reductase AdvReac Unknown ?SEIZURES Verified 05/04/20 12:56 Inhibitor Consultations 05/04/20 16:30 ED Decision to Admit Stat Ordered Studies 05/04/20 12:08 CT head/brain wo con Stat 05/04/20 20:12 MR brain wo con Routine US carotid doppler BI Routine Hospital Course (1) Headache: Tension headachelikely brought on by dehydration from just baseline not drinking enough fluids. I suspected his stroke was old and has nothing to do with his presenting issue with the headaches. He is stable for home. Advised hydration, moist heat should the headache return, and were this to become an ongoing problem, consideration for OMT (2) CVA (cerebral vascular accident): Essentially age-indeterminatesometime between 2014 and now. Does not relate to his presenting problems, but rather was an incidental finding on CT head done in his ER course. He certainly carries many risks for vascular disease, so an incidental finding of a stroke is no surprise, as far as modifying risk factors: -His small vessel disease risks appear to be adequately controlledhis LDL is so suppressed that with his age and comorbidities I would hesitate to raise his rosuvastatin to moderate intensity for fear of increasing risk of intracranial bleed, he is not diabetic (A1c of 6) and while his blood pressure initially was quite high, I suspect this was more stress response as it quickly normalized (advised him to check blood pressure in the ambulatory setting a few times a week). Further, while consideration was given to switching his aspirin over to Plavix, given that he is also on apixaban, his lipids are quite low, and his risk of having a bleed is not small, I did not feel it prudent to make a switch from aspirin to Plavix without further consideration from his medical team that knows his situation far better -Carotids did not show significant stenoses to be a cause of large vessel thromboembolic problems -He has known atrial fibrillation, so a central embolic source was not actively sought at this admission, he is already on apixaban, and notes reliably taking it without any missed doses of regularity (3) CAD (coronary artery disease), kiana coronary artery: Continue home meds (4) CKD (chronic kidney disease) stage 4, GFR 15-29 ml/min: Renal function at his baseline, follow as outpatient (5) Anemia: Related to CKD, follow as outpatient (6) Afib: See above, rate is controlled he is anticoagulated, and I do not see where further work-up as it relates to A. fib/cardioembolic would be of benefit to himgiven that he has known A. fib and is already anticoagulated (7) Dementia: Home meds (8) DVT prophylaxis: Eliquis (9) Discharge planning issues: Stable for home, outpatient follow-up Total Time Total Time Spent Total Time Spent (In Minutes): Less than 30 Discharge Plan Discharge Items Patient Disposition: Home - Self-Care Reason For Visit: HEADACHE Discharge Diagnosis: Tension headache, old stroke that did not relate (see below) Activity: Resume your previous activity Non-emergency contact: Primary Care Provider Call non-emergency contact if: you have any medication questions and your symptoms worsen Follow-up/Referrals: Marcial Em III, CRNP [Primary Care Provider] - Diet: Regular Addtl Attending Provider Instructions: Headache -As we discussed yesterday the headache does not seem to relate to the stroke at all. This is further confirmed by the fact that the MRI does not show any acute findings of stroke. As we discussed, typically a CT scan requires a stroke to at least be 3 to 4 days old before and even shows up, and given that the stroke looks old on both CT and MRI, it has nothing to do with the headache (see below about stroke otherwise). -Your headache appears to have been a tension headache. These are fairly commo n. The muscles at the base of your skull/back of your neck (suboccipital muscles) got tight, and then because a nerve (greater occipital nerve) goes through that muscle group and provides sensation to the top of your head and in some people behind the eyeit is likely that the suboccipital tension was causing compression on the greater occipital nerve leading to the headache you are feeling. -Fortunately this has gotten better, and there is not really anything specific we need to do at this time -If it recurs, the Tylenol that you took, and moist heat to the back of your neck would be a good approach. If it starts to become a constant problem or a frequently recurring problem, Dr. Miguel Mishra, DO who works in the same office as Marcial Em, could easily do OMT (manual medicine designed to settle down situations like this) to help get the suboccipital muscles to loosen more permanently. At this point in time that does not appear to be necessary. -It would likely be helpful to stay better hydrated, as frequently dehydration is a common cause for muscles to start to get tight. A reasonable target would be somewhere in the neighborhood of 60 ounces of fluid a day. As we discussed yesterday, as we age, are hormones that make us feel thirsty start to wear out. Because of this, it can be very easy to not drink enough simply because you do not feel thirsty. Keep track of what you drink, and try to target bare minimum of about 60 ounces a day Stroke -As an incidental finding, your CT (confirmed by MRI) does show that you had a stroke. Fortunately this does not seem to be showing any symptoms, and really the only timeframe we could put on it is that it was not present on a CT of the head in 2014, so it happened sometime in the last 6 years. -As someone who already has underlying vascular disease (as evidenced by her coronary disease and kidney disease) it is quite common to incidentally find a stroke on brain imaging done for other reasons. -The main reason for the further work-up was to evaluate if there was anything imminently reversible/modifiable that could help protect you from having future strokes -In a good way, this work-up seems to be very low yield: -Your carotid arteries did not show any significant blockages -Your cholesterol levels are suppressed "through the floor" -You are not a diabetic -Once we got you through the ER and all of the craziness that that entails, your blood pressure is leveled out and look quite respectable (although you were so high in the ER, I would recommend checking a few times a week at home just to get a "log of averages" of what your blood pressure typically runs) -Atrial fibrillation can lead to clots that lead to strokes, but medications likely apixaban that you are on is about as good as it gets at preventing strokeso as long as you are not missing doses there is not anything we should be adding to your regimen in that respect -As we discussed, about the only move we could possibly make, would be switching out your 81 mg aspirin for 75 mg of Plavix (clopidogrel), but as we discussed it is not clear how much of a benefit this would get you, and between your age, and already needing to be on the apixaban, I did not want to make that move "unilaterally" due to the potential of an increased risk of bleeding. This is more something that will be worthwhile in discussion with the regular team knows you better, but again it is not clear how much benefit it would get youwhich is why we are not making that as any kind of an immediate move. Definitely follow-up with Marcial Em, Dr. Weeks, and Dr. Dukes as it relates to all of this. Pending Studies at Discharge: No Stand-Alone Forms: [facility], Smoking Cessation Medications and DC Order Prescriptions: Continued aspirin [Ecotrin Low Strength] 81 mg tablet,delayed release (DR/EC) 81 mg PO QAM RF: 0 cholecalciferol (vitamin D3) 1,000 unit capsule 1,000 units PO QAM RF: 0 multivitamin tablet 1 tab PO HS RF: 0 Eliquis 2.5 mg tablet 2.5 mg PO BID Qty: 180 RF: 1 memantine [Namenda] 10 mg tablet 10 mg PO BID Qty: 180 RF: 1 donepezil 10 mg tablet 10 mg PO QAM Qty: 90 RF: 1 phenytoin sodium extended 100 mg capsule 100 mg PO TID Qty: 270 RF: 1 famotidine [Pepcid] 20 mg tablet 20 mg PO QAM Qty: 90 RF: 1 docusate sodium 100 mg capsule 100 mg PO QAM Qty: 10 RF: 0 metoprolol succinate [Toprol XL] 25 mg tablet extended release 24 hr 25 mg PO QAM RF: 0 rosuvastatin 5 mg tablet 5 mg PO QAM RF: 0 acetaminophen [Tylenol Extra Strength] 500 mg Tablet 500 mg PO UD PRN (Reason: Pain) RF: 0 Discharge Orders: Discharge Order (Routine); Ordered 05/05/20 Ordered By: Dennis Laureano Admission Data Admit Date/Time: 05/04/20 18:07 Attending Provider: Dennis Laureano Admit Provider: Dennis Laureano Primary Care Provider: Marcial Em III Other Providers: Rafael Castillo Other Interventions: Discharge Summary Assessment (RN) Last Done: 05/05/20 11:38 Coding Level of Care Code 52534 OBS Care - Discharge Diagnoses Headache R51.9 CVA (cerebral vascular accident) I63.9 CVA mechanism: unspecified CAD (coronary artery disease), kiana coronary artery I25.10 CKD (chronic kidney disease) stage 4, GFR 15-29 ml/min N18.4 Anemia D64.9 Afib I48.91 Dementia F03.90 DVT prophylaxis Z29.9 Discharge planning issues Z02.9
== END 2020-05-05 13:10 | disposition home or self-care (01) ==
LOC: ED 11:04 → 2N 11:04

== ENCOUNTER 2021-10-01 08:47 | Inpatient (IN) ==
[2021-10-01] MEDS ORDERED: ASPIRIN CHEW 324 MG PO STA (09:11)
[2021-10-01 09:28] LABS: Basophils # (auto) 0.03 K/uL (0-0.2); Basophils % (auto) 0.5 %; Eosinophils # (auto) 0.28 K/uL (0-0.50); Eosinophils % (auto) 4.2 %; Hematocrit (blood only) 47.1 % (40.1-51.0); Hemoglobin 16.2 g/dl (14.0-18.0); Immature Granulocytes # (auto) 0.03 K/uL (0.00-0.02); Immature Granulocytes % (auto) 0.5 %; Lymphocytes % (auto) 10.6 %; Mean Corpuscular Hemoglobin 33.2 pg (25.0-34.0); Mean Corpuscular Hgb Conc 34.4 g/dL (32.0-36.0); Mean Corpuscular Volume 96.5 fL (80.0-100.0); Monocytes # (auto) 0.51 K/uL (0.24-0.82); Monocytes % (auto) 7.7 %; Neutrophils # (auto) 5.06 K/uL (1.4-6.5); Neutrophils % (auto) 76.5 %; Platelet Count 315 K/uL (130-400); RDW Coefficient of Variation 13.6 % (11.5-14.5); RDW Standard Deviation 48.1 fL (36.4-46.3); Red Blood Count 4.88 M/uL (4.63-6.08); White Blood Count 6.61 K/ul (4.8-10.8)
--- NOTE | 2021-10-01 09:33 | XRay Report ---
SINGLE VIEW CHEST CLINICAL HISTORY: Atypical chest pain. FINDINGS: 2 AP, portable, upright chest radiographs are compared to study dated 05/04/2020 and correla june with chest CT dated 10/08/2009. The patient is status post midline sternotomy. Epicardial pacing l sanjuanita are in place. The heart is enlarged noting atherosclerotic calcification of the thoracic aorta. There is mild pulmonary vascular congestion. Chronic interstitial thickening is similar to previous. There are small pleural effusions with dependent consolidation. No pneumothorax is seen. The skeletal structures are osteopenic. There are healed left-sided rib fractures. IMPRESSION: 1. Cardiomegaly with mild pulmonary vascular congestion. 2. Small pleural effusions with dependent consolidation. ACT 112: Negative or not required by law. Electronically signed by: Vishal Valencia M.D. 10/01/2021 9:31 AM
[2021-10-01 09:59] LABS: Troponin I High Sensitivity 33.4 pg/ml (0-20)
[2021-10-01 10:03] LABS: Albumin Globulin Ratio 1.2 (0.9-2); Albumin Level 4.8 gm/dl (3.4-5.0); BUN Creatinine Ratio 22.5 (10-20); Bilirubin,Total 0.6 mg/dl (0.2-1.0); Calcium 9.8 mg/dl (8.5-10.1); Creatinine Clr Calc Pharmacy 25.4 ml/min; Est GFR (African American) 41.4 ml/min; Est GFR (Non-African American) 35.7 ml/min; Globulin 3.9 gm/dl (2.5-4.0); Total Protein 8.7 gm/dl (6.0-8.3)
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
--- NOTE | 2021-10-01 13:27 | XCELERA ---
[id number]
--- NOTE | 2021-10-01 13:34 | Ultrasound Report ---
US liver HISTORY: 85 years-old Male elevated LFTs, chest pain acutely elevated LFTs COMPARISON: CT abdomen and pelvis 03/06/2018 TECHNIQUE: Multiple real-time sonographic images of the abdominal right upper quadrant were obtained assessing grayscale appearance and color flow FINDINGS: Pancreas is obscured by bowel gas. Limited visualization of the liver which appears to demonstrate in creased echogenicity of the parenchyma. No hepatic mass or marginal nodularity identified. Unremarkab le gallbladder. No cholelithiasis. Normal common bile duct, 4 mm. Imaged right kidney demonstrates mild diffuse cortical thinning without hydronephrosis. IMPRESSION: 1. Limited exam secondary to obscuring bowel gas. 2. There is questioned increased echogenicity of the hepatic parenchyma which may represent hepatic s teatosis. 3. Unremarkable gallbladder. 4. No biliary ductal dilation. ACT 112: Negative or not required by law. The above report was generated using voice recognition software. It may contain grammatical, syntax o r spelling errors. Electronically signed by: Shon York M.D. 10/01/2021 1:32 PM
[2021-10-01] MEDS ORDERED: POLYETHYLENE (MIRALAX) 17 GM PACK PO PRN (14:50)
[2021-10-01] MEDS ORDERED: ONDANSETRON INJ 2 MG/ML 2 ML VIAL IV PRN (14:50)
[2021-10-01] MEDS ORDERED: NITROGLYCERIN SL 0.4 MG/TAB TAB SL PRN (14:50)
[2021-10-01] MEDS ORDERED: ACETAMINOPHEN 500 MG TAB PO PRN (14:50)
--- NOTE | 2021-10-01 14:58 | Electrocardiogram Report ---
Test Reason : Blood Pressure : / mmHG Vent. Rate : 095 BPM Atrial Rate : 095 BPM P-R Int : 216 ms QRS Dur : 136 ms QT Int : 382 ms P-R-T Axes : 000 071 -88 degrees QTc Int : 480 ms Sinus rhythm with 1st degree A-V block Right bundle branch block Possible Inferior infarct (cited on or before 06-MAR-2018) T wave abnormality, consider lateral ischemia Abnormal ECG When compared with ECG of 04-MAY-2020 11:29, Sinus rhythm has replaced Atrial fibrillation Confirmed by Oseas Solis ([id number]) on 10/01/2021 2:58:13 PM Referred By: Miguel Mishra Confirmed By:Oseas Solis
[2021-10-01] MEDS: PHENYTOIN SODIUM ER 100 MG CAP PO SCH ×2 (15:25→21:21)
[2021-10-01] MEDS: MEMANTINE HCL 10 MG TAB PO SCH (21:21)
[2021-10-01] MEDS: APIXABAN 2.5 MG TAB PO SCH (21:21)
[2021-10-02] MEDS: LEVOTHYROXINE SODIUM 25 MCG TABLET PO SCH (06:07)
[2021-10-02 06:36] LABS: Basophils # (auto) 0.02 K/uL (0-0.2); Basophils % (auto) 0.3 %; Eosinophils # (auto) 0.19 K/uL (0-0.50); Eosinophils % (auto) 2.6 %; Hemoglobin 13.2 g/dl (14.0-18.0); Immature Granulocytes # (auto) 0.02 K/uL (0.00-0.02); Immature Granulocytes % (auto) 0.3 %; Lymphocytes # (auto) 0.83 K/uL (1.2-3.4); Lymphocytes % (auto) 11.6 %; Mean Corpuscular Hemoglobin 31.8 pg (25.0-34.0); Mean Corpuscular Volume 96.4 fL (80.0-100.0); Mean Platelet Volume 8.9 fL (9.4-12.4); Monocytes # (auto) 0.78 K/uL (0.24-0.82); Monocytes % (auto) 10.9 %; Neutrophils # (auto) 5.34 K/uL (1.4-6.5); Neutrophils % (auto) 74.3 %; Platelet Count 241 K/uL (130-400); RDW Coefficient of Variation 13.3 % (11.5-14.5); RDW Standard Deviation 47.7 fL (36.4-46.3); Red Blood Count 4.15 M/uL (4.63-6.08); White Blood Count 7.18 K/ul (4.8-10.8)
[2021-10-02 06:48] LABS: Albumin Globulin Ratio 1.3 (0.9-2); Albumin Level 3.7 gm/dl (3.4-5.0); BUN Creatinine Ratio 21.7 (10-20); Bilirubin Direct 0.1 mg/dl (0-0.2); Bilirubin,Total 0.7 mg/dl (0.2-1.0); Calcium 8.9 mg/dl (8.5-10.1); Chol HDL Ratio 2.4 (0-5); Creatinine Clr Calc Pharmacy 27.7 ml/min; Est GFR (African American) 47.1 ml/min; Est GFR (Non-African American) 40.6 ml/min; Globulin 2.9 gm/dl (2.5-4.0); Potassium 4.5 mmol/L (3.5-5.1); Total Protein 6.6 gm/dl (6.0-8.3)
[2021-10-02] MEDS: DOCUSATE SODIUM 100 MG CAP PO SCH (08:55)
[2021-10-02] MEDS: CHOLECALCIFEROL 1,000 UNITS 25 MCG TAB PO SCH (08:55)
[2021-10-02] MEDS: ASPIRIN 81 MG ECTAB PO SCH (08:55)
[2021-10-02] MEDS: MEMANTINE HCL 10 MG TAB PO SCH ×2 (08:55→20:04)
[2021-10-02] MEDS: PHENYTOIN SODIUM ER 100 MG CAP PO SCH ×3 (08:55→20:04)
[2021-10-02] MEDS: APIXABAN 2.5 MG TAB PO SCH ×2 (08:55→20:02)
[2021-10-02] MEDS: METOPROLOL SUCC 25MG EXT REL TAB PO SCH (08:55)
[2021-10-02] MEDS: DONEPEZIL HCL 10 MG TAB PO SCH (08:55)
[2021-10-02] MEDS: ROSUVASTATIN CALCIUM 5 MG TAB PO SCH (08:55)
[2021-10-02] MEDS ORDERED: FAMOTIDINE 20 MG TAB PO SCH (09:00)
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
--- NOTE | 2021-10-02 13:54 | Electrocardiogram Report ---
Test Reason : Blood Pressure : / mmHG Vent. Rate : 089 BPM Atrial Rate : 089 BPM P-R Int : 000 ms QRS Dur : 134 ms QT Int : 408 ms P-R-T Axes : 000 068 -88 degrees QTc Int : 496 ms Poor data quality, interpretation may be adversely affected Sinus rhythm Right bundle branch block T wave abnormality, consider lateral ischemia Abnormal ECG When compared with ECG of 01-OCT-2021 08:57, No significant change Confirmed by Oseas Solis ([id number]) on 10/02/2021 1:54:16 PM Referred By: Miguel Mishra Confirmed By:Oseas Solis
--- NOTE | 2021-10-02 17:35 | CT Scan Report ---
CT OF THE CHEST WITHOUT IV CONTRAST CLINICAL HISTORY: Bilateral rib pain. Weight loss. COMPARISON STUDY: Chest radiograph October 08, 2009. Chest radiograph October 01, 2021. CT DOSE: 789.02 mGy.cm TECHNIQUE: Axial images of the chest were obtained without IV contrast. Images were reviewed in the axial, sagittal, and coronal planes. IV contrast was not administered for this examination. Automat ed exposure control was utilized for the study. A dose lowering technique was utilized adhering to t he principles of ALARA. FINDINGS: There is no pneumothorax. Small bilateral pleural effusions are noted. Pleural thickening is noted. A 5.4 cm left lower lobe masslike opacity is noted. This is likely chronic. Visualized port ions of this opacity shown on abdominal CT of March 06, 2018 are unchanged. A 3.7 cm right lower lo be subpleural opacity is present. These favor round atelectasis. No consolidation to suggest pneumoni a. Central airways are patent. No thoracic lymphadenopathy is present. Multiple old bilateral rib fra ctures are present. No acute rib fractures are identified. Multiple mild thoracic spine compression d eformities are noted. These were shown on prior chest radiograph of February 23, 2017. No acute thoraci c spine fracture is present. There are median sternotomy wires. Cardiomegaly is noted. There is no pe ricardial effusion. A moderate sized hiatal hernia is present. Abdomen and pelvis CT will be reported separately. IMPRESSION: 1. Small bilateral pleural effusions with associated pleural thickening. These probably reflect chron ic effusions. Bilateral lobe subpleural opacities, left larger than right. Although indeterminate, th scott favor round atelectasis. A follow-up chest CT in 3-6 months is recommended for reassessment. 2. Multiple old bilateral rib fractures. No acute rib fractures. 3. No pneumothorax. 4. Cardiomegaly. 5. Moderate-sized hiatal hernia. ACT 112: Negative or not required by law. Electronically signed by: Adam Mujica M.D. 10/02/2021 5:34 PM
--- NOTE | 2021-10-02 17:43 | CT Scan Report ---
CT OF THE ABDOMEN AND PELVIS WITHOUT CONTRAST CLINICAL HISTORY: Weight loss. Bilateral rib pain. COMPARISON STUDY: Right upper quadrant ultrasound October 01, 2021. CT of the abdomen and pelvis Ashok [id number] TECHNIQUE: Axial images of the abdomen and pelvis were obtained without IV contrast. Images were revi ewed in the axial, sagittal, and coronal planes. Automated exposure control was utilized for the servando dy. A dose lowering technique was utilized adhering to the principles of ALARA. FINDINGS: Small bilateral pleural effusions are noted with pleural thickening. Subpleural opacities a re better depicted on the chest CT. These favor round atelectasis. Moderate-sized hiatal hernia is no june. There are multiple old bilateral rib fractures. Old S2 fracture is noted. Old left pubic ring fr actures are present. No acute fracture is identified within visualized skeletal structures. Evaluatio n of the abdomen and pelvis is suboptimal on this unenhanced exam. No pneumatosis, free air or portal venous gas is present. Unenhanced images of the liver, spleen, adrenal glands, kidneys and pancreas are unremarkable. There is mild to moderate left renal cortical thinning. There is no hydronephrosis. No biliary or pancreatic ductal dilatation is present infrarenal abdominal aorta is ectatic. Sensiti vity for detection of mucosal lesions is diminished given CT technique. There is colonic diverticulos is without evidence for acute diverticulitis. There is no evidence for a bowel obstruction. There is no lymphadenopathy. There is no ascites. Moderate stool within the rectum. IMPRESSION: 1. No bowel obstruction. Colonic diverticulosis without evidence for acute diverticulitis. Moderate s tool within the rectum. 2. No acute process within the abdomen or pelvis on unenhanced exam. 3. Moderate-sized hiatal hernia. 4. Small bilateral pleural effusions with bilateral lower lobe airspace opacities which favor round a telectasis. These are better depicted on the chest CT which will be reported separately. ACT 112: Negative or not required by law. Electronically signed by: Adam Mujica M.D. 10/02/2021 5:41 PM
[2021-10-02] MEDS ORDERED: PANTOprazole 40 MG TAB PO STA (18:22)
[2021-10-02 18:58] LABS: Hematocrit (blood only) 41.7 % (40.1-51.0); Hemoglobin 14.3 g/dl (14.0-18.0)
[2021-10-02] MEDS: FAMOTIDINE 20 MG TAB PO SCH (20:03)
--- NOTE | 2021-10-02 22:18 | Hospitalist Progress Note ---
Date of Service October 02, 2021 Assessment & Plan (1) Chest pain: Plan: Patient felt to NOT have cardiac cause of presenting symptoms. Appreciate cardiology consultation. RUQ u/s notable for no gallstones or other biliary tract pathology. Elevated LFTs now normal. Given his recent weight loss, fatigue, lack of appetite, and presenting symptoms elected to pursue CT chest/abd/pelvis (noncontrast due to CrCl). This showed chronic b/l small pleural effusions and pleural thickening along with moderate hiatal hernia. I suspect this rib pain may have been pain from the stomach. Perhaps a severe reflux episode or esophageal spasm in the setting of the hiatal hernia. Add PPI once daily to his daily pepcid. Watch overnight. If continued symptoms then GI consultation. (2) Elevated LFTs: Plan: resolved. etiology? RUQ u/s negative. no biliary tract issue on CT either. anaplasmosis DNA sent to be complete. (3) Atrial fibrillation: Plan: Tele stable overnight mostly NSR with occasional runs of brief a.fib Continue home Eliquis, metoprolol (4) Benign essential hypertension: Plan: Controlled Continue home metoprolol (5) CAD (coronary artery disease), [place] coronary artery: Plan: S/p 4-vessel CABG Continue home aspirin, apixaban, metoprolol, statin Follows with Dr. Weeks of cardiology Appreciate Cardiology consult - presenting symptoms felt not to be cardiac in origin (6) CKD (chronic kidney disease) stage 4, GFR 15-29 ml/min: Plan: CKD stage III-IV Cr stable this am BMP in am (7) Dementia: Plan: No issues Continue home memantine and donepezil (8) Hyperlipidemia: Plan: Continue statin (9) Seizure disorder: Plan: Continue home phenytoin Check dilantin level am (10) Factor V Leiden: Plan: With a history of prior DVT Continue home apixaban (11) Hypothyroidism: Plan: Recently started on levothyroxine 25 mcg daily after complaining of 2 weeks of fatigue TSH was noted to be borderline elevated at 4.35, but with normal free T4 and low total T3 PCP started on levothyroxine Repeat TSH in 6 weeks (12) Severe protein-calorie malnutrition: Plan: 10-15 pounds of weight loss last month CT chest/abd/pelvis without specific pathology to account for it upper GI in etiology?? check sed rate/crp in am (13) Chronic systolic (congestive) heart failure: Plan: EF 45-50% on echo today Appears compensated small pleural effusions could be due to CHF but again they are small, sats are wnl, etc appreciate cardiology consult cont BB Plan updated at bedside keep overnight for observation Admission and Anticipated Discharge Date Admission Date: October 01, 2021 Subjective pt's at bedside during the visit she confirms he has been eating poorly for several weeks 10+ pounds of weight loss at minimum fatigue during this time period he has had no further episodes of discomfort "under the ribs" since admission no orthopnea no pleuritic pain no abd pain no burping/belching Review of Systems Review of Systems: gen - weight loss; no fevers GI - no melena, no BRBPR pulm - no cough CV - no substernal cp Physical Exam Physical Exam: gen - thin, NAD mouth - MMM neck - no JVD heart - RRR, s1 s2 lungs - slightly decreased BS bases, o/w CTA b/l abd - soft NT ND BS+ chest - no reproducible chest wall pain to palpation ext - no edema, pulses 2+ b/l skin - no rash Results & Data Results & Data ([facility]) Vital Signs (Past 12 Hours) Vital Signs Temp Pulse Pulse Resp BP Pulse Ox O2 Del Method 10/02/21 19:22 37.0 C 86 16 118/76 92 Room Air 10/02/21 15:38 37.0 C 85 17 107/66 93 Room Air 10/02/21 15:03 84 10/02/21 11:24 36.6 C 89 18 130/78 94 Room Air 10/02/21 11:09 89 10/02/21 11:09 Room Air Laboratory Results Laboratory Results - last 24 hr 10/01/21 10/02/21 10/02/21 23:08 05:57 05:57 WBC 7.18 RBC 4.15 L Hgb 13.2 L D Hct 40.0 L MCV 96.4 MCH 31.8 MCHC 33.0 RDW Std Deviation 47.7 H RDW Coeff of Viola 13.3 Plt Count 241 MPV 8.9 L Immature Gran % (Auto) 0.3 Neut % (Auto) 74.3 Lymph % (Auto) 11.6 [place] % (Auto) 10.9 Eos % (Auto) 2.6 Baso % (Auto) 0.3 Neut # (Auto) 5.34 Lymph # (Auto) 0.83 L [place] # (Auto) 0.78 Eos # (Auto) 0.19 Baso # (Auto) 0.02 Immature Gran # (Auto) 0.02 Sodium 138 Potassium 4.5 Chloride 107 Carbon Dioxide 23 Anion Gap 8 BUN 33 H Creatinine 1.52 H Est Cr Clr Drug Dosing 27.7 Est GFR ( Amer) 47.1 Est GFR (Non-Af Amer) 40.6 BUN/Creatinine Ratio 21.7 H Glucose 90 Calcium 8.9 Total Bilirubin 0.7 Direct Bilirubin 0.1 AST 21 ALT 34 Alkaline Phosphatase 130 H Troponin I High Sens 37.5 H Total Protein 6.6 D Albumin 3.7 Globulin 2.9 Albumin/Globulin Ratio 1.3 Triglycerides 119 Cholesterol 115 LDL Cholesterol, Calc 43 VLDL Cholesterol, Calc 24 HDL Cholesterol 48 Cholesterol/HDL Ratio 2.4 10/02/21 18:39 WBC RBC Hgb 14.3 Hct 41.7 MCV MCH MCHC RDW Std Deviation RDW Coeff of Viola Plt Count MPV Immature Gran % (Auto) Neut % (Auto) Lymph % (Auto) [place] % (Auto) Eos % (Auto) Baso % (Auto) Neut # (Auto) Lymph # (Auto) [place] # (Auto) Eos # (Auto) Baso # (Auto) Immature Gran # (Auto) Sodium Potassium Chloride Carbon Dioxide Anion Gap BUN Creatinine Est Cr Clr Drug Dosing Est GFR ( Amer) Est GFR (Non-Af Amer) BUN/Creatinine Ratio Glucose Calcium Total Bilirubin Direct Bilirubin AST ALT Alkaline Phosphatase Troponin I High Sens Total Protein Albumin Globulin Albumin/Globulin Ratio Triglycerides Cholesterol LDL Cholesterol, Calc VLDL Cholesterol, Calc HDL Cholesterol Cholesterol/HDL Ratio Diagnostic Findings Abdomen/Pelvis CT 10/02/21 15:08 CT OF THE ABDOMEN AND PELVIS WITHOUT CONTRAST CLINICAL HISTORY: Weight loss. Bilateral rib pain. COMPARISON STUDY: Right upper quadrant ultrasound October 01, 2021. CT of the abdomen and pelvis March 06, 2018 TECHNIQUE: Axial images of the abdomen and pelvis were obtained without IV contrast. Images were reviewed in the axial, sagittal, and coronal planes. Automated exposure control was utilized for the study. A dose lowering technique was utilized adhering to the principles of ALARA. FINDINGS: Small bilateral pleural effusions are noted with pleural thickening. Subpleural opacities are better depicted on the chest CT. These favor round atelectasis. Moderate-sized hiatal hernia is noted. There are multiple old bilateral rib fractures. Old S2 fracture is noted. Old left pubic ring fractures are present. No acute fracture is identified within visualized skeletal structures. Evaluation of the abdomen and pelvis is suboptimal on this unenhanced exam. No pneumatosis, free air or portal venous gas is present. Unenhanced images of the liver, spleen, adrenal glands, kidneys and pancreas are unremarkable. There is mild to moderate left renal cortical thinning. There is no hydronephrosis. No biliary or pancreatic ductal dilatation is present infrarenal abdominal aorta is ectatic. Sensitivity for detection of mucosal lesions is diminished given CT technique. There is colonic diverticulosis without evidence for acute diverticulitis. There is no evidence for a bowel obstruction. There is no lymphadenopathy. There is no ascites. Moderate stool within the rectum. IMPRESSION: 1. No bowel obstruction. Colonic diverticulosis without evidence for acute diverticulitis. Moderate stool within the rectum. 2. No acute process within the abdomen or pelvis on unenhanced exam. 3. Moderate-sized hiatal hernia. 4. Small bilateral pleural effusions with bilateral lower lobe airspace opacities which favor round atelectasis. These are better depicted on the chest CT which will be reported separately. ACT 112: Negative or not required by law. Electronically signed by: Adam Mujica M.D. 10/02/2021 5:[address] 10/02/21 15:08 CT OF THE CHEST WITHOUT IV CONTRAST CLINICAL HISTORY: Bilateral rib pain. Weight loss. COMPARISON STUDY: Chest radiograph October 08, 2009. Chest radiograph October 01, 2021. CT DOSE: 789.02 mGy.cm TECHNIQUE: Axial images of the chest were obtained without IV contrast. Images were reviewed in the axial, sagittal, and coronal planes. IV contrast was not administered for this examination. Automated exposure control was utilized for the study. A dose lowering technique was utilized adhering to the principles of ALARA. FINDINGS: There is no pneumothorax. Small bilateral pleural effusions are noted. Pleural thickening is noted. A 5.4 cm left lower lobe masslike opacity is noted. This is likely chronic. Visualized portions of this opacity shown on abdominal CT of March 06, 2018 are unchanged. A 3.7 cm right lower lobe subpleural opacity is present. These favor round atelectasis. No consolidation to suggest pneumonia. Central airways are patent. No thoracic lymphadenopathy is present. Multiple old bilateral rib fractures are present. No acute rib fractures are identified. Multiple mild thoracic spine compression deformities are noted. These were shown on prior chest radiograph of February 23, 2017. No acute thoracic spine fracture is present. There are median sternotomy wires. Cardiomegaly is noted. There is no pericardial effusion. A moderate sized hiatal hernia is present. Abdomen and pelvis CT will be reported separately. IMPRESSION: 1. Small bilateral pleural effusions with associated pleural thickening. These probably reflect chronic effusions. Bilateral lobe subpleural opacities, left larger than right. Although indeterminate, these favor round atelectasis. A follow-up chest CT in 3-6 months is recommended for reassessment. 2. Multiple old bilateral rib fractures. No acute rib fractures. 3. No pneumothorax. 4. Cardiomegaly. 5. Moderate-sized hiatal hernia. ACT 112: Negative or not required by law. Electronically signed by: Adam Mujica M.D. 10/02/2021 5:34 PM PG Care Time/CCT Total # of Minutes Spent Total Time Spent with Patient: Total time spent is greater than 50% in coordination of care (as documented) at patient's floor/unit and/or counseling patient: Coding Level of Care Code 15217 Subseq Obs Care Lvl 3 Diagnoses Chest pain R07.9 Elevated LFTs R79.89 Atrial fibrillation I48.91 Atrial fibrillation type: unspecified Benign essential hypertension I10 CAD (coronary artery disease), [place] coronary artery I25.10 CKD (chronic kidney disease) stage 4, GFR 15-29 ml/min N18.4 Dementia F03.90 Hyperlipidemia E78.5 Seizure disorder G40.909 Factor V Leiden D68.51 Hypothyroidism E03.9 Severe protein-calorie malnutrition E43 Chronic systolic (congestive) heart failure I50.22 (1) Atrial fibrillation Atrial fibrillation type: unspecified Qualified Code(s): I48.91 - Unspecified atrial fibrillation
[2021-10-03] MEDS: LEVOTHYROXINE SODIUM 25 MCG TABLET PO SCH (06:20)
[2021-10-03 06:38] LABS: BUN Creatinine Ratio 20.2 (10-20); Calcium 8.7 mg/dl (8.5-10.1); Creatinine Clr Calc Pharmacy 24.5 ml/min; Est GFR (African American) 40.3 ml/min; Est GFR (Non-African American) 34.7 ml/min; Potassium 4.7 mmol/L (3.5-5.1)
[2021-10-03] MEDS: PHENYTOIN SODIUM ER 100 MG CAP PO SCH ×3 (08:45→20:14)
[2021-10-03] MEDS: APIXABAN 2.5 MG TAB PO SCH ×2 (08:45→20:14)
[2021-10-03] MEDS: MEMANTINE HCL 10 MG TAB PO SCH ×2 (08:45→20:15)
[2021-10-03] MEDS: ASPIRIN 81 MG ECTAB PO SCH (08:46)
[2021-10-03] MEDS: ROSUVASTATIN CALCIUM 5 MG TAB PO SCH (08:46)
[2021-10-03] MEDS: PANTOprazole 40 MG TAB PO SCH (08:46)
[2021-10-03] MEDS: CHOLECALCIFEROL 1,000 UNITS 25 MCG TAB PO SCH (08:46)
[2021-10-03] MEDS: METOPROLOL SUCC 25MG EXT REL TAB PO SCH (08:46)
[2021-10-03] MEDS: DONEPEZIL HCL 10 MG TAB PO SCH (08:47)
[2021-10-03] MEDS: DOCUSATE SODIUM 100 MG CAP PO SCH (08:49)
--- NOTE | 2021-10-03 12:56 | Electrocardiogram Report ---
Test Reason : Blood Pressure : / mmHG Vent. Rate : 088 BPM Atrial Rate : 088 BPM P-R Int : 000 ms QRS Dur : 134 ms QT Int : 404 ms P-R-T Axes : 000 082 260 degrees QTc Int : 488 ms Normal sinus rhythm Right bundle branch block T wave abnormality, consider lateral ischemia Abnormal ECG When compared with ECG of 02-OCT-2021 06:25, No significant change Confirmed by Oseas Solis ([id number]) on 10/03/2021 12:56:01 PM Referred By: Miguel Mishra Confirmed By:Oseas Solis
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
[2021-10-03] MEDS ORDERED: predniSONE 10 MG TABLET PO STA (16:41)
[2021-10-03] MEDS: FAMOTIDINE 20 MG TAB PO SCH (20:15)
--- NOTE | 2021-10-03 20:20 | Hospitalist Progress Note ---
Date of Service October 03, 2021 Assessment & Plan (1) Chest pain: Plan: Patient felt to NOT have cardiac cause of presenting symptoms. Appreciate cardiology consultation. RUQ u/s notable for no gallstones or other biliary tract pathology. Recent Elevated LFTs now normal. Given his recent weight loss, fatigue, lack of appetite, and presenting symptoms elected to pursue CT chest/abd/pelvis (noncontrast due to CrCl). This showed chronic b/l small pleural effusions and pleural thickening along with moderate hiatal hernia. Despite addition of PPI he had b/l subcostal pleuritic pain overnight. It is worse when laying down. He did not have pericardial effusion on echo yesterday. I asked pulmonary to see in consult - they, too, feel that CT findings are chronic and unlikely to be causing symptoms. Thus, etiology of symptoms?? He may simply have pleurisy thus will trial prednisone 30mg daily. Recheck crp in am. Recheck a troponin in am. (2) Elevated LFTs: Plan: resolved. etiology? RUQ u/s negative. no biliary tract issue on CT either. anaplasmosis DNA sent to be complete. (3) Atrial fibrillation: Plan: Tele stable overnight mostly NSR with occasional runs of brief a.fib Continue home Eliquis, metoprolol (4) Benign essential hypertension: Plan: Controlled Continue home metoprolol (5) CAD (coronary artery disease), [place] coronary artery: Plan: S/p 4-vessel CABG Continue home aspirin, apixaban, metoprolol, statin Follows with Dr. Weeks of cardiology Appreciate Cardiology consult - presenting symptoms felt not to be cardiac in origin Repeat a troponin in the am (6) CKD (chronic kidney disease) stage 4, GFR 15-29 ml/min: Plan: CKD stage III-IV Cr stable / at baseline this am BMP in am again (7) Dementia: Plan: No issues Continue home memantine and donepezil (8) Hyperlipidemia: Plan: Continue statin (9) Seizure disorder: Plan: Continue home phenytoin Dilantin level acceptable today (10) Factor V Leiden: Plan: With a history of prior DVT Continue home apixaban (11) Hypothyroidism: Plan: Recently started on levothyroxine 25 mcg daily after complaining of 2 weeks of fatigue TSH was noted to be borderline elevated at 4.35, but with normal free T4 and low total T3 PCP started on levothyroxine Repeat TSH in 6 weeks (12) Severe protein-calorie malnutrition: Plan: 10-15 pounds of weight loss last month CT chest/abd/pelvis without specific pathology to account for it sed rate basically normal if adjusted for his age but CRP is high etiology of high CRP uncertain repeat CRP in am consider GI referral post-d/c (13) Chronic systolic (congestive) heart failure: Plan: EF 45-50% on echo Appears compensated clinically but does have effusions on CT consider gentle diuresis appreciate pulmonary consult appreciate cardiology consult cont BB (14) Hiatal hernia: Plan: moderate in size added once daily PPI to his H2 emani could be contributing to presenting symptoms but uncertain (15) Round atelectasis: Plan: as seen on CT chest pulmonary has seen - does not feel that infiltrates are active infection speech consult obtained to ensure the CT findings are not from aspiration -- no dysphagia or overt signs of aspiration on bedside swallow Plan updated at bedside keep overnight for observation with hopes that pleuritic chest pain resolves change observation to full admission status Admission and Anticipated Discharge Date Admission Date: October 03, 2021 Subjective patient states that sometime last evening after laying down to go to bed the pain under his ribs returned when he takes a big breath or lays down the pain is worst he points to both subcostal regions as the location denies substernal chest pain he has a good appetite today - pain not worsened with eating symptoms seem better when he is upright in the chair no dyspnea or cough today at bedside during the visit tele overnight stable Review of Systems Review of Systems: gen - no fevers, good appetite today cv - see HPI; no orthopnea pulm - no dyspnea GI - no abd pain, nausea, emesis Physical Exam Physical Exam: gen - thin, NAD, poor historian mouth - MMM neck - no JVD heart - RRR, s1 s2, no murmur lungs - slightly decreased BS bases, o/w CTA b/l chest - no reproducible chest wall tenderness to palpation abd - soft NT ND BS+ ext - no edema, pulses 2+ b/l skin - no rash Results & Data Results & Data ([facility]) Vital Signs (Past 12 Hours) Vital Signs Temp Pulse Pulse Resp BP Pulse Ox O2 Del Method 10/03/21 15:52 90 10/03/21 15:04 36.6 C 89 17 105/60 95 Room Air 10/03/21 11:05 36.8 C 94 H 16 103/64 95 Room Air 10/03/21 10:12 Room Air Laboratory Results Laboratory Results - last 24 hr 10/03/21 10/03/21 10/03/21 05:47 06:58 06:58 ESR 27 H Sodium 138 Potassium 4.7 Chloride 106 Carbon Dioxide 26 Anion Gap 6 BUN 35 H Creatinine 1.73 H Est Cr Clr Drug Dosing 24.5 Est GFR ( Amer) 40.3 Est GFR (Non-Af Amer) 34.7 BUN/Creatinine Ratio 20.2 H Glucose 90 Calcium 8.7 C-Reactive Protein 10.51 H Phenytoin 10/03/21 06:58 ESR Sodium Potassium Chloride Carbon Dioxide Anion Gap BUN Creatinine Est Cr Clr Drug Dosing Est GFR ( Amer) Est GFR (Non-Af Amer) BUN/Creatinine Ratio Glucose Calcium C-Reactive Protein Phenytoin 18.0 PG Care Time/CCT Total # of Minutes Spent Total Time Spent with Patient: Total time spent is greater than 50% in coordination of care (as documented) at patient's floor/unit and/or counseling patient: Coding Level of Care Code 25949 Subseq Hosp Care Lvl 3 Diagnoses Chest pain R07.9 Elevated LFTs R79.89 Atrial fibrillation I48.91 Atrial fibrillation type: unspecified Benign essential hypertension I10 CAD (coronary artery disease), [place] coronary artery I25.10 CKD (chronic kidney disease) stage 4, GFR 15-29 ml/min N18.4 Dementia F03.90 Hyperlipidemia E78.5 Seizure disorder G40.909 Factor V Leiden D68.51 Hypothyroidism E03.9 Severe protein-calorie malnutrition E43 Chronic systolic (congestive) heart failure I50.22 Hiatal hernia K44.9 Round atelectasis J98.11 (1) Atrial fibrillation Atrial fibrillation type: unspecified Qualified Code(s): I48.91 - Unspecified atrial fibrillation
[2021-10-04] MEDS: LEVOTHYROXINE SODIUM 25 MCG TABLET PO SCH (06:06)
[2021-10-04] MEDS: APIXABAN 2.5 MG TAB PO SCH (08:15)
[2021-10-04] MEDS: DONEPEZIL HCL 10 MG TAB PO SCH (08:15)
[2021-10-04] MEDS: ROSUVASTATIN CALCIUM 5 MG TAB PO SCH (08:15)
[2021-10-04] MEDS: CHOLECALCIFEROL 1,000 UNITS 25 MCG TAB PO SCH (08:15)
[2021-10-04] MEDS: METOPROLOL SUCC 25MG EXT REL TAB PO SCH (08:15)
[2021-10-04] MEDS: PANTOprazole 40 MG TAB PO SCH (08:15)
[2021-10-04] MEDS: PHENYTOIN SODIUM ER 100 MG CAP PO SCH ×2 (08:15→13:03)
[2021-10-04] MEDS: MEMANTINE HCL 10 MG TAB PO SCH (08:16)
[2021-10-04] MEDS: ASPIRIN 81 MG ECTAB PO SCH (08:16)
[2021-10-04] MEDS: DOCUSATE SODIUM 100 MG CAP PO SCH (08:32)
[2021-10-04 14:36] LABS: Hematocrit (blood only) 41.4 % (40.1-51.0); Mean Corpuscular Hemoglobin 32.3 pg (25.0-34.0); Mean Corpuscular Hgb Conc 33.8 g/dL (32.0-36.0); Mean Corpuscular Volume 95.4 fL (80.0-100.0); Mean Platelet Volume 9.1 fL (9.4-12.4); Platelet Count 242 K/uL (130-400); RDW Coefficient of Variation 13.3 % (11.5-14.5); RDW Standard Deviation 46.8 fL (36.4-46.3); Red Blood Count 4.34 M/uL (4.63-6.08); White Blood Count 8.18 K/ul (4.8-10.8)
[2021-10-04 14:54] LABS: C Reactive Protein 5.54 mg/dl (0-0.5); Calcium 8.5 mg/dl (8.5-10.1); Creatinine Clr Calc Pharmacy 23.3 ml/min; Est GFR (African American) 38.9 ml/min; Est GFR (Non-African American) 33.6 ml/min; Potassium 4.2 mmol/L (3.5-5.1)
[2021-10-04 15:00] LABS: Troponin I High Sensitivity 39.3 pg/ml (0-20)
--- NOTE | 2021-10-04 15:58 | Discharge Summary ---
Date of Service date of admission - October 01, 2021 date of discharge - October 04, 2021 Admission HPI Per Admitting Provider This patient is an 85-year-old male with a history of CAD s/p 4V CABG, permanent atrial fibrillation on Eliquis, CKD stage IV with a history of being on hemodialysis post CABG, lower extremity embolization s/p multiple toe amputations, HTN, hyperlipidemia, factor V Leiden with prior DVT, dementia, seizure disorder who presents to the ER with chest pain that came on and woke him from sleep at 3:00 this morning and lasted maybe 5 minutes. That pain was in the epigastric region. He walked to the bathroom and urinated came back and the pain was gone. He then had recurrence of pain more in the left side of the chest under the ribs in the left upper quadrant that came and went a couple of times, 1 of which was after eating his breakfast as per his . He did have some shortness of breath when he arrived at the ER but the reports this is chronic for him with exertion. He did not take anything to make the symptoms better. The pain was nonradiating and was a 2/10 in severity. He denies fevers or chills, no cough, no headache or lightheadedness, no diarrhea or constipation, no urinary symptoms, no hematuria or hematochezia. He denies any abdominal pain, nausea, or vomiting. By the time he arrived at the ER, his pain was resolved. He has never had anything like this before. He was seen in the office by his PCP 2 weeks ago for symptoms of excessive fatigue for the previous 1 to 2 weeks. At that time, he had blood work drawn and was found to have mildly elevated LFTs, as well as borderline hypothyroidism. He was started on levothyroxine 25 mcg daily at that time and the fatigue resolved. He did not have a COVID test at that time. In the ER, he was afebrile, mildly tachypneic initially, mildly tachycardic in the 90s initially, and mildly hypertensive. Pulse ox was 90% on room air at the lowest but is now up to 93% on room air and he is in no distress. He had a mildly elevated troponin at 33, ECG showed a sinus rhythm with first- degree AV block, RBBB, and T wave inversions in anterolateral leads unchanged from previous. Laboratory values were otherwise fairly unremarkable except his creatinine was elevated 1.69 which is actually improved from his baseline, and his ALT and alkaline phosphatase are mildly elevated. The LFT elevations were present on blood work from 2 weeks ago, but overall in general are new from previous. Lipase was negative. COVID-19 was negative. Chest x-ray showed cardiomegaly with mild pulmonary vascular congestion, small pleural effusions with bibasilar dependent consolidation. He will be admitted to rule out acute coronary syndrome and other causes of chest pain, shortness of breath, and elevated LFTs. Principal Diagnosis 1. chest pain - ACS unlikely 2. moderate sized hiatal hernia Discharge Exam gen - thin, NAD, poor historian mouth - MMM neck - no JVD heart - RRR, s1 s2, no murmur lungs - slightly decreased BS bases, o/w CTA b/l chest - no reproducible chest wall tenderness to palpation abd - soft NT ND BS+ ext - no edema, pulses 2+ b/l skin - no rash Discharge Data Allergies Allergy/AdvReac Type Severity Reaction Status Date / Time atorvastatin Allergy Unknown Unknown Verified 10/09/21 10:58 heparin Allergy Unknown ? Heparin Verified 10/09/21 10:58 Induced Thrombocytopenia versus DIC Penicillins Allergy Unknown RASH AND Verified 10/09/21 10:58 ITCHING simvastatin Allergy Unknown Unknown Verified 10/09/21 10:58 ciprofloxacin [From Cipro] Allergy Verified 10/09/21 10:58 doxycycline Allergy Verified 10/09/21 10:58 oxycodone Allergy Verified 10/09/21 10:58 Pkyysde-FIX-DgG Reductase AdvReac Unknown ?SEIZURES Verified 10/09/21 10:58 Inhibitor [Npvavem-Afd-Auc Reductase Inhibitor] Consultations [facility] Cardiology [facility] Pulmonary PT Speech therapy Procedures Performed Echocardiogram: * EF 45-50% * global hypokinesis of LV * mild mitral regurgitation Ordered Studies Chest X-Ray 10/01/21 09:11 SINGLE VIEW CHEST CLINICAL HISTORY: Atypical chest pain. FINDINGS: 2 AP, portable, upright chest radiographs are compared to study dated 05/04/2020 and correlated with chest CT dated 10/08/2009. The patient is status post midline sternotomy. Epicardial pacing leads are in place. The heart is enlarged noting atherosclerotic calcification of the thoracic aorta. There is mild pulmonary vascular congestion. Chronic interstitial thickening is similar to previous. There are small pleural effusions with dependent consolidation. No pneumothorax is seen. The skeletal structures are osteopenic. There are healed left-sided rib fractures. IMPRESSION: 1. Cardiomegaly with mild pulmonary vascular congestion. 2. Small pleural effusions with dependent consolidation. ACT 112: Negative or not required by law. Electronically signed by: Vishal Valencia M.D. 10/01/2021 9:31 AM Liver Ultrasound 10/01/21 10:50 US liver HISTORY: 85 years-old Male elevated LFTs, chest pain acutely elevated LFTs COMPARISON: CT abdomen and pelvis 03/06/2018 TECHNIQUE: Multiple real-time sonographic images of the abdominal right upper quadrant were obtained assessing grayscale appearance and color flow FINDINGS: Pancreas is obscured by bowel gas. Limited visualization of the liver which appears to demonstrate increased echogenicity of the parenchyma. No hepatic mass or marginal nodularity identified. Unremarkable gallbladder. No cholelithiasis. Normal common bile duct, 4 mm. Imaged right kidney demonstrates mild diffuse cortical thinning without hydronephrosis. IMPRESSION: 1. Limited exam secondary to obscuring bowel gas. 2. There is questioned increased echogenicity of the hepatic parenchyma which may represent hepatic steatosis. 3. Unremarkable gallbladder. 4. No biliary ductal dilation. ACT 112: Negative or not required by law. The above report was generated using voice recognition software. It may contain grammatical, syntax or spelling errors. Electronically signed by: Shon York M.D. 10/01/2021 1:32 PM Abdomen/Pelvis CT 10/02/21 15:08 CT OF THE ABDOMEN AND PELVIS WITHOUT CONTRAST CLINICAL HISTORY: Weight loss. Bilateral rib pain. COMPARISON STUDY: Right upper quadrant ultrasound October 01, 2021. CT of the abdomen and pelvis March 06, 2018 TECHNIQUE: Axial images of the abdomen and pelvis were obtained without IV contrast. Images were reviewed in the axial, sagittal, and coronal planes. Automated exposure control was utilized for the study. A dose lowering technique was utilized adhering to the principles of ALARA. FINDINGS: Small bilateral pleural effusions are noted with pleural thickening. Subpleural opacities are better depicted on the chest CT. These favor round atelectasis. Moderate-sized hiatal hernia is noted. There are multiple old bilateral rib fractures. Old S2 fracture is noted. Old left pubic ring fractures are present. No acute fracture is identified within visualized skeletal structures. Evaluation of the abdomen and pelvis is suboptimal on this unenhanced exam. No pneumatosis, free air or portal venous gas is present. Unenhanced images of the liver, spleen, adrenal glands, kidneys and pancreas are unremarkable. There is mild to moderate left renal cortical thinning. There is no hydronephrosis. No biliary or pancreatic ductal dilatation is present infrarenal abdominal aorta is ectatic. Sensitivity for detection of mucosal lesions is diminished given CT technique. There is colonic diverticulosis without evidence for acute diverticulitis. There is no evidence for a bowel obstruction. There is no lymphadenopathy. There is no ascites. Moderate stool within the rectum. IMPRESSION: 1. No bowel obstruction. Colonic diverticulosis without evidence for acute diverticulitis. Moderate stool within the rectum. 2. No acute process within the abdomen or pelvis on unenhanced exam. 3. Moderate-sized hiatal hernia. 4. Small bilateral pleural effusions with bilateral lower lobe airspace opacities which favor round atelectasis. These are better depicted on the chest CT which will be reported separately. ACT 112: Negative or not required by law. Electronically signed by: Adam Mujica M.D. 10/02/2021 5:[address] 10/02/21 15:08 CT OF THE CHEST WITHOUT IV CONTRAST CLINICAL HISTORY: Bilateral rib pain. Weight loss. COMPARISON STUDY: Chest radiograph October 08, 2009. Chest radiograph October 01, 2021. CT DOSE: 789.02 mGy.cm TECHNIQUE: Axial images of the chest were obtained without IV contrast. Images were reviewed in the axial, sagittal, and coronal planes. IV contrast was not administered for this examination. Automated exposure control was utilized for the study. A dose lowering technique was utilized adhering to the principles of ALARA. FINDINGS: There is no pneumothorax. Small bilateral pleural effusions are noted. Pleural thickening is noted. A 5.4 cm left lower lobe masslike opacity is noted. This is likely chronic. Visualized portions of this opacity shown on abdominal CT of March 06, 2018 are unchanged. A 3.7 cm right lower lobe subpleural opacity is present. These favor round atelectasis. No consolidation to suggest pneumonia. Central airways are patent. No thoracic lymphadenopathy is present. Multiple old bilateral rib fractures are present. No acute rib fractures are identified. Multiple mild thoracic spine compression deformities are noted. These were shown on prior chest radiograph of February 23, 2017. No acute thoracic spine fracture is present. There are median sternotomy wires. Cardiomegaly is noted. There is no pericardial effusion. A moderate sized hiatal hernia is present. Abdomen and pelvis CT will be reported separately. IMPRESSION: 1. Small bilateral pleural effusions with associated pleural thickening. These probably reflect chronic effusions. Bilateral lobe subpleural opacities, left larger than right. Although indeterminate, these favor round atelectasis. A follow-up chest CT in 3-6 months is recommended for reassessment. 2. Multiple old bilateral rib fractures. No acute rib fractures. 3. No pneumothorax. 4. Cardiomegaly. 5. Moderate-sized hiatal hernia. ACT 112: Negative or not required by law. Electronically signed by: Adam Mujica M.D. 10/02/2021 5:34 PM Hospital Course (1) Chest pain: Patient was felt to not have a cardiac cause of his presenting symptoms. He was seen by [facility] Cardiology and invasive cardiac testing was deferred. Peak HS troponin was 39. RUQ u/s notable for no gallstones or other biliary tract pathology. Given his recent weight loss, fatigue, lack of appetite, and presenting symptoms I elected to pursue CT chest/abd/pelvis (noncontrast due to CrCl). This showed chronic b/l small pleural effusions and pleural thickening along with moderate hiatal hernia. Despite addition of PPI he still had b/l subcostal pleuritic pain. It was worse when laying down at night-time (had such while hospitalized). He did not have any pericardial effusion on echo and pericarditis was not suspected, however. I asked [facility] Pulmonary to see in consult. They felt that his CT findings (small b/l pleural effusions, etc) were chronic and unlikely to be causing symptoms. Thus, the exact etiology of his symptoms was uncertain. Perhaps pleurisy? He was given a trial of prednisone and by the next day his symptoms were improved. Thus, will d/c home on a course of prednisone for possible pleurisy. He will take a daily PPI due to the hiatal hernia as well. Close f/u with his PCP will be needed to ensure that the presenting symptoms do not recur. (2) Elevated LFTs: resolved. LFTs were normal while here. etiology? RUQ u/s negative. no biliary tract issue on CT abd/pelvis either. Lyme testing was negative. Anaplasmosis smear & DNA testing were both negative. (3) Atrial fibrillation: Tele stable while here - mostly NSR with occasional runs of brief a.fib. Continue home Eliquis, metoprolol. (4) Benign essential hypertension: Controlled Continue home metoprolol (5) CAD (coronary artery disease), [place] coronary artery: h/o 4-vessel CABG [facility] Cardiology was consulted - presenting symptoms felt not to be cardiac in origin Continue home aspirin, apixaban, metoprolol, statin Follows with Dr. Jeffrey Weeks of [facility] cardiology (6) CKD (chronic kidney disease) stage 4, GFR 15-29 ml/min: CKD stage III-IV Cr stable / at baseline while here (1.7) (7) Dementia: No issues during the visit Continue home memantine and donepezil Seen by PT - cleared for home with (8) Hyperlipidemia: Continue statin LDL was 43 on lipid profile (9) Seizure disorder: Continue home phenytoin Dilantin level acceptable at 18 during the visit (10) Factor V Leiden: With a history of prior DVT Continue home apixaban (11) Hypothyroidism: Recently started on levothyroxine 25 mcg daily after complaining of 2 weeks of fatigue TSH was noted to be borderline elevated at 4.35, but with normal free T4 and low total T3 PCP started on levothyroxine Repeat TSH in 6 weeks as outpatient (12) Severe protein-calorie malnutrition: 10-15 pounds of weight loss last month CT chest/abd/pelvis without specific pathology to account for it sed rate basically normal if adjusted for his age but CRP was high etiology of high CRP was uncertain initial CRP 10.5, improving to 5.5 after steroids consider GI referral post-d/c (13) Chronic systolic (congestive) heart failure: EF 45-50% on echo seen by both pulmonary and cardiology while here cont BB gave 3 days of low-dose oral lasix at discharge to keep I/O balance net negative (14) Hiatal hernia: moderate in size added once daily PPI in cortney of his H2 emani GERD/gastritis could be contributing to presenting symptoms but uncertain (15) Round atelectasis: as seen on CT chest [facility] pulmonary saw in consult - they did not feel that infiltrates were active infection speech consult obtained to ensure the CT findings were not from aspiration -- no dysphagia or overt signs of aspiration on bedside swallow Total Time Total Time Spent Total Time Spent (In Minutes): 45 Discharge Plan Discharge Items Patient Disposition: Home - Self-Care Reason For Visit: CHEST PAIN Discharge Diagnosis: Chest pain - heart attack felt unlikely. No evidence of pneumonia. Moderate sized hiatal hernia was seen on CT scan of chest - heartburn/GI issues could have caused the pain. Pleurisy is also a possibility. Pain has improved with acid reducers and prednisone. Activity: Resume your previous activity Non-emergency contact: Primary Care Provider Call non-emergency contact if: you have any medication questions, your symptoms worsen, your pain is not controlled, your pain is worsening, your pain is unusual for you, your pain is concerning for you and you have a fever Follow-up/Referrals: Panfilo Weeks MD [Physician] - 10/08/21 10:00 am (1-2 weeks) Miguel Mishra DO [Primary Care Provider] - 10/09/21 11:20 am (5 days ) Diet: Heart Healthy Addtl Attending Provider Instructions: Mr Valentin - Ramos presented to [facility] with a pain that woke you from sleep. It was located under the ribcage, mainly on the left. The [facility] Cardiology team saw you and felt that you did not have a heart attack. They did not think the pain was heart-related. We performed scans of your chest, abdomen, and pelvis for a number of reasons including the recent weight loss, recent appetite changes, fatigue, and the pains. The chest CT showed pockets of fluid in the bottoms of both lungs but these were OLD. [facility] felt the pockets were too small to drain. We found that you have a moderate sized hiatal hernia which is when the stomach slides up into the chest cavity. It is possible that heartburn/hiatal hernia issues may have caused your pain. We have changed your acid daycare manager to something stronger. Pleurisy is another possible cause of your pain. This is when the lining of the lung is irritated. Your pain improved with acid reducers as well as prednisone. Recommendations - 1. stop your famotidine. 2. start pantoprazole 40mg once daily every morning, first dose tomorrow. This is for acid reduction and to protect your stomach. 3. prednisone course - start this TOMORROW morning; take with food. It is a 6- day course. 4. furosemide water pill (to help with the pockets of fluid in your chest) - take 20mg once daily in the morning for 3 days only. Start this TOMORROW. Again just take for 3 days only. Follow-up - see your family doctor within [address] Weeks from cardiology within 1-2 weeks Return to [facility] if - * you have fevers over 100 degrees * you have worsening shortness of breath * you have return of the chest pains * any other concerns It was our pleasure to care for you! Dr Evans Pending Studies at Discharge: No Stand-Alone Forms: My [facility], Smoking Cessation Medications and DC Order Prescriptions: New pantoprazole 40 mg Tablet,Delayed Release (Dr/Ec) 40 mg PO QAM Qty: 30 5RF furosemide [Lasix] 20 mg tablet 20 mg PO QAM Qty: 3 0RF Rx Instructions: start AM of 10/05/21. Continued aspirin [Ecotrin Low Strength] 81 mg tablet,delayed release (DR/EC) 81 mg PO QAM cholecalciferol (vitamin D3) 1,000 unit capsule 1,000 units PO QAM multivitamin tablet 1 tab PO HS Eliquis 2.5 mg tablet 2.5 mg PO BID Qty: 180 2RF rosuvastatin 5 mg tablet 5 mg PO QAM Qty: 90 2RF metoprolol succinate [Toprol XL] 25 mg tablet extended release 24 hr 25 mg PO QAM Qty: 90 2RF memantine 10 mg tablet See Rx Instructions .ROUTE .COMPLEX Qty: 180 3RF Dose Instruction: TAKE 1 TABLET TWICE A DAY Rx Instructions: TAKE 1 TABLET TWICE A DAY donepezil 10 mg tablet See Rx Instructions .ROUTE .COMPLEX Qty: 90 3RF Dose Instruction: TAKE 1 TABLET EVERY MORNING Rx Instructions: TAKE 1 TABLET EVERY MORNING phenytoin sodium extended 100 mg capsule 100 mg PO TID Qty: 270 1RF levothyroxine 25 mcg tablet 25 mcg PO DAILY Qty: 30 2RF docusate sodium 100 mg capsule 100 mg PO QAM Qty: 10 acetaminophen [Tylenol Extra Strength] 500 mg Tablet 500 mg PO UD PRN (Reason: Pain) Discontinued famotidine 20 mg tablet See Rx Instructions .ROUTE .COMPLEX Qty: 90 3RF Dose Instruction: TAKE 1 TABLET EVERY MORNING Rx Instructions: TAKE 1 TABLET EVERY MORNING Discharge Orders: Discharge Order (Routine); Ordered 10/04/21 Ordered By: Rafael Reyes/Other Patient Handouts: What Is a Hiatal Hernia? Admission Data Admit Date/Time: 10/03/21 19:40 Attending Provider: Rafael Evans Admit Provider: Nancy Campbell Primary Care Provider: Miguel Mishra Other Providers: Panfilo Weeks ; Nancy Campbell ; Zachary Hernandez Other Interventions: Discharge Summary Assessment (RN) Last Done: 10/04/21 15:24 Coding Level of Care Code D/C DAY MANAGEMENT >30 MINS Diagnoses Chest pain R07.9 Elevated LFTs R79.89 Atrial fibrillation I48.91 Atrial fibrillation type: unspecified Benign essential hypertension I10 CAD (coronary artery disease), [place] coronary artery I25.10 CKD (chronic kidney disease) stage 4, GFR 15-29 ml/min N18.4 Dementia F03.90 Hyperlipidemia E78.5 Seizure disorder G40.909 Factor V Leiden D68.51 Hypothyroidism E03.9 Severe protein-calorie malnutrition E43 Chronic systolic (congestive) heart failure I50.22 Hiatal hernia K44.9 Round atelectasis J98.11
[2021-10-04] MEDS ORDERED: predniSONE 10 MG TABLET PO ONE (16:00)
== END 2021-10-04 17:34 | disposition home or self-care (01) | DRG 193 ==
LOC: EDINP 08:47 → ED 08:47 → SUATTDRO 11:09 → 2E 14:50

== ENCOUNTER 2021-10-17 10:12 | Inpatient (IN) ==
[2021-10-17] MEDS ORDERED: fentaNYL citrate 100 MCG/2 ML VIAL IV STA (10:48)
[2021-10-17] MEDS ORDERED: ONDANSETRON INJ 2 MG/ML 2 ML VIAL IV STA (10:48)
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
[2021-10-17 10:53] LABS: Basophils # (auto) 0.02 K/uL (0-0.2); Basophils % (auto) 0.2 %; Eosinophils # (auto) 0.29 K/uL (0-0.50); Eosinophils % (auto) 3.5 %; Hematocrit (blood only) 41.2 % (40.1-51.0); Hemoglobin 13.8 g/dl (14.0-18.0); Immature Granulocytes # (auto) 0.03 K/uL (0.00-0.02); Immature Granulocytes % (auto) 0.4 %; Lymphocytes # (auto) 0.89 K/uL (1.2-3.4); Lymphocytes % (auto) 10.6 %; Mean Corpuscular Hemoglobin 32.9 pg (25.0-34.0); Mean Corpuscular Hgb Conc 33.5 g/dL (32.0-36.0); Mean Corpuscular Volume 98.1 fL (80.0-100.0); Monocytes # (auto) 0.67 K/uL (0.24-0.82); Neutrophils # (auto) 6.48 K/uL (1.4-6.5); Neutrophils % (auto) 77.3 %; Platelet Count 258 K/uL (130-400); RDW Coefficient of Variation 14.4 % (11.5-14.5); RDW Standard Deviation 51.3 fL (36.4-46.3); White Blood Count 8.38 K/ul (4.8-10.8)
--- NOTE | 2021-10-17 11:12 | Communication Note ---
Date of Service: October 17, 2021 Patient seen and examined with Dr. Rodriguez Resident Activity Tracking Resident Involvement: Resident Care Provided Care Provided: Adult ED
[2021-10-17 11:15] LABS: Albumin Level 4.2 gm/dl (3.4-5.0); BUN Creatinine Ratio 21.3 (10-20); Bilirubin Direct 0.1 mg/dl (0-0.2); Bilirubin,Total 0.6 mg/dl (0.2-1.0); Calcium 9.4 mg/dl (8.5-10.1); Creatinine Clr Calc Pharmacy 23.7 ml/min; Est GFR (African American) 37.6 ml/min; Est GFR (Non-African American) 32.4 ml/min; Magnesium 2.7 mg/dl (1.7-2.4); Potassium 4.5 mmol/L (3.5-5.1); Total Protein 7.3 gm/dl (6.0-8.3)
[2021-10-17 11:20] LABS: Troponin I High Sensitivity 53.7 pg/ml (0-20)
[2021-10-17] MEDS ORDERED: OPTIRAY 300 500mL IV ONE (11:47)
--- NOTE | 2021-10-17 11:47 | XRay Report ---
XR chest 1V portable CLINICAL HISTORY: Left-sided chest pain. COMPARISON STUDY: Chest CT October 02, 2021. Chest radiograph October 08, 2021. FINDINGS: There are median sternotomy wires. Cardiomegaly is unchanged. There is no evidence for pulm onary edema. Small bilateral pleural effusions with persistent bibasilar opacities are noted. Old lef t-sided rib fractures are incidentally noted. IMPRESSION: 1. Small bilateral pleural effusions with associated bibasilar opacities which likely reflect atelect asis. Consolidation could appear similar. 2. Cardiomegaly. No evidence for pulmonary edema. ACT 112: Negative or not required by law. Electronically signed by: Adam Mujica M.D. 10/17/2021 11:46 AM
--- NOTE | 2021-10-17 12:01 | CT Scan Report ---
CT angio chest PE protocol CLINICAL HISTORY: PE left chest pain, tearing to back TECHNIQUE: Multidetector row helical CT of the chest was performed with angiographic protocol. Pham l and sagittal reformations were obtained. Coronal and sagittal MIPS were obtained from the axial alcides a set and were submitted for review. Automated dose lowering techniques and/or adjustment according to patient size were utilized for this exam. CT DOSE: 581.40 mGy.cm Comparison: Comparison is made to CT chest 10/02/2021 FINDINGS: Lungs and pleura: Emphysema is seen. There are small bilateral pleural effusions. Rounded foci are no june in the bilateral lung bases. Heart and pericardium: There is cardiomegaly without evidence of pericardial effusion. Vessels: No evidence of pulmonary embolism. Mediastinum and randy: Unremarkable. Chest wall and lower neck: Unremarkable. Abdomen: A moderate hiatal hernia is seen. Bones: Degenerative changes of the thoracic spine. Old healed rib fractures are seen. Multilevel old compression deformities are seen. IMPRESSION: 1. No evidence of pulmonary embolism. 2. Cardiomegaly is noted. 3. Small bilateral pleural effusions. 4. Rounded densities in the bilateral lung bases may represent round atelectasis. The right lower manju ng focus is better defined than in prior exam, the left lower lung focus is unchanged from 2019. Foll ow-up to resolution is recommended to exclude underlying mass. 5. Emphysema. ACT 112: Negative or not required by law. Electronically signed by: Arsenio Mehta M.D. 10/17/2021 11:59 AM
[2021-10-17] MEDS ORDERED: HYDROmorphone INJ 0.5 MG/0.5 ML SYR IV STA (12:24)
--- NOTE | 2021-10-17 12:27 | CT Scan Report ---
CT OF THE ABDOMEN AND PELVIS WITH CONTRAST CLINICAL HISTORY: left chest/flank pain COMPARISON STUDY: CT of the abdomen and pelvis October 02, 2021. TECHNIQUE: Following IV administration of 120 mL of Optiray, axial images of the abdomen and pelvis w ere obtained from the lung bases to the proximal femurs. Images were reviewed in the axial, sagittal, and coronal planes. IV contrast was administered without complication. Automated exposure control w as utilized for the study. A dose lowering technique was utilized adhering to the principles of HARJINDER Mendoza. FINDINGS: Please note that the chest CT will be reported separately. Small left and trace right pleur al effusions with associated bibasilar opacities are noted. The opacities favor atelectasis. A modera te sized hiatal hernia is noted. There is no pneumatosis, free air or portal venous gas. Liver, splee n, adrenal glands and pancreas are unremarkable. There is no biliary or pancreatic ductal dilatation. No peripancreatic or pericholecystic stranding is noted. Moderate bilateral renal cortical thinning is noted. No hydronephrosis. Colonic diverticulosis is noted without evidence for acute diverticuliti s. There is no evidence for a bowel obstruction. There is trace presacral stranding. Apparent rectal wall thickening is noted. This is probably artifactual. No fluid collection is suggest an abscess. No abdominal or pelvic lymphadenopathy is present. Old left pelvic ring and sacral fractures are noted. No acute fractures within the visualized skeletal structures. There is also an old right iliac bone fracture. IMPRESSION: 1. No bowel obstruction. Trace presacral stranding. Possible rectal wall thickening, likely artifactu al. Proctitis could appear similar although is considered less likely. 2. Small left and trace right pleural effusions with associated bibasilar opacities which likely refl ect atelectasis. 3. Moderate-sized hiatal hernia. ACT 112: Negative or not required by law. Electronically signed by: Adam Mujica M.D. 10/17/2021 12:26 PM
[2021-10-17 12:45] LABS: Appearance Urine Clear (Clear); Bacteria Urine Automated 4+ (Negative); Bilirubin Urine Negative (Negative); Blood Urine 1+ (Negative); Color Urine Yellow; Epithelial Cell Urine Auto 0-5 /lpf (0-5); Glucose Urine UA Negative (Negative); Ketones Urine Trace (Negative); Leukocyte Esterase Urine 1+ (Negative); Nitrite Urine Positive (Negative); Protein Urine 2+ (Negative); RBC Urine Automated 0-4 /hpf (0-4); Specific Gravity Urine 1.043 (1.000-1.030); Urobilinogen Urine Negative (Negative)
[2021-10-17] MEDS ORDERED: cefTRIAXone SODIUM 1,000 MG/50 ML BAG IV STA (13:00)
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
[2021-10-17] MEDS ORDERED: NORMOSOL-R 1,000 ML IV SCH (14:15)
[2021-10-17] MEDS: LIDOCAINE 5% 1 PATCH TD SCH (14:59)
[2021-10-17] MEDS ORDERED: ONDANSETRON INJ 2 MG/ML 2 ML VIAL IV PRN (17:34)
[2021-10-17] MEDS ORDERED: ACETAMINOPHEN 325 MG TAB PO PRN (17:34)
[2021-10-17] MEDS ORDERED: POLYETHYLENE (MIRALAX) 17 GM PACK PO PRN (17:34)
[2021-10-17] MEDS: PHENYTOIN SODIUM ER 100 MG CAP PO SCH ×2 (18:41→20:02)
[2021-10-17] MEDS: APIXABAN 2.5 MG TAB PO SCH (20:01)
[2021-10-17] MEDS: MEMANTINE HCL 10 MG TAB PO SCH (20:02)
[2021-10-18] MEDS: LEVOTHYROXINE SODIUM 25 MCG TABLET PO SCH (06:32)
[2021-10-18] MEDS: METOPROLOL SUCC 25MG EXT REL TAB PO SCH (08:47)
[2021-10-18] MEDS: ROSUVASTATIN CALCIUM 5 MG TAB PO SCH (08:47)
[2021-10-18] MEDS: PHENYTOIN SODIUM ER 100 MG CAP PO SCH ×3 (08:47→21:10)
[2021-10-18] MEDS: DONEPEZIL HCL 10 MG TAB PO SCH (08:48)
[2021-10-18] MEDS: APIXABAN 2.5 MG TAB PO SCH ×2 (08:48→21:09)
[2021-10-18] MEDS: CHOLECALCIFEROL 1,000 UNITS 25 MCG TAB PO SCH (08:48)
[2021-10-18] MEDS: DOCUSATE SODIUM 100 MG CAP PO SCH (08:48)
[2021-10-18] MEDS: FUROSEMIDE 20 MG TAB PO SCH (08:48)
[2021-10-18] MEDS: ASPIRIN 81 MG ECTAB PO SCH (08:48)
[2021-10-18] MEDS: MEMANTINE HCL 10 MG TAB PO SCH ×2 (08:48→21:10)
[2021-10-18] MEDS: PANTOprazole 40 MG TAB PO SCH (08:48)
[2021-10-18] MEDS: LIDOCAINE 5% 1 PATCH TD SCH (08:49)
--- NOTE | 2021-10-18 09:00 | Hospitalist Progress Note ---
Date of Service October 18, 2021 Assessment & Plan (1) Pyelonephritis: Plan: - UA with evidence of infection and b/l CVA tenderness on presentation, increased urinary frequency, -no evidence of concurrent obstruction or hydro on CT. - Rocephin prior urine cx grew E. Coli sensitive to everything but Ampicillin and Augmentin. - Blood and urine cx ordered. - With CKD4, also has reduced EF 45-50% but appears clinically dry. Has two small chronic pleural effusions which are unchanged. - Gentle IVF with Normosol 80 cc/hr x 1 L. (2) Chest pain: Plan: - Recurrent similar to presentation on last admission which was extensively worked up, felt not to be cardiac in nature by cardiology. - Troponin remained in 30s range when trended a that time. Echo then unchanged from previous, without pericarditis or pericardial effusion. - CTA today negative for acute process, no PE or change in small b/l chronic effusions. - Trop 53--in setting of CKD and pleuritic chest pain-- - ESR 40 and CRP 5.5. - Will use Tylenol and lidocaine patch now for pain control. Can add on IV Dilaudid prn at low doses if his pain is severe and not adequately controlled. - (3) CKD (chronic kidney disease) stage 4, GFR 15-29 ml/min: Plan: - Cr 1.83, Cr Cl 23.7, GFR 32, about baseline for this patient. - Gentle IVF as above with 1 L cap. - Avoid nephrotoxins and renally dose (4) HFrEF (heart failure with reduced ejection fraction): Plan: - Echo on previous admission 10/01 showed stable EF 45-50%, borderline reduced LVSF, LVH, LV global hypokinesis. Mild MR. (5) Pleural effusion: Plan: - Small, b/l, chronic. Was on 20 mg Lasix for three days at discharge earlier this month, no longer taking. - Likely not contributing to recurrent chest pain. (6) CAD (coronary artery disease), [place] coronary artery: Plan: - s/p 4V CABG in 2017 complicated by aucte renal failure requiring dialysis for several months. - Continue metoprolol, stain, daily ASA. (7) Atrial fibrillation: Plan: - Paroxysmal. - Continue metoprolol and Eliquis. (8) Benign essential hypertension: Plan: - Continue metoprolol. - Normotensive in ED. (9) Factor V Leiden: Plan: - Previous DVT. - Continue on Eliquis. (10) Seizure disorder: Plan: - No recent seizure activity. - Continue phenytoin 100 mg TID. (11) Anemia: Plan: - 2/2 CKD, Hgb 13.8, at baseline and stable. No concern for acute blood loss. (12) Hypothyroidism: Plan: - Continue levothyroxine. (13) Dementia: Plan: - Continue donepezil and Plan - Admit to med/surg. - SCDs and Eliquis for VTE ppx. - Full Code. Admission and Anticipated Discharge Date Admission Date: October 17, 2021 Subjective Pt is awake and alert does have some persistent abdominal pain but mostly left sided, does have some confusion Review of Systems Review of Systems: Mild distress and fatigue no headache, no visual changes no speech or swallowing issues no chest pain, pressure or palpitations no shortness of breath, cough or wheezes Left-sided abdominal pain, no nausea or vomiting no dysuria, hematuria or frequency no focal joint pain or swelling no back pain, CVA tenderness or radicular pain no bruising, bleeding or rashes no focal signs of weakness or numbness or altered sensation no complaints of anxiety or depression.. Physical Exam Physical Exam: The patient appeared thin but well nourished and normally developed. Vital signs as documented. Head exam is normocephalic atraumatic Neck is without JVD, thyromegaly, or carotid bruits. Lungs are clear to auscultation, no focal loss of breath sounds Cardiac exam, Rhythm is regular.. No murmurs, rubs or gallops. Abdominal exam reveals normal bowel sounds, soft left sided tenderness Extremities are nonedematous and both pedal pulses are present Neurologic exam is alert and oriented, no focal loss of strength or sensation Skin is without bruises or rashes Psychologically is without concerns for anxiety or depression.. Results & Data Results & Data ([facility]) Vital Signs (Past 12 Hours) Vital Signs Temp Pulse Resp BP Pulse Ox O2 Del Method O2 Flow Rate 10/18/21 07:33 Nasal Cannula 2 10/18/21 07:23 98.1 F 78 16 106/72 98 Nasal Cannula 10/17/21 21:31 98.6 F 85 14 110/72 99 Nasal Cannula 2 PG Care Time/CCT Total # of Minutes Spent Total Time Spent with Patient: Total time spent is greater than 50% in coordination of care (as documented) at patient's floor/unit and/or counseling patient: Coding Level of Care Code 26065 Subseq Hosp Care Lvl 2 Diagnoses Pyelonephritis N12 Chest pain R07.9 CKD (chronic kidney disease) stage 4, GFR 15-29 ml/min N18.4 HFrEF (heart failure with reduced ejection fraction) I50.20 Pleural effusion J90 CAD (coronary artery disease), [place] coronary artery I25.10 Atrial fibrillation I48.91 Atrial fibrillation type: unspecified Benign essential hypertension I10 Factor V Leiden D68.51 Seizure disorder G40.909 Anemia D64.9 Hypothyroidism E03.9 Dementia F03.90 (1) Atrial fibrillation Atrial fibrillation type: unspecified Qualified Code(s): I48.91 - Unspecified atrial fibrillation
[2021-10-18] MEDS: cefTRIAXone SODIUM 1,000 MG in DEXTROSE 5% 50 ML IV SCH (14:45)
[2021-10-19] MEDS: LEVOTHYROXINE SODIUM 25 MCG TABLET PO SCH (06:20)
[2021-10-19] MEDS: METOPROLOL SUCC 25MG EXT REL TAB PO SCH (08:56)
[2021-10-19] MEDS: APIXABAN 2.5 MG TAB PO SCH ×2 (08:57→20:18)
[2021-10-19] MEDS: PANTOprazole 40 MG TAB PO SCH (08:57)
[2021-10-19] MEDS: ROSUVASTATIN CALCIUM 5 MG TAB PO SCH (08:57)
[2021-10-19] MEDS: CHOLECALCIFEROL 1,000 UNITS 25 MCG TAB PO SCH (08:57)
[2021-10-19] MEDS: LIDOCAINE 5% 1 PATCH TD SCH (08:57)
[2021-10-19] MEDS: DOCUSATE SODIUM 100 MG CAP PO SCH (08:57)
[2021-10-19] MEDS: FUROSEMIDE 20 MG TAB PO SCH (08:57)
[2021-10-19] MEDS: PHENYTOIN SODIUM ER 100 MG CAP PO SCH ×3 (08:57→20:19)
[2021-10-19] MEDS: MEMANTINE HCL 10 MG TAB PO SCH ×2 (08:57→20:19)
[2021-10-19] MEDS: ASPIRIN 81 MG ECTAB PO SCH (08:57)
[2021-10-19] MEDS: DONEPEZIL HCL 10 MG TAB PO SCH (08:57)
[2021-10-19] MEDS: cefTRIAXone SODIUM 1,000 MG in DEXTROSE 5% 50 ML IV SCH (15:26)
--- NOTE | 2021-10-19 16:16 | Hospitalist Progress Note ---
Date of Service October 19, 2021 Assessment & Plan (1) Pyelonephritis: Plan: - UA with evidence of infection and b/l CVA tenderness on presentation, increased urinary frequency, - no evidence of concurrent obstruction or hydro on CT. - Blood culture unable to be taken. Urine culture - E. coli resistant to ampicillin and Augmentin, plan to switch to cefdinir for 14 day course tomorrow (2) Hypoxia: Plan: Ongoing hypoxia which is really the main reason to continue inpatient admission at this time. Unclear etiology. Try to wean, aim O2 sats > 90%. If unable to wean off O2 will get CXR and 2 step tomorrow - ?pulmonary edema with IV fluids given prior in admission. (3) Chest pain: Plan: - Recurrent similar to presentation on last admission which was extensively worked up, felt not to be cardiac in nature by cardiology. - Troponin remained in 30s range when trended a that time. Echo then unchanged from previous, without pericarditis or pericardial effusion. - CTA today negative for acute process, no PE or change in small b/l chronic effusions. - Trop 53--in setting of CKD and pleuritic chest pain-- - ESR 40 and CRP 5.5. (4) CKD (chronic kidney disease) stage 4, GFR 15-29 ml/min: Plan: - Cr 1.83, Cr Cl 23.7, GFR 32, about baseline for this patient. - Repeat BMP tomorrow. No further IV fluids - Avoid nephrotoxins and renally dose (5) HFrEF (heart failure with reduced ejection fraction): Plan: - Echo on previous admission 10/01 showed stable EF 45-50%, borderline reduced LVSF, LVH, LV global hypokinesis. Mild MR. - Continue Lasix 20mg PO daily (6) Pleural effusion: Plan: - Small, b/l, chronic. Was on 20 mg Lasix for three days at discharge earlier this month, no longer taking. - Likely not contributing to recurrent chest pain. (7) CAD (coronary artery disease), [place] coronary artery: Plan: - s/p 4V CABG in 2017 complicated by aucte renal failure requiring dialysis for several months. - Continue metoprolol, stain, daily ASA. (8) Atrial fibrillation: Plan: - Paroxysmal. - Continue metoprolol and Eliquis. (9) Benign essential hypertension: Plan: - Continue metoprolol. - Normotensive in ED. (10) Factor V Leiden: Plan: - Previous DVT. - Continue on Eliquis. (11) Seizure disorder: Plan: - No recent seizure activity. - Continue phenytoin 100 mg TID (12) Anemia: Plan: - 2/2 CKD, Hgb 13.8, at baseline and stable. No concern for acute blood loss. (13) Hypothyroidism: Plan: - Continue levothyroxine. (14) Dementia: Plan: - Continue donepezil and memnatine Plan - Admit to med/surg. - SCDs and Eliquis for VTE ppx. - Full Code. Admission and Anticipated Discharge Date Admission Date: October 17, 2021 Subjective Patient awake and alert but does not normally use oxygen at home. CVA tenderness much improved. No urinary symptoms. Updated his over the phone. Review of Systems Review of Systems: All systems reviewed & are unremarkable except as noted in Subjective Physical Exam Constitutional: well developed; + not well nourished and no acute distress Neck: trachea midline, no thyromegaly Cardiovascular: RRR, no murmur, no edema Gastrointestinal (Abdomen): normal bowel sounds, soft, nontender, no hepatosplenomegaly Skin: no rashes, warm and dry Neurologic: moves all extremities and awake; not confused Psychiatric: A+Ox3, euthymic affect Results & Data Results & Data ([facility]) Vital Signs (Past 12 Hours) Vital Signs Temp Pulse Resp BP Pulse Ox O2 Del Method O2 Flow Rate 10/19/21 07:30 Nasal Cannula 2 10/19/21 07:31 36.7 C 78 16 115/71 92 Nasal Cannula 2 PG Care Time/CCT Total # of Minutes Spent Total Time Spent with Patient: Total time spent is greater than 50% in coordination of care (as documented) at patient's floor/unit and/or counseling patient: Coding Level of Care Code 15257 Subseq Hosp Care Lvl 2 Diagnoses Pyelonephritis N12 Hypoxia R09.02 Chest pain R07.9 CKD (chronic kidney disease) stage 4, GFR 15-29 ml/min N18.4 HFrEF (heart failure with reduced ejection fraction) I50.20 Pleural effusion J90 CAD (coronary artery disease), [place] coronary artery I25.10 Atrial fibrillation I48.91 Atrial fibrillation type: unspecified Benign essential hypertension I10 Factor V Leiden D68.51 Seizure disorder G40.909 Anemia D64.9 Hypothyroidism E03.9 Dementia F03.90 (1) Atrial fibrillation Atrial fibrillation type: unspecified Qualified Code(s): I48.91 - Unspecified atrial fibrillation
--- NOTE | 2021-10-19 17:33 | XRay Report ---
XR chest 1V portable HISTORY: continued hypoxia COMPARISON: Chest 10/17/2021. FINDINGS: No pneumothorax. Small bilateral pleural effusions and bibasilar densities persist. There i s mild interstitial thickening which has progressed in the interval. This suggests mild congestive ch paul. The heart remains enlarged. There are poststernotomy changes. Old, healed left-sided rib fractu res again noted. IMPRESSION: 1. Interval progression of the mild pulmonary vascular congestion. 2. Small bilateral pleural effusions and bibasilar densities persist. ACT 112: Negative or not required by law. Electronically signed by: Nadeem Barahona M.D. 10/19/2021 5:32 PM
[2021-10-20] MEDS: LEVOTHYROXINE SODIUM 25 MCG TABLET PO SCH (05:41)
[2021-10-20] MEDS: PHENYTOIN SODIUM ER 100 MG CAP PO SCH (08:27)
[2021-10-20 08:34] LABS: Basophils # (auto) 0.01 K/uL (0-0.2); Basophils % (auto) 0.2 %; Eosinophils # (auto) 0.25 K/uL (0-0.50); Hematocrit (blood only) 39.6 % (40.1-51.0); Hemoglobin 13.1 g/dl (14.0-18.0); Immature Granulocytes # (auto) 0.01 K/uL (0.00-0.02); Immature Granulocytes % (auto) 0.2 %; Lymphocytes # (auto) 0.74 K/uL (1.2-3.4); Lymphocytes % (auto) 11.7 %; Mean Corpuscular Hemoglobin 32.3 pg (25.0-34.0); Mean Corpuscular Hgb Conc 33.1 g/dL (32.0-36.0); Mean Corpuscular Volume 97.5 fL (80.0-100.0); Mean Platelet Volume 8.8 fL (9.4-12.4); Monocytes # (auto) 0.59 K/uL (0.24-0.82); Monocytes % (auto) 9.4 %; Neutrophils % (auto) 74.5 %; Platelet Count 239 K/uL (130-400); RDW Coefficient of Variation 13.6 % (11.5-14.5); RDW Standard Deviation 48.6 fL (36.4-46.3); Red Blood Count 4.06 M/uL (4.63-6.08)
[2021-10-20] MEDS: PANTOprazole 40 MG TAB PO SCH (08:41)
[2021-10-20] MEDS: ASPIRIN 81 MG ECTAB PO SCH (08:41)
[2021-10-20] MEDS: METOPROLOL SUCC 25MG EXT REL TAB PO SCH (08:41)
[2021-10-20] MEDS: ROSUVASTATIN CALCIUM 5 MG TAB PO SCH (08:41)
[2021-10-20] MEDS: APIXABAN 2.5 MG TAB PO SCH (08:41)
[2021-10-20] MEDS: CHOLECALCIFEROL 1,000 UNITS 25 MCG TAB PO SCH (08:41)
[2021-10-20] MEDS: MEMANTINE HCL 10 MG TAB PO SCH (08:41)
[2021-10-20] MEDS: LIDOCAINE 5% 1 PATCH TD SCH (08:41)
[2021-10-20] MEDS: FUROSEMIDE 20 MG TAB PO SCH (08:42)
[2021-10-20] MEDS: DONEPEZIL HCL 10 MG TAB PO SCH (08:42)
[2021-10-20] MEDS: DOCUSATE SODIUM 100 MG CAP PO SCH (08:42)
[2021-10-20 09:00] LABS: BUN Creatinine Ratio 15.7 (10-20); Calcium 8.6 mg/dl (8.5-10.1); Creatinine Clr Calc Pharmacy 24.3 ml/min; Est GFR (African American) 40.5 ml/min; Potassium 4.2 mmol/L (3.5-5.1)
[2021-10-20] MEDS ORDERED: CEFDINIR 300 MG CAP PO SCH (10:45)
--- NOTE | 2021-10-20 13:15 | Discharge Summary ---
Date of Service October 20, 2021 Admission HPI Per Admitting Provider Davian Valentin is an 85-year-old male with past medical history significant for CAD s/p 4 vessel CABG, A. fib on Eliquis, CKD, hypertension, hyperlipidemia, factor V Leiden, dementia, seizure disorder, and hiatal hernia who presents today with left-sided chest wall pain. He was admitted to our facility from for this chest pain. During that admission, he had serial troponin and EKGs which remained low, echo remained unchanged without evidence of pericardial effusion or pericarditis ,therefore ACS or other cardiac causes for his chest pain ruled out. He does have a large hiatal hernia which was susp ected to be a potential cause of his pain, therefore he was started on Protonix. He has chronic bilateral pleural effusions which was too small for thoracentesis, also felt to be unlikely positive chest pain. He was on Lasix for short course. Ultimately, chest pain was thought to be due to pleurisy and he was on a short course of NSAIDs and steroids. The steroids did initially help, however his pain is back. It is exacerbated with respirations and chest wall palpation. It is sharp and goes into his back, but does not go down to his shoulder/arm/neck/jaw. This chest pain does feel very similar to what it was 2 weeks ago on admission. He is without fever chills, shortness of breath at rest, abdominal pain, nausea, vomiting, diarrhea. Has been urinating his bowels normally, however yesterday did spend 3 and half hours on the commode and had to strain to have a BM. gave him milk og magnesia and he was able to have a large BM. No melena or hematochezia. No hematuria, dysuria, or urinary retention, however patient does state he has been urinating much more frequently despite decreased appetite and poor hydration. Upon presentation to ED, vital signs are in normal limits and he is hemodynamically stable, afebrile and 94% on RA. His urine is positive for nitrates, 1+ leuk esterase, 1030 WBCs, and 4+ bacteria. Labs significant for troponin of 53.7, magnesium 2.7, and a mild stable anemia with Hgb 13.8. Renal function is at baseline, CR 1.83, GFR 32.4. No electrolyte abnormalities or transaminitis. Principal Diagnosis Acute pyelonephritis Musculoskeletal chest pain Discharge Exam Constitutional well developed; + not well nourished and no acute distress Neck trachea midline, no thyromegaly Cardiovascular RRR, no murmur, no edema Gastrointestinal (Abdomen) normal bowel sounds, soft, nontender, no hepatosplenomegaly Skin no rashes, warm and dry Neurologic moves all extremities and awake; not confused Psychiatric A+Ox3, euthymic affect Genitourinary no CVA tenderness Discharge Data Allergies Allergy/AdvReac Type Severity Reaction Status Date / Time atorvastatin Allergy Unknown Unknown Verified 10/17/21 09:37 heparin Allergy Unknown ? Heparin Verified 10/17/21 09:37 Induced Thrombocytopenia versus DIC Penicillins Allergy Unknown RASH AND Verified 10/17/21 09:37 ITCHING simvastatin Allergy Unknown Unknown Verified 10/17/21 09:37 ciprofloxacin [From Cipro] Allergy Verified 10/17/21 09:37 doxycycline Allergy Verified 10/17/21 09:37 oxycodone Allergy Verified 10/17/21 09:37 Rxtqcik-AFV-TgE Reductase AdvReac Unknown ?SEIZURES Verified 10/17/21 09:37 Inhibitor [Cfndlvf-Gpb-Ajr Reductase Inhibitor] Consultations 10/17/21 13:05 ED Decision to Admit Stat Ordered Studies 10/17/21 11:14 CT Abd and Pelvis [CT abd pelvis IV con only] Stat IMPRESSION: 1. No bowel obstruction. Trace presacral stranding. Possible rectal wall thickening, likely artifactual. Proctitis could appear similar although is considered less likely. 2. Small left and trace right pleural effusions with associated bibasilar opacities which likely reflect atelectasis. 3. Moderate-sized hiatal hernia. CT angio chest PE protocol Stat IMPRESSION: 1. No evidence of pulmonary embolism. 2. Cardiomegaly is noted. 3. Small bilateral pleural effusions. 4. Rounded densities in the bilateral lung bases may represent round atelectasis. The right lower lung focus is better defined than in prior exam, the left lower lung focus is unchanged from 2019. Follow-up to resolution is recommended to exclude underlying mass. 5. Emphysema. Hospital Course (1) Pyelonephritis: Davian Valentin is an 85 year old male admitted to [facility] from October 17 -2021 due to left sided chest and back pain. His positive urine culture with left flank pain was consistent with an acute pyelonephritis. This was treated with ceftriaxone during his inpatient stay. He will be switched to cefdinir for total antibiotic course of 14 days on discharge. He is still having persistent chest pain however this is previously being worked up by cardiology and CT angiogram on this admission was negative for pulmonary embolism or aortic dissection. Suspect this is musculoskeletal in nature and possibly originating from his back. No specific treatment was started for this but could consider physical therapy referral at his follow-up appointment if still persistent. (2) Hypoxia: (3) Chest pain: (4) CKD (chronic kidney disease) stage 4, GFR 15-29 ml/min: (5) HFrEF (heart failure with reduced ejection fraction): (6) Pleural effusion: (7) CAD (coronary artery disease), [place] coronary artery: (8) Atrial fibrillation: (9) Benign essential hypertension: (10) Factor V Leiden: (11) Seizure disorder: (12) Anemia: (13) Hypothyroidism: (14) Dementia: Total Time Total Time Spent Total Time Spent (In Minutes): 45 Discharge Plan Discharge Items Patient Disposition: Home - Self-Care Reason For Visit: PYELONEPHRITIS Discharge Diagnosis: Acute pyelonephritis Musculoskeletal chest pain Activity: Resume your previous activity Non-emergency contact: Primary Care Provider Call non-emergency contact if: you have any medication questions and your symptoms worsen Follow-up/Referrals: Miguel Mishra DO [Primary Care Provider] - Diet: Heart Healthy Diet Texture: Easy to Chew Addtl Attending Provider Instructions: You were admitted to [facility] from October 17 -2021 due to left sided chest and back pain. You left flank pain and positive urine culture is consistent with an acute kidney infection. You were treated for this with ceftriaxone (antibiotic) during your inpatient stay. This will be switched to a similar antibiotic called cefdinir on discharge. Please follow up with your primary care physician for your ongoing chest pain. This appears to be musculoskeletal in nature and possible originating from your back. No specific treatment has been started for this but consider physical therapy referral at your follow up appointment. Pending Studies at Discharge: No Stand-Alone Forms: [facility], Smoking Cessation Medications and DC Order Prescriptions: New cefdinir 300 mg Capsule 300 mg PO DAILY 10 Days Qty: 10 0RF Continued aspirin [Ecotrin Low Strength] 81 mg tablet,delayed release (DR/EC) 81 mg PO QAM cholecalciferol (vitamin D3) 1,000 unit capsule 1,000 units PO QAM multivitamin tablet 1 tab PO HS Eliquis 2.5 mg tablet 2.5 mg PO BID Qty: 180 2RF rosuvastatin 5 mg tablet 5 mg PO QAM Qty: 90 2RF metoprolol succinate [Toprol XL] 25 mg tablet extended release 24 hr 25 mg PO QAM Qty: 90 2RF memantine 10 mg tablet See Rx Instructions .ROUTE .COMPLEX Qty: 180 3RF Dose Instruction: TAKE 1 TABLET TWICE A DAY Rx Instructions: TAKE 1 TABLET TWICE A DAY donepezil 10 mg tablet See Rx Instructions .ROUTE .COMPLEX Qty: 90 3RF Dose Instruction: TAKE 1 TABLET EVERY MORNING Rx Instructions: TAKE 1 TABLET EVERY MORNING phenytoin sodium extended 100 mg capsule 100 mg PO TID Qty: 270 1RF levothyroxine 25 mcg tablet 25 mcg PO DAILY Qty: 30 2RF docusate sodium 100 mg capsule 100 mg PO QAM Qty: 10 acetaminophen [Tylenol Extra Strength] 500 mg Tablet 500 mg PO UD PRN (Reason: Pain) pantoprazole 40 mg Tablet,Delayed Release (Dr/Ec) 40 mg PO QAM Qty: 30 5RF furosemide [Lasix] 20 mg tablet 20 mg PO QAM Qty: 3 0RF Rx Instructions: start AM of 10/05/21. Discharge Orders: Discharge Order (Routine); Ordered 10/20/21 Ordered By: Rafael Castillo Admission Data Admit Date/Time: 10/17/21 13:16 Attending Provider: Rafael Castillo Admit Provider: Rafael Castillo Primary Care Provider: Miguel Mishra Other Providers: Rafael Castillo Other Interventions: Discharge Summary Assessment (RN) Last Done: 10/20/21 13:44 Coding Level of Care Code D/C DAY MANAGEMENT >30 MINS Diagnoses Pyelonephritis N12 Hypoxia R09.02 Chest pain R07.9 CKD (chronic kidney disease) stage 4, GFR 15-29 ml/min N18.4 HFrEF (heart failure with reduced ejection fraction) I50.20 Pleural effusion J90 CAD (coronary artery disease), [place] coronary artery I25.10 Atrial fibrillation I48.91 Atrial fibrillation type: unspecified Benign essential hypertension I10 Factor V Leiden D68.51 Seizure disorder G40.909 Anemia D64.9 Hypothyroidism E03.9 Dementia F03.90
--- NOTE | 2021-10-20 20:19 | XRay Report ---
XR chest 1V portable CLINICAL HISTORY: hypoxia TECHNIQUE: Single frontal radiograph of the chest was obtained. Comparison: Comparison is made to chest radiograph 10/19/[address] chest 10/17/2021 FINDINGS: Median sternotomy wires are unchanged. Cardiomegaly is noted. Bibasilar densities are again noted in the lungs. Likely small left pleural effusion and possible trace right pleural effusion. IMPRESSION: Stable cardiomegaly. Bilateral pleural effusions and airspace opacities are similar in extent to prio r exam. Findings may represent the foci of rounded atelectasis seen on prior CT. ACT 112: Negative or not required by law. Electronically signed by: Arsenio Mehta M.D. 10/20/2021 8:18 PM
--- NOTE | 2021-10-21 11:24 | Electrocardiogram Report ---
Test Reason : Blood Pressure : / mmHG Vent. Rate : 088 BPM Atrial Rate : 088 BPM P-R Int : 000 ms QRS Dur : 132 ms QT Int : 396 ms P-R-T Axes : 000 066 264 degrees QTc Int : 479 ms Probably sinus Right bundle branch block Possible Inferior infarct (cited on or before 17-OCT-2021) T wave abnormality, consider lateral ischemia Abnormal ECG When compared with ECG of 03-OCT-2021 06:34, no change Confirmed by Jeffrey Hall ([id number]) on 10/21/2021 11:24:18 AM Referred By: ED Confirmed By:Sushant Hall
== END 2021-10-20 14:20 | disposition home or self-care (01) | DRG 690 ==
LOC: ED 10:12 → SUATTDRO 13:16 → 3W 13:16

== ENCOUNTER 2022-07-23 12:27 | Inpatient (IN) ==
--- NOTE | 2022-07-23 13:17 | Emergency Department Note ---
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 cultures were drawn. He was given Rocephin 2 g IV and was given a total of 1.5 L normal saline solution bolus. His lactate did improve from 2.6 down to 1.9 after the IV fluids. His hemoglobin was 9.2 which was decreased from 15.2 on 06/04/2022. Rectal exam revealed brown stool that was Hemoccult negative. No leukocytosis. Platelet count was normal. The patient states that he has been taking his Coumadin as prescribed, but his INR level is only 1.2. BUN and creatinine are stable he elevated at 59 and 1.51. AST elevated at 50, alk phos elevated at 121, but improved from previous. High-sensitivity troponin elevated at 39.8 with 2-hour repeat 39.5. This appears to be a chronic elevation for him. Lipase was normal. Urinalysis without evidence for infection. COVID was negative. Radiology studies were interpreted by myself and read by radiology as above. CT scans of the head and cervical spine without contrast were negative for acute intracranial abnormality, fracture, or subluxation. X-ray of the left shoulder showed no evidence for fracture or dislocation. CT scan of the chest with contrast showed small bilateral pleural effusions with underlying atelectasis. There was also an acute compression deformity of T8 superimposed upon old compression deformity with mild retropulsion. I did discuss this finding with the radiologist who felt that it was a stable fracture and mostly anterior. CT scan of the abdomen and pelvis with IV contrast showed an old fracture of the pelvis and sacrum, but no acute fractures. There is thickening of the descending colon which may represent infectious, inflammatory, or ischemic colitis. However, the patient does not have history or exam findings concerning for this. There is also complex material in the stomach which is nonspecific, but may represent blood products or food within the stomach after discussion with the radiologist. There is also complexity and the left pleural effusion which is increased from the prior exam, but nonspecific. No evidence for pneumomediastinum to suggest esophageal rupture or other acute abnormalities as the cause of the hematemesis. I had a meaningful discussion about this patient with Dr. Baker who agrees with my assessment and the treatment plan. Concern for upper GI bleed given the hematemesis x 2 and new anemia. The patient's lactate level was also elevated, but did improve after IV fluids. Initially the patient's temperature was 35.4 C axillary, but when rechecked rectally prior to admission, his temperature was 38.1 C rectally. He denies any cough or other URI/infectious symptoms. No obvious source for infection on above work-up. Blood cultures are pending and he did receive a dose of Rocephin. We feel the patient requires admission for further evaluation and treatment. I spoke with the on-call hospitalist who agreed to admit the patient for further evaluation and treatment. Please refer to their dictation for further details. The patient's care was transferred in stable condition. Impression & Plan Upper GI bleed, Anemia, On apixaban therapy, Fall, Compression fracture of T8 vertebra, Elevated lactic acid level, Fever, Injury of left shoulder, Abrasion of left shoulder, Abdominal pain Discharge Plan Visit Data Chief Complaint: Illness Stated Complaint: HEMATEMISIS ED Provider: Albin Baker ED Midlevel Provider: Kristyn Plata Discharge Problem: Upper GI bleed, Anemia, On apixaban therapy, Fall, Compression fracture of T8 vertebra, Elevated lactic acid level, Fever, Injury of left shoulder, Abrasion of left shoulder, Abdominal pain Patient Disposition: Admitted As Inpatient Condition: Good Discharge Instructions Interventions: ED Discharge Assessment Last Done: 07/23/22 22:02 Addendum July 24, 2022 15:14 HPI: The patient is an 86-year-old gentleman with a past medical history of CAD, history of CABG, CHF with reduced EF, A-fib on Eliquis, CKD, hypertension, hyperlipidemia, factor V Leiden, dementia, seizure disorder, hiatal hernia who presents emerged department via EMS for evaluation of acute onset hematemesis. The patient's symptoms occur in the setting of having a fall out of a chair 2 weeks ago where he fell onto his left shoulder causing abrasion and then 2 days ago fell over when he was attempting to throw something away and when he turned around lost his balance. That time he fell onto his left side again. The patient was seen by his PCP today for dizziness and 2 episodes of what the described as dark bloody clots of vomit/phlegm that he expelled earlier. She reports he vomited twice this morning with large amount of bright red blood. Otherwise the patient denies neck or back pain denies chest pain. He feels as though he may have increased shortness of breath from his baseline. They deny any fevers or diarrhea. He has had mild constipation recently. Denies any b lood in the stool or black stool. A/P: EKG did not demonstrate acute ischemia and demonstrates atrial fibrillation with heart rate in the 60s with right bundle branch block. WBC 8.2 with neutrophil predominance though no significant left shift. H/H 9.2/26.9 down from a hemoglobin of 15 in May. Creatinine 1.5 similar baseline values in setting of CKD. Initial lactic acid 2.6 however improving to 1.9 following IV fluid hydration. AST with mild elevation of 50, nonspecific and LFTs otherwise unremarkable. Initial high-sensitivity troponin 39.8, nonspecific and similar to prior in the setting of history of systolic heart failure. Procalcitonin was not elevated. UA without evidence of infection. COVID-19 RNA, CIERRA test was negative. CT of the head was negative for acute abnormality. CT of the C-spine negative for fracture or dislocation. CT of the chest demonstrates compression deformity of T8 superimposed on old compression deformity with mild retropulsion though no significant canal stenosis. LOIDA Plata did review imaging with radiology and note is made of complex material in the stomach that is nonspecific and may represent blood products given the patient's hematemesis. Bilateral pleural effusions are seen with underlying atelectasis. Question of thickening of desc ending colon which may reflect colitis though may be due to underdistention. The patient was noted to have a rectal temperature of 38.1 on reassessment. Given the patient's presentation and lab results concern for infection as well as upper GI bleed. He was treated with IV fluid hydration, though with caution given history of CHF. He was additionally administered 2 g of IV Rocephin empirically. IV Protonix and drip also ordered for concern for upper GI bleed. Blood pressure remained stable subsequently. LOIDA Plata reviewed the patient's case with hospitalist service who will admit the patient for further management. I was consulted by the Advanced Practice Provider.I performed a substantive portion of the visit.This includes aspects of the HPI, MDM, diagnostic interpretations, and disposition/plan. I discussed the case with the LOIDA, examined the patient, and agree with the findings and plan as documented in LOIDA Plata's note. Anemia Qualifiers: Anemia type: unspecified type Qualified Code(s): D64.9 - Anemia, unspecified Fall Qualifiers: Encounter type: initial encounter Qualified Code(s): W19.XXXA - Unspecified fall, initial encounter Compression fracture of T8 vertebra Qualifiers: Encounter type: initial encounter Qualified Code(s): S22.060A - Wedge compression fracture of T7-T8 vertebra, initial encounter for closed fracture Fever Qualifiers: Encounter type: initial encounter Injury of left shoulder Qualifiers: Encounter type: initial encounter Qualified Code(s): S49.92XA - Unspecified injury of left shoulder and upper arm, initial encounter Abrasion of left shoulder Qualifiers: Encounter type: initial encounter Qualified Code(s): S40.212A - Abrasion of left shoulder, initial encounter Abdominal pain Qualifiers: Abdominal location: generalized Qualified Code(s): R10.84 - Generalized abdominal pain
[2022-07-23] MEDS ORDERED: FAMOTIDINE 20MG IV PUSH 20 MG/5 ML SYR IV STA (13:24)
[2022-07-23] MEDS ORDERED: ONDANSETRON INJ 2 MG/ML 2 ML VIAL IV STA (13:24)
[2022-07-23] MEDS ORDERED: PANTOprazole 40 MG in SYRINGE 0 ML IV ONE (13:24)
[2022-07-23] MEDS ORDERED: SODIUM CHLORIDE 0.9% 500 ML IV SCH (13:30)
[2022-07-23 14:38] LABS: Basophils # (auto) 0.01 K/uL (0-0.2); Basophils % (auto) 0.1 %; Eosinophils # (auto) 0.01 K/uL (0-0.50); Eosinophils % (auto) 0.1 %; Hematocrit (blood only) 26.9 % (42.0-52.0); Hemoglobin 9.2 g/dl (14.0-18.0); Immature Granulocytes # (auto) 0.04 K/uL (0.01-0.20); Immature Granulocytes % (auto) 0.5 %; Lymphocytes # (auto) 0.45 K/uL (1.2-3.4); Lymphocytes % (auto) 5.4 %; Mean Corpuscular Hemoglobin 33.2 pg (25.0-34.0); Mean Corpuscular Hgb Conc 34.2 g/dL (32.0-36.0); Mean Corpuscular Volume 97.1 fL (80.0-100.0); Mean Platelet Volume 9.7 fL (9.4-12.4); Monocytes # (auto) 0.61 K/uL (0.11-0.59); Monocytes % (auto) 7.4 %; Neutrophils # (auto) 7.14 K/uL (1.40-6.50); Neutrophils % (auto) 86.5 %; Platelet Count 217 K/uL (130-400); RDW Standard Deviation 49.7 fL (36.4-46.3); Red Blood Count 2.77 M/uL (4.70-6.10); White Blood Count 8.26 K/ul (4.8-10.8)
--- NOTE | 2022-07-23 14:48 | XRay Report ---
XR shoulder LT min 2V routine CLINICAL HISTORY: trauma TECHNIQUE: 3 views of the left shoulder were obtained. Comparison: Comparison is made to scapula radiograph 10/07/2009 FINDINGS: There is no evidence of an acute fracture. Joint spaces are well-preserved. The overlying soft tissue s are unremarkable. Median sternotomy wires are seen. Old healed rib fractures are seen. IMPRESSION: No evidence of acute osseous injury. ACT 112: Negative or not required by law. Electronically signed by: Arsenio Mehta M.D. 07/23/2022 2:47 PM
[2022-07-23 14:50] LABS: Albumin Globulin Ratio 1.6 (0.9-2); Albumin Level 3.4 gm/dl (3.4-5.0); BUN Creatinine Ratio 39.1 (10-20); Bilirubin,Total 0.5 mg/dl (0.2-1.0); Calcium 8.2 mg/dl (8.6-10.3); Creatinine Clr Calc Pharmacy 27.1 ml/min; Est GFR (African American) 47.1 ml/min; Est GFR (Non-African American) 40.7 ml/min; Globulin 2.1 gm/dl (2.5-4.0); Potassium 4.8 mmol/L (3.5-5.1); Total Protein 5.5 gm/dl (6.0-8.3)
[2022-07-23 14:55] LABS: INR 1.2 (0.9-1.1); Partial Thromboplastin Time 27.3 Seconds (21.0-31.0); Prothrombin Time 12.5 Seconds (9.0-12.0)
[2022-07-23 14:56] LABS: Troponin I High Sensitivity 39.8 pg/ml (0-20)
[2022-07-23] MEDS ORDERED: SODIUM CHLORIDE 0.9% 1000ML 1,000 ML IV ONE (15:08)
[2022-07-23] MEDS ORDERED: OPTIRAY 320 100ml IV ONE (15:51)
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
[2022-07-23] MEDS ORDERED: cefTRIAXone SODIUM 2,000 MG/70 ML BAG IV STA (16:12)
--- NOTE | 2022-07-23 16:17 | CT Scan Report ---
CT cervical spine wo con CT DOSE: 2670.55 mGy.cm CLINICAL HISTORY: 86 years-old Male with Trauma. Acute neck pain status post fall COMPARISON: Chest CT of same day, CTA chest 9 1022. TECHNIQUE: Multiple axial CT images of the cervical spine were obtained without contrast. A dose low ering technique was utilized adhering to the principles of ALARA. FINDINGS: Multilevel degenerative changes. Chronic compression deformities at C7-T3. No acute cervica l spine fracture or subluxation identified. Chronic right mastoid effusion with partial mastoidectomy . Chronic healed nondisplaced left first rib fracture suggested. The cervical soft tissues appear unremarkable. The visualized lung apices appear clear. IMPRESSION: No acute cervical spine fracture or subluxation. ACT 112: Negative or not required by law. The above report was generated using voice recognition software. It may contain grammatical, syntax o r spelling errors. Electronically signed by: Shon York M.D. 07/23/2022 4:15 PM
[2022-07-23 16:35] LABS: Appearance Urine Clear (Clear); Bacteria Urine Automated Negative (Negative); Bilirubin Urine Negative (Negative); Blood Urine Negative (Negative); Color Urine Yellow; Glucose Urine UA Negative (Negative); Ketones Urine Negative (Negative); Leukocyte Esterase Urine Negative (Negative); Nitrite Urine Negative (Negative); Protein Urine 1+ (Negative); RBC Urine Automated 0-4 /hpf (0-4); Specific Gravity Urine 1.021 (1.000-1.030); Urobilinogen Urine Negative (Negative)
--- NOTE | 2022-07-23 16:39 | CT Scan Report ---
CT chest diagnostic w con CLINICAL HISTORY: Trauma, hematemesis TECHNIQUE: Multidetector row helical CT of the chest was performed with intravenous contrast. Coronal and sagittal reformations were obtained. Automated dose lowering techniques and/or adjustment accord ing to patient size were utilized for this exam. Comparison: Comparison is made to CT chest 10/17/2021 FINDINGS: Lungs and pleura: Small bilateral pleural effusions are seen with underlying atelectasis. Cardiomegal y is noted. Heart and pericardium: Cardiomegaly is seen with biatrial enlargement. Vessels: Mild atherosclerotic changes in the aorta and coronary arteries. Mediastinum and randy: Subcentimeter lymph nodes are seen. Chest wall and lower neck: Unremarkable. Abdomen: Unremarkable. Bones: T8 compression deformity is seen, acute, with approximately 3 mm retropulsion. Old healed rib fractures are seen. IMPRESSION: 1. Acute compression deformity of T8 superimposed upon old compression deformity with mild retropuls ion. 2. Small bilateral pleural effusions with underlying atelectasis. ACT 112: Negative or not required by law. Electronically signed by: Arsenio Mehta M.D. 07/23/2022 4:38 PM
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
[2022-07-23 17:22] LABS: Troponin I High Sensitivity 39.5 pg/ml (0-20)
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
[2022-07-23 19:16] LABS: C Reactive Protein 6.09 mg/dl (0-0.5)
[2022-07-23 20:17] LABS: Hematocrit (blood only) 23.9 % (42.0-52.0); Hemoglobin 8.1 g/dl (14.0-18.0)
[2022-07-23] MEDS ORDERED: SODIUM CHLORIDE 0.9% 1000ML 500 ML IV ONE (22:36)
[2022-07-23] MEDS: PANTOprazole 40 MG in SYRINGE 0 ML IV SCH (23:19)
[2022-07-23] MEDS: PHENYTOIN SODIUM ER 100 MG CAP PO SCH (23:19)
[2022-07-23] MEDS ORDERED: ACETAMINOPHEN 325 MG TAB PO PRN (23:51)
[2022-07-24 04:08] LABS: Basophils # (auto) 0.02 K/uL (0-0.2); Basophils % (auto) 0.2 %; Eosinophils # (auto) 0.01 K/uL (0-0.50); Eosinophils % (auto) 0.1 %; Hematocrit (blood only) 21.1 % (42.0-52.0); Hemoglobin 7.2 g/dl (14.0-18.0); Immature Granulocytes # (auto) 0.03 K/uL (0.01-0.20); Immature Granulocytes % (auto) 0.4 %; Lymphocytes # (auto) 1.02 K/uL (1.2-3.4); Lymphocytes % (auto) 12.6 %; Mean Corpuscular Hemoglobin 34.4 pg (25.0-34.0); Mean Corpuscular Hgb Conc 34.1 g/dL (32.0-36.0); Mean Platelet Volume 9.8 fL (9.4-12.4); Monocytes # (auto) 0.57 K/uL (0.11-0.59); Neutrophils # (auto) 6.46 K/uL (1.40-6.50); Neutrophils % (auto) 79.7 %; Platelet Count 157 K/uL (130-400); RDW Coefficient of Variation 14.3 % (11.5-14.5); RDW Standard Deviation 52.2 fL (36.4-46.3); Red Blood Count 2.09 M/uL (4.70-6.10); White Blood Count 8.11 K/ul (4.8-10.8)
[2022-07-24 04:49] LABS: Calcium 7.6 mg/dl (8.6-10.3); Potassium 4.6 mmol/L (3.5-5.1)
[2022-07-24] MEDS ORDERED: SODIUM CHLORIDE 0.9% 250 ML IV PRN (04:54)
[2022-07-24 04:56] LABS: BUN Creatinine Ratio 41.8 (10-20); Creatinine Clr Calc Pharmacy 21.9 ml/min; Est GFR (African American) 44.6 ml/min; Est GFR (Non-African American) 38.5 ml/min; Ovalocytes 1+
--- NOTE | 2022-07-24 08:21 | Hospitalist Progress Note ---
Date of Service July 24, 2022 Assessment & Plan (1) Acute blood loss anemia: Plan: Secondary to suspected upper GI bleed, care of this described below Hemoglobin 9.2->7.2, received 2u PRBCs with repeat Hgb 11.4, continue to trend Repeat CBC in AM Plan for EGD tomorrow if cleared by Cardiology (see below) (2) Upper GI bleed: Plan: Suspected upper GI bleed given bright red blood x2 today, Hemoccult negative in ER however patient has hemoglobin of 9.2 which is a rather sudden drop Transfuse as above if necessary Protonix 40 mg IV twice daily GI consulted and appreciate recommendations, due to Eliquis anticipate will have endoscopy in around 48 hours unless it is emergent, case discussed with Maribel Duckworth Hold Eliquis at this time as well as chemoprophylaxis for DVT (3) Sick sinus syndrome: Plan: History of, most recent Holter monitor report in April 2022 Cardiology note showed avg HR 50 with range 37-96 HR 40s today, EKG with junctional bradycardia (extremely small P waves noted on a few leads, could also be AFib with slow ventricular response) 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 Sanchez (4) Afib: Plan: Patient with a history of AFib and sick sinus syndrome, typically on Eliquis for anticoagulation, not on any rate/rhythm agents No evidence of decompensation or rapid ventricular response Holding Eliquis in the setting of acute GI bleed (5) CAD (coronary artery disease): Plan: NPO at this time save for antiseizure medication Resume medications as appropriate for CAD when no longer NPO (6) CKD (chronic kidney disease) stage 4, GFR 15-29 ml/min: Plan: Creatinine is at baseline at 1.58 today, with elevated BUN and BUN/creatinine ratio though this is in the setting of acute GI bleed (7) Seizure disorder: Plan: History of, no recent seizure episodes, continue phenytoin home dosing (8) Dementia: Plan: Has a history of delirium with hospitalization in the past, will continue to monitor with delirium precautions, patient's mentation is at baseline at this ti me (9) Hypothyroidism: Plan: Holding levothyroxine while NPO (10) HFrEF (heart failure with reduced ejection fraction): Plan: History of, with Echocardiogram 04/2022 with LVEF of 40-45% Continue medications as appropriate when no longer NPO Monitor daily intake/output and weights Plan Did receive a dose of ceftriaxone in the ER after having blood cultures (due to elevated lactate and temp of 38.1C), however no clear source of infection and procalcitonin is not elevated, urinalysis/CT chest without evidence of pneumonia. Suspect elevated lactate from GI bleed, improved with small bolus IVF 500cc. Continue to monitor with daily CBC and if infection declares itself will continue antibiotics. Admission and Anticipated Discharge Date Admission Date: July 23, 2022 Subjective Overnight Hgb drop to 7.2, ordered 2u PRBCs. HR while sleeping has been in low 40s, asymptomatic, high 40s when awake. He denies chest pain, palpitations, lightheadedness, SOB. Review of Systems Review of Systems: All systems reviewed & are unremarkable except as noted in Subjective Physical Exam Constitutional: WD/WN, vitals as above Respiratory: normal respiratory effort, lungs clear to auscultation Cardiovascular: Hr regular, bradycardic, no murmurs, no peripheral edema Gastrointestinal (Abdomen): normal bowel sounds, soft, nontender, no hepatosplenomegaly Skin: no rashes, warm and dry Psychiatric: Alert and oriented to self (this is baseline), euthymic affect Results & Data Results & Data Vital Signs (Past 12 Hours) Vital Signs Temp Pulse Pulse Resp BP BP Pulse Ox 07/24/22 07:23 37.1 C 56 L 16 106/53 L 100 07/24/22 06:53 37.1 C 58 L 16 112/47 L 100 07/24/22 06:48 37.0 C 52 L 18 104/53 L 95 07/24/22 06:38 36.8 C 53 L 18 106/53 L 100 07/24/22 06:30 37.2 C 59 L 18 110/50 L 95 07/24/22 06:20 37.2 C 60 18 110/49 L 94 07/24/22 03:00 37.2 C 58 L 20 113/55 L 100 07/23/22 23:33 61 07/23/22 22:53 07/23/22 22:41 38.0 C H 58 L 20 105/45 L 100 07/23/22 22:36 38.0 C H 58 L 20 105/45 L 98 07/23/22 22:02 60 19 102/45 L 93 07/23/22 21:26 58 L 19 99/50 L 92 O2 Del Method O2 Flow Rate 07/24/22 07:23 2 07/24/22 06:53 2 07/24/22 06:48 07/24/22 06:38 07/24/22 06:30 2 07/24/22 06:20 07/24/22 03:00 Nasal Cannula 07/23/22 23:33 07/23/22 22:53 Nasal Cannula 1 07/23/22 22:41 Nasal Cannula 1 07/23/22 22:36 Nasal Cannula 1 07/23/22 22:02 Room Air 07/23/22 21:26 Room Air PG Care Time/CCT Total # of Minutes Spent Total Time Spent with Patient: Total time spent is greater than 50% in coordination of care (as documented) at patient's floor/unit and/or counseling patient: Coding Level of Care Code 74138 SUB INP/OBS CARE 3/50MIN Diagnoses Acute blood loss anemia D62 Upper GI bleed K92.2 Sick sinus syndrome I49.5 Afib I48.91 CAD (coronary artery disease) I25.10 CKD (chronic kidney disease) stage 4, GFR 15-29 ml/min N18.4 Seizure disorder G40.909 Dementia F03.90 Hypothyroidism E03.9 HFrEF (heart failure with reduced ejection fraction) I50.20
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
[2022-07-24] MEDS: PANTOprazole 40 MG in SYRINGE 0 ML IV SCH ×2 (08:50→19:36)
[2022-07-24] MEDS: PHENYTOIN SODIUM ER 100 MG CAP PO SCH ×3 (08:50→19:37)
--- NOTE | 2022-07-24 13:57 | Electrocardiogram Report ---
Test Reason : Blood Pressure : / mmHG Vent. Rate : 061 BPM Atrial Rate : 131 BPM P-R Int : 000 ms QRS Dur : 124 ms QT Int : 466 ms P-R-T Axes : 000 066 -72 degrees QTc Int : 469 ms Atrial fibrillation Right bundle branch block Cannot rule out Inferior infarct (cited on or before 17-OCT-2021) T wave abnormality, consider anterolateral ischemia Abnormal ECG When compared with ECG of 31-OCT-2021 08:34, Questionable change in initial forces of Anteroseptal leads Confirmed by Guanako Sanchez ([id number]) on 07/24/2022 1:56:46 PM Referred By: REFERRED SELF Confirmed By:Guanako Sanchez
--- NOTE | 2022-07-24 14:00 | Electrocardiogram Report ---
Test Reason : Blood Pressure : / mmHG Vent. Rate : 049 BPM Atrial Rate : 046 BPM P-R Int : 000 ms QRS Dur : 132 ms QT Int : 500 ms P-R-T Axes : 000 067 211 degrees QTc Int : 451 ms Possible Junctional bradycardia Right bundle branch block Cannot rule out Inferior infarct , age undetermined T wave abnormality, consider anterolateral ischemia Abnormal ECG Confirmed by Guanako Sanchez ([id number]) on 07/24/2022 1:59:55 PM Referred By: REFERRED SELF Confirmed By:Guanako Sanchez
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
[2022-07-24 16:07] LABS: Hematocrit (blood only) 33.8 % (42.0-52.0); Hemoglobin 11.4 g/dl (14.0-18.0)
--- NOTE | 2022-07-25 07:48 | Hospitalist Progress Note ---
Date of Service July 25, 2022 Assessment & Plan (1) Upper GI bleed: Plan: Upper GI bleed with bright red blood emesis x2 on day of admission GI consulted and appreciate recommendations: Underwent EGD today and found to have 1 nonbleeding linear gastric ulcer, H. pylori biopsies collected Continue Protonix 40 mg p.o. daily (2) Acute blood loss anemia: Plan: Secondary to suspected upper GI bleed, care of this described above Hemoglobin 9.2->7.2, received 2u PRBCs, Hgb 10.4 today, continue to trend (3) Sick sinus syndrome: Plan: History of, most recent Holter monitor report in April 2022 Cardiology note showed avg HR 50 with range 37-96 Known history of regular junctional bradycardia with periods of AFib, pacemaker has been discussed with family in the past, patient has been Cardiology consulted and evaluated by Dr. Weeks, some question of risk versus benefit of anticoagulation for A-fib given fall history and GI bleed. We will discuss this with patient/his tomorrow to come up with a plan for discharge. No indication for pacemaker at this time given he is asymptomatic and given his age. (4) Afib: Plan: Patient with a history of AFib and sick sinus syndrome, typically on Eliquis for anticoagulation, not on any rate/rhythm agents No evidence of decompensation or rapid ventricular response Holding Eliquis in the setting of acute GI bleed, see above (5) CAD (coronary artery disease): Plan: History of CABG complicated by lower extremity embolization--post multiple toe amputations by Dr. Watkins Typically on aspirin, holding in the setting of GI bleed, follow-up outpatient (6) CKD (chronic kidney disease) stage 4, GFR 15-29 ml/min: Plan: Creatinine is at baseline at 1.6 today (7) Seizure disorder: Plan: History of, no recent seizure episodes, continue phenytoin home dosing (8) Dementia: Plan: Has a history of delirium with hospitalization in the past, will continue to monitor with delirium precautions, patient's mentation is at baseline at this time (9) Hypothyroidism: Plan: Continue levothyroxine (10) HFrEF (heart failure with reduced ejection fraction): Plan: History of, with Echocardiogram 04/2022 with LVEF of 40-45% Monitor daily intake/output and weights Plan Did receive a dose of ceftriaxone in the ER after having blood cultures (due to elevated lactate and temp of 38.1C), however no clear source of infection and procalcitonin is not elevated, urinalysis/CT chest without evidence of pneumonia. Suspect elevated lactate from GI bleed, improved with small bolus IVF 500cc. Continue to monitor with daily CBC and if infection declares itself will continue antibiotics. PT and OT consulted, recommending rehab. Case management placed referral to [facility], approaching medical stability for discharge as soon as tomorrow if patient's hemoglobin remains stable. Admission and Anticipated Discharge Date Admission Date: July 23, 2022 Subjective Patient without any acute events overnight. Continued to have junctional rhythm on monitor overnight, asymptomatic, otherwise hemodynamically stable. No further hematemesis, no bloody stools. Review of Systems Review of Systems: All systems reviewed & are unremarkable except as noted in Subjective Physical Exam Constitutional: WD/WN, vitals as above Respiratory: normal respiratory effort, lungs clear to auscultation Cardiovascular: HR regular, bradycardic, no murmurs, no peripheral edema Gastrointestinal (Abdomen): normal bowel sounds, soft, nontender, no hepatosplenomegaly Skin: no rashes, warm and dry Psychiatric: Alert and oriented to self (this is baseline), euthymic affect Results & Data Results & Data Vital Signs (Past 12 Hours) Vital Signs Temp Pulse Pulse Resp BP Pulse Ox O2 Del Method 07/25/22 07:37 46 L 07/25/22 03:57 36.8 C 48 L 16 118/50 L 94 Nasal Cannula 07/24/22 23:58 47 L 07/24/22 22:50 36.5 C 48 L 18 116/71 95 Nasal Cannula O2 Flow Rate 07/25/22 07:37 07/25/22 03:57 2 07/24/22 23:58 07/24/22 22:50 2 PG Care Time/CCT Total # of Minutes Spent Total Time Spent with Patient: Total time spent is greater than 50% in coordination of care (as documented) at patient's floor/unit and/or counseling patient: Coding Level of Care Code 30589 SUB INP/OBS CARE 3/50MIN Diagnoses Upper GI bleed K92.2 Acute blood loss anemia D62 Sick sinus syndrome I49.5 Afib I48.91 CAD (coronary artery disease) I25.10 CKD (chronic kidney disease) stage 4, GFR 15-29 ml/min N18.4 Seizure disorder G40.909 Dementia F03.90 Hypothyroidism E03.9 HFrEF (heart failure with reduced ejection fraction) I50.20
[2022-07-25 08:07] LABS: Basophils # (auto) 0.02 K/uL (0-0.2); Basophils % (auto) 0.4 %; Eosinophils # (auto) 0.18 K/uL (0-0.50); Eosinophils % (auto) 3.7 %; Hematocrit (blood only) 30.8 % (42.0-52.0); Hemoglobin 10.4 g/dl (14.0-18.0); Immature Granulocytes # (auto) 0.02 K/uL (0.01-0.20); Immature Granulocytes % (auto) 0.4 %; Lymphocytes # (auto) 0.53 K/uL (1.2-3.4); Lymphocytes % (auto) 10.9 %; Mean Corpuscular Hemoglobin 31.8 pg (25.0-34.0); Mean Corpuscular Hgb Conc 33.8 g/dL (32.0-36.0); Mean Corpuscular Volume 94.2 fL (80.0-100.0); Mean Platelet Volume 9.8 fL (9.4-12.4); Monocytes # (auto) 0.47 K/uL (0.11-0.59); Monocytes % (auto) 9.7 %; Neutrophils # (auto) 3.65 K/uL (1.40-6.50); Neutrophils % (auto) 74.9 %; Platelet Count 139 K/uL (130-400); RDW Coefficient of Variation 18.6 % (11.5-14.5); Red Blood Count 3.27 M/uL (4.70-6.10); White Blood Count 4.87 K/ul (4.8-10.8)
--- NOTE | 2022-07-25 08:13 | History & Physical Bridge Note ---
Date of Service July 25, 2022 History & Physical Bridge Note I have examined the patient, reviewed the History & Physical and in the interval since the performance of the History & Physical I have noted the following changes of clinical significance: no changes noted Proceed with EGD. risks/benefits and procedure discussed with patient, who agrees to proceed
[2022-07-25 08:28] LABS: BUN Creatinine Ratio 32.7 (10-20); Calcium 8.3 mg/dl (8.6-10.3); Est GFR (African American) 43.3 ml/min; Est GFR (Non-African American) 37.3 ml/min; Potassium 4.4 mmol/L (3.5-5.1)
[2022-07-25] MEDS ORDERED: LIDOCAINE 2% 2 ML VIAL/AMP(20MG/ML) INFIL ONE (08:55)
[2022-07-25] MEDS ORDERED: PROPOFOL IV EMULSION 10 MG/ML 20 ML VIAL IV ONE (08:55)
[2022-07-25 08:57] LABS: Vitamin D, 25 Hydrox 90.6 ng/ml (30-100)
--- NOTE | 2022-07-25 09:02 | GI REPORT ---
Patient Name: Davian Valentin Procedure Date: 07/25/2022 8:32 AM Date of : 1935 Admit Type: Inpatient Age: 86 Gender: Male Attending MD: Kaz Amezquita MD, Procedure: Upper GI endoscopy Providers: Kaz Amezquita MD Referring MD: Referred Self Indications: Hematemesis Medicines: Monitored Anesthesia Care Complications: No immediate complications. Estimated blood loss: None. Estimated Blood Loss: Estimated blood loss: none. Procedure: Pre-Anesthesia Assessment: - Prior Anticoagulants: The patient has taken Eliquis (apixaban), last dose was 3 days prior to procedure. - ASA Grade Assessment: II - A patient with mild systemic disease. After obtaining informed consent, the endoscope was passed under direct vision. Throughout the procedure, the patient's blood pressure, pulse, and oxygen saturations were monitored continuously. The Endoscope was introduced through the mouth, and advanced to the second part of duodenum. The upper GI endoscopy was accomplished without difficulty. The patient tolerated the procedure well. Findings: A medium-sized hiatal hernia was present. One non-bleeding linear gastric ulcer with no stigmata of bleeding was found at the incisura. Biopsies were taken with a cold forceps for Helicobacter pylori testing. Estimated blood loss: none. The duodenal bulb and second portion of the duodenum were normal. Impression: - Medium-sized hiatal hernia. - Non-bleeding gastric ulcer with no stigmata of bleeding. Biopsied. - Normal duodenal bulb and second portion of the duodenum. Recommendation: - [facility]. - Await pathology results. - Advance diet as tolerated today. -protonix 40 mg daily Kaz Amezquita MD 07/25/2022 9:01:49 AM This report has been signed electronically. Note Initiated On: 07/25/2022 8:32 AM Number of Addenda: 0 I attest to the content of the Intraoperative Record and orders documented therein, exceptions below {[id number]}
[2022-07-25] MEDS: PHENYTOIN SODIUM ER 100 MG CAP PO SCH ×3 (09:58→20:28)
[2022-07-25] MEDS: PANTOprazole 40 MG in SYRINGE 0 ML IV SCH (09:59)
[2022-07-25] MEDS: MIRTAZAPINE TAB 15 MG TAB PO SCH (10:25)
--- NOTE | 2022-07-25 10:42 | Anesthesiology Progress Note ---
Date of Service July 25, 2022 Anesthesia Post Procedure Vital Signs Vital Signs: Temp Pulse Pulse Resp BP BP BP 07/25/22 09:30 48 L 18 132/58 L 07/25/22 09:15 48 L 16 125/69 07/25/22 09:00 49 L 16 109/48 L 07/25/22 08:16 36.6 C 52 L 16 132/87 07/25/22 07:48 36.5 C 75 18 101/58 L 07/25/22 07:37 46 L 07/25/22 03:57 36.8 C 48 L 16 118/50 L 07/24/22 23:58 47 L 07/24/22 22:50 36.5 C 48 L 18 116/71 07/24/22 18:53 36.5 C 46 L 20 111/63 07/24/22 15:55 36.7 C 43 L 18 109/62 07/24/22 12:45 36.4 C L 48 L 16 116/52 L 07/24/22 12:02 36.4 C L 48 L 18 121/68 07/24/22 11:02 36.6 C 50 L 16 118/70 Pulse Ox O2 Del Method O2 Flow Rate 07/25/22 09:30 100 Nasal Cannula 2 07/25/22 09:15 100 Nasal Cannula 2 07/25/22 09:00 99 Oxymask 2 07/25/22 08:16 96 Nasal Cannula 2 07/25/22 07:48 99 Nasal Cannula 2 07/25/22 07:37 07/25/22 03:57 94 Nasal Cannula 2 07/24/22 23:58 07/24/22 22:50 95 Nasal Cannula 2 07/24/22 18:53 96 Nasal Cannula 07/24/22 15:55 100 Nasal Cannula 2 07/24/22 12:45 98 2 07/24/22 12:02 100 2 07/24/22 11:02 100 2 Transfer of Care Handoff Completed per policy Notes Mental Status: alert / awake / arousable and participated in evaluation Patient Amnestic to Procedure: Yes Nausea / Vomiting: adequately controlled Pain: adequately controlled Airway Patency, RR, SpO2: stable & adequate BP & HR: stable & adequate Hydration State: stable & adequate Anesthetic Complications: no major complications apparent
[2022-07-25] MEDS ORDERED: IPRATROPIUM BROMIDE NASAL SPRAY 0.06% 15ML NAE PRN (14:00)
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
[2022-07-25] MEDS: MULTIVITAMIN TAB PO SCH (20:28)
[2022-07-25] MEDS: MEMANTINE HCL 10 MG TAB PO SCH (20:28)
[2022-07-26] MEDS: LEVOTHYROXINE SODIUM 25 MCG TABLET PO SCH (06:15)
--- NOTE | 2022-07-26 08:13 | Hospitalist Progress Note ---
Date of Service July 26, 2022 Assessment & Plan (1) Upper GI bleed: Plan: Upper GI bleed with bright red blood emesis x2 on day of admission GI consulted and appreciate recommendations: Underwent EGD 07/25 and found to have 1 nonbleeding linear gastric ulcer, H. pylori biopsies collected Continue Protonix 40 mg p.o. daily, including on discharge (2) Acute blood loss anemia: Plan: Secondary to suspected upper GI bleed, care of this described above Hemoglobin 9.2->7.2, received 2u PRBCs, Hgb 12.1 today, continue to trend (3) Sick sinus syndrome: Plan: History of, most recent Holter monitor report in April 2022 Cardiology note showed avg HR 50 with range 37-96 Known history of regular junctional bradycardia with periods of AFib, pacemaker has been discussed with family in the past, patient has been Cardiology consulted and evaluated by Dr. Weeks, some question of risk versus benefit of anticoagulation for A-fib given fall history and GI bleed. No indication for pacemaker at this time given he is asymptomatic and given his age. (4) Afib: Plan: Patient with a history of AFib and sick sinus syndrome, typically on Eliquis for anticoagulation, not on any rate/rhythm agents No evidence of decompensation or rapid ventricular response Holding Eliquis in the setting of acute GI bleed, see above (5) CAD (coronary artery disease): Plan: History of CABG complicated by lower extremity embolization--post multiple toe amputations by Dr. Watkins Typically on aspirin, holding in the setting of GI bleed, follow-up outpatient (6) CKD (chronic kidney disease) stage 4, GFR 15-29 ml/min: Plan: Creatinine has been at baseline (7) Seizure disorder: Plan: History of, no recent seizure episodes, continue phenytoin (8) Dementia: Plan: Has a history of delirium with hospitalization in the past, will continue to monitor with delirium precautions, patient's mentation is at baseline at this time (9) Hypothyroidism: Plan: Continue levothyroxine (10) HFrEF (heart failure with reduced ejection fraction): Plan: Echocardiogram 04/2022 with LVEF of 40-45% Monitor daily intake/output and weights, no evidence of fluid overload Plan Did receive a dose of ceftriaxone in the ER after having blood cultures (due to elevated lactate and temp of 38.1C), however no clear source of infection and procalcitonin is not elevated, urinalysis/CT chest without evidence of pneumonia. Suspect elevated lactate from GI bleed, improved with small bolus IVF 500cc. Continue to monitor with daily CBC and if infection declares itself will continue antibiotics. PT and OT consulted, recommending rehab. Case management placed referral to [facility], medically stable for discharge when placement available Admission and Anticipated Discharge Date Admission Date: July 23, 2022 Subjective Patient with some brief confusion when waking from sleep, otherwise no acute events overnight. Continues to be in junctional rhythm overnight with HR 40-50s. No episodes of emesis. Review of Systems Review of Systems: All systems reviewed & are unremarkable except as noted in Subjective Physical Exam Constitutional: WD/WN, vitals as above Respiratory: normal respiratory effort, lungs clear to auscultation Cardiovascular: HR regular, bradycardic, no murmurs, no peripheral edema Gastrointestinal (Abdomen): normal bowel sounds, soft, nontender, no hepatosplenomegaly Skin: no rashes, warm and dry Psychiatric: Alert and oriented to self (this is baseline), euthymic affect Results & Data Results & Data Vital Signs (Past 12 Hours) Vital Signs Temp Pulse Pulse Resp BP Pulse Ox O2 Del Method 07/26/22 07:44 36.5 C 53 L 18 155/71 H 95 Room Air 07/26/22 04:30 36.7 C 53 L 16 128/62 93 Room Air 07/25/22 20:20 Room Air 07/25/22 22:30 47 L 07/25/22 23:41 36.7 C 72 18 116/49 L 94 Room Air PG Care Time/CCT Total # of Minutes Spent Total Time Spent with Patient: Total time spent is greater than 50% in coordination of care (as documented) at patient's floor/unit and/or counseling patient: Coding Level of Care Code 40548 SUB INP/OBS CARE 2/35MIN Diagnoses Upper GI bleed K92.2 Acute blood loss anemia D62 Sick sinus syndrome I49.5 Afib I48.91 CAD (coronary artery disease) I25.10 CKD (chronic kidney disease) stage 4, GFR 15-29 ml/min N18.4 Seizure disorder G40.909 Dementia F03.90 Hypothyroidism E03.9 HFrEF (heart failure with reduced ejection fraction) I50.20
[2022-07-26 08:14] LABS: Hematocrit (blood only) 37.5 % (42.0-52.0); Hemoglobin 12.1 g/dl (14.0-18.0); Mean Corpuscular Hemoglobin 31.4 pg (25.0-34.0); Mean Corpuscular Hgb Conc 32.3 g/dL (32.0-36.0); Mean Corpuscular Volume 97.4 fL (80.0-100.0); Mean Platelet Volume 9.8 fL (9.4-12.4); Platelet Count 157 K/uL (130-400); Red Blood Count 3.85 M/uL (4.70-6.10); White Blood Count 4.57 K/ul (4.8-10.8)
[2022-07-26 08:28] LABS: BUN Creatinine Ratio 30.2 (10-20); Calcium 8.7 mg/dl (8.6-10.3); Creatinine Clr Calc Pharmacy 27.9 ml/min; Est GFR (African American) 52.1 ml/min; Est GFR (Non-African American) 44.9 ml/min; Potassium 4.1 mmol/L (3.5-5.1)
[2022-07-26] MEDS: MEMANTINE HCL 10 MG TAB PO SCH ×2 (08:52→20:35)
[2022-07-26] MEDS: ROSUVASTATIN CALCIUM 5 MG TAB PO SCH (08:52)
[2022-07-26] MEDS: DONEPEZIL HCL 10 MG TAB PO SCH (08:52)
[2022-07-26] MEDS: PANTOprazole 40 MG TAB PO SCH (08:52)
[2022-07-26] MEDS: PHENYTOIN SODIUM ER 100 MG CAP PO SCH ×3 (08:52→20:35)
[2022-07-26] MEDS: MIRTAZAPINE TAB 15 MG TAB PO SCH (08:53)
[2022-07-26] MEDS: MULTIVITAMIN TAB PO SCH (20:36)
--- NOTE | 2022-07-26 22:19 | Electrocardiogram Report ---
Test Reason : Blood Pressure : / mmHG Vent. Rate : 043 BPM Atrial Rate : 025 BPM P-R Int : 000 ms QRS Dur : 130 ms QT Int : 552 ms P-R-T Axes : 000 074 206 degrees QTc Int : 464 ms Junctional bradycardia Nonspecific ST and T wave abnormality When compared with ECG of 24-JUL-2022 11:02, No significant change Confirmed by Guanako Sanchez ([id number]) on 07/26/2022 10:19:06 PM Referred By: REFERRED SELF Confirmed By:Guanako Sanchez
[2022-07-27] MEDS: LEVOTHYROXINE SODIUM 25 MCG TABLET PO SCH (06:08)
--- NOTE | 2022-07-27 08:44 | Hospitalist Progress Note ---
Date of Service July 27, 2022 Assessment & Plan (1) Upper GI bleed: Plan: Upper GI bleed with bright red blood emesis x2 on day of admission GI consulted and appreciate recommendations: Underwent EGD 07/25 and found to have 1 nonbleeding linear gastric ulcer, H. pylori biopsies collected Continue Protonix 40 mg p.o. daily, including on discharge, prescription sent (2) Acute blood loss anemia: Plan: Secondary to suspected upper GI bleed, care of this described above Received 2 units of packed red blood cells this admission, hemoglobin has been stable for the last several days with last check of 12.1 (3) Sick sinus syndrome: Plan: History of, most recent Holter monitor report in April 2022 Cardiology note showed avg HR 50 with range 37-96 Known history of regular junctional bradycardia with periods of AFib, pacemaker has been discussed with family in the past, patient has been Cardiology consulted and evaluated by Dr. Weeks, risk of anticoagulation for A- fib may be outweighing benefit given multiple fall history and GI bleed. No indication for pacemaker at this time given he is asymptomatic and given his age. Holding aspirin and apixaban at least until follow-up with cardiology outpatient (4) Afib: Plan: Patient with a history of AFib and sick sinus syndrome, typically on Eliquis for anticoagulation, not on any rate/rhythm agents No evidence of decompensation or rapid ventricular response Holding Eliquis in the setting of acute GI bleed, hold until seen by Cardiology, see above (5) CAD (coronary artery disease): Plan: History of CABG complicated by lower extremity embolization--post multiple toe amputations by Dr. Watkins Typically on aspirin, holding in the setting of GI bleed, follow-up outpatient (6) CKD (chronic kidney disease) stage 4, GFR 15-29 ml/min: Plan: Creatinine has been at baseline (7) Seizure disorder: Plan: History of, no recent seizure episodes, continue phenytoin (8) Dementia: Plan: Has a history of delirium with hospitalization in the past, will continue to monitor with delirium precautions, patient's mentation is at baseline at this time (9) Hypothyroidism: Plan: Continue levothyroxine (10) HFrEF (heart failure with reduced ejection fraction): Plan: Echocardiogram 04/2022 with LVEF of 40-45% Monitor daily intake/output and weights, no evidence of fluid overload Plan Did receive a dose of ceftriaxone in the ER after having blood cultures (due to elevated lactate and temp of 38.1C), however no clear source of infection and procalcitonin is not elevated, urinalysis/CT chest without evidence of pneumonia. Suspect elevated lactate from GI bleed, improved with small bolus IVF 500cc. Continue to monitor with daily CBC and if infection declares itself will continue antibiotics. PT and OT consulted, recommending rehab. Case management placed referral to [facility], medically stable for discharge when placement available Admission and Anticipated Discharge Date Admission Date: July 23, 2022 Subjective Patient without any acute events overnight. Denies any chest pain, shortness of breath, palpitations, abdominal pain, nausea, diarrhea. Having relatively good appetite over the last couple of days, which is a change from previous at home. Review of Systems Review of Systems: All systems reviewed & are unremarkable except as noted in Subjective Physical Exam Constitutional: WD/WN, vitals as above Respiratory: normal respiratory effort, lungs clear to auscultation Cardiovascular: HR regular, bradycardic, no murmurs, no peripheral edema Gastrointestinal (Abdomen): normal bowel sounds, soft, nontender, no hepatosplenomegaly Skin: no rashes, warm and dry Psychiatric: alert and oriented to self and place, euthymic affect Results & Data Results & Data Vital Signs (Past 12 Hours) Vital Signs Temp Pulse Pulse Resp BP Pulse Ox O2 Del Method 07/27/22 08:15 36.5 C 66 18 174/67 H 93 Room Air 07/27/22 03:05 36.7 C 56 L 18 134/67 93 Room Air 07/26/22 23:24 36.5 C 49 L 18 135/70 95 Room Air 07/26/22 22:17 46 L PG Care Time/CCT Total # of Minutes Spent Total Time Spent with Patient: Total time spent is greater than 50% in coordination of care (as documented) at patient's floor/unit and/or counseling patient: Coding Level of Care Code 64306 SUB INP/OBS CARE 1/25MIN Diagnoses Upper GI bleed K92.2 Acute blood loss anemia D62 Sick sinus syndrome I49.5 Afib I48.91 CAD (coronary artery disease) I25.10 CKD (chronic kidney disease) stage 4, GFR 15-29 ml/min N18.4 Seizure disorder G40.909 Dementia F03.90 Hypothyroidism E03.9 HFrEF (heart failure with reduced ejection fraction) I50.20
[2022-07-27] MEDS: MIRTAZAPINE TAB 15 MG TAB PO SCH (09:02)
[2022-07-27] MEDS: PANTOprazole 40 MG TAB PO SCH (09:02)
[2022-07-27] MEDS: PHENYTOIN SODIUM ER 100 MG CAP PO SCH ×3 (09:02→21:35)
[2022-07-27] MEDS: ROSUVASTATIN CALCIUM 5 MG TAB PO SCH (09:02)
[2022-07-27] MEDS: MEMANTINE HCL 10 MG TAB PO SCH ×2 (09:02→21:35)
[2022-07-27] MEDS: DONEPEZIL HCL 10 MG TAB PO SCH (09:02)
[2022-07-27] MEDS ORDERED: DOCUSATE SODIUM 100 MG CAP PO PRN (16:42)
[2022-07-27] MEDS: MULTIVITAMIN TAB PO SCH (21:36)
[2022-07-28] MEDS: LEVOTHYROXINE SODIUM 25 MCG TABLET PO SCH (05:40)
[2022-07-28] MEDS: MEMANTINE HCL 10 MG TAB PO SCH ×2 (09:38→19:17)
[2022-07-28] MEDS: DONEPEZIL HCL 10 MG TAB PO SCH (09:38)
[2022-07-28] MEDS: MIRTAZAPINE TAB 15 MG TAB PO SCH (09:39)
[2022-07-28] MEDS: PANTOprazole 40 MG TAB PO SCH (09:39)
[2022-07-28] MEDS: PHENYTOIN SODIUM ER 100 MG CAP PO SCH ×3 (09:39→19:17)
[2022-07-28] MEDS: ROSUVASTATIN CALCIUM 5 MG TAB PO SCH (09:40)
--- NOTE | 2022-07-28 15:18 | Hospitalist Progress Note ---
Date of Service July 28, 2022 Assessment & Plan (1) Upper GI bleed: Plan: Gastric ulcer noted on EGD completed July 25. Probable source of bleeding although no active bleeding seen at the time. Hemoglobin is stable at 12.1. Continue Protonix therapy. Aspirin and Eliquis remain on hold. (2) Acute blood loss anemia: Plan: Secondary to suspected upper GI bleed from gastric ulcer. Hemoglobin is now stable. Continue Protonix therapy (3) Sick sinus syndrome: Plan: Telemetry. Stable. Continue current medical management. Aspirin and Eliquis remain on hold however. Cardiology consultation and recommendations appreciated. Risk of anticoagulation for A-fib may be outweighing benefit given multiple fall history and GI bleed. No indication for pacemaker at this time given he is asymptomatic and given his age. (4) Afib: Plan: Patient with a history of AFib and sick sinus syndrome. Typically on Eliquis for anticoagulation, not on any rate/rhythm agents. Currently stable. Holding Eliquis in the setting of acute GI bleed (5) CAD (coronary artery disease): Plan: History of CABG complicated by lower extremity embolization--post multiple toe amputations by Dr. Watkins. Typically on aspirin, holding in the setting of GI bleed. Follow-up outpatient (6) CKD (chronic kidney disease) stage 4, GFR 15-29 ml/min: Plan: Stable. Monitor intake and output. Serial labs (7) Seizure disorder: Plan: Stable. Continue current medical management (8) Dementia: Plan: Supportive care. Stable. (9) Hypothyroidism: Plan: Stable. Continue levothyroxine (10) HFrEF (heart failure with reduced ejection fraction): Plan: Echocardiogram 04/2022 with LVEF of 40-45%. Stable. Monitor intake and output. Plan Awaiting discharge to [facility] when arrangements are finalized. Admission and Anticipated Discharge Date Admission Date: July 23, 2022 Subjective Stable. No acute problems. is at the bedside. Awaiting eventual discharge to [facility]. Hemoglobin is stable at 12.1. Creatinine down to 1.3. Aspirin and Eliquis remain on hold. Review of Systems Review of Systems: Constitutional-no fever or chills ENT-no blurred vision, no double vision, no epistaxis, no sore throat Respiratory-no cough, no wheezing, no shortness of breath Cardiac-no palpitations, no chest pain, no syncope GI-no nausea, vomiting, diarrhea, melena, hematochezia -no urinary retention, no urinary incontinence, no dysuria, no hematuria Musculoskeletal-no joint pain, no muscle tenderness Skin-no bruising, no rashes, no pruritus Neuro-no isolated weakness, no paresthesia, no weakness Psych-no depression, no anxiety Physical Exam Physical Exam: General-alert and oriented x3, no fevers, no chills HEENT-head atraumatic and normocephalic, pupils equal and reactive to light, extraocular muscles intact Neck-no lymphadenopathy or thyromegaly, trachea midline Chest-clear to auscultation percussion. No rales wheezing or rhonchi Cardiac-regular rate and rhythm, normal S1 and S2 Abdomen-normal bowel sounds, nontender, no hepatosplenomegaly Extremities-no cyanosis, clubbing, or edema Neuro-cranial nerves II through XII intact, motor and sensory function within normal limits, strength symmetrical , no focal deficits Psych-normal affect, normal mood Results & Data Results & Data Vital Signs (Past 12 Hours) Vital Signs Temp Pulse Pulse Resp BP Pulse Ox O2 Del Method 07/28/22 10:00 Room Air 07/28/22 07:54 36.0 C L 54 L 18 157/84 H 91 Room Air 07/28/22 06:00 77 Laboratory Results 07/26/22 08:00 07/26/22 07:49 PG Care Time/CCT Total # of Minutes Spent Total Time Spent with Patient: Total time spent is greater than 50% in coordination of care (as documented) at patient's floor/unit and/or counseling patient: Coding Level of Care Code 17057 SUB INP/OBS CARE 3/50MIN Diagnoses Upper GI bleed K92.2 Acute blood loss anemia D62 Sick sinus syndrome I49.5 Afib I48.91 CAD (coronary artery disease) I25.10 CKD (chronic kidney disease) stage 4, GFR 15-29 ml/min N18.4 Seizure disorder G40.909 Dementia F03.90 Hypothyroidism E03.9 HFrEF (heart failure with reduced ejection fraction) I50.20
[2022-07-28] MEDS: MULTIVITAMIN TAB PO SCH (19:17)
[2022-07-29 06:06] LABS: Basophils # (auto) 0.03 K/uL (0-0.2); Basophils % (auto) 0.6 %; Eosinophils # (auto) 0.36 K/uL (0-0.50); Eosinophils % (auto) 7.3 %; Hematocrit (blood only) 34.7 % (42.0-52.0); Hemoglobin 11.8 g/dl (14.0-18.0); Immature Granulocytes # (auto) 0.02 K/uL (0.01-0.20); Immature Granulocytes % (auto) 0.4 %; Lymphocytes # (auto) 0.67 K/uL (1.2-3.4); Lymphocytes % (auto) 13.6 %; Mean Corpuscular Hemoglobin 31.6 pg (25.0-34.0); Mean Platelet Volume 9.1 fL (9.4-12.4); Monocytes # (auto) 0.55 K/uL (0.11-0.59); Monocytes % (auto) 11.2 %; Neutrophils # (auto) 3.28 K/uL (1.40-6.50); Neutrophils % (auto) 66.9 %; Platelet Count 205 K/uL (130-400); RDW Coefficient of Variation 16.2 % (11.5-14.5); Red Blood Count 3.73 M/uL (4.70-6.10); White Blood Count 4.91 K/ul (4.8-10.8)
[2022-07-29] MEDS: LEVOTHYROXINE SODIUM 25 MCG TABLET PO SCH (06:06)
[2022-07-29 06:16] LABS: BUN Creatinine Ratio 18.9 (10-20); Calcium 8.1 mg/dl (8.6-10.3); Creatinine Clr Calc Pharmacy 25.9 ml/min; Est GFR (African American) 55.4 ml/min; Est GFR (Non-African American) 47.8 ml/min; Potassium 4.2 mmol/L (3.5-5.1)
[2022-07-29] MEDS: MEMANTINE HCL 10 MG TAB PO SCH ×2 (08:11→19:35)
[2022-07-29] MEDS: PHENYTOIN SODIUM ER 100 MG CAP PO SCH ×3 (08:11→19:35)
[2022-07-29] MEDS: MIRTAZAPINE TAB 15 MG TAB PO SCH (08:12)
[2022-07-29] MEDS: ROSUVASTATIN CALCIUM 5 MG TAB PO SCH (08:12)
[2022-07-29] MEDS: DONEPEZIL HCL 10 MG TAB PO SCH (08:12)
[2022-07-29] MEDS: PANTOprazole 40 MG TAB PO SCH (08:12)
--- NOTE | 2022-07-29 14:35 | Hospitalist Progress Note ---
Date of Service July 29, 2022 Assessment & Plan (1) Upper GI bleed: Plan: Gastric ulcer noted on EGD completed July 25. Probable source of bleeding although no active bleeding seen at the time. Hemoglobin is now stable. Continue Protonix therapy. Aspirin and Eliquis remain on hold. (2) Acute blood loss anemia: Plan: Secondary to suspected upper GI bleed from gastric ulcer. Hemoglobin is now stable. Continue Protonix therapy (3) Sick sinus syndrome: Plan: Telemetry. Stable. Continue current medical management. Aspirin and Eliquis remain on hold however. Cardiology consultation and recommendations appreciated. Risk of anticoagulation for A-fib may be outweighing benefit given multiple fall history and GI bleed. No indication for pacemaker at this time given he is asymptomatic and given his age. (4) Afib: Plan: Patient with a history of AFib and sick sinus syndrome. Typically on Eliquis for anticoagulation, not on any rate/rhythm agents. Currently stable. Holding Eliquis in the setting of acute GI bleed (5) CAD (coronary artery disease): Plan: History of CABG complicated by lower extremity embolization--post multiple toe amputations by Dr. Watkins. Typically on aspirin, holding in the setting of GI bleed. Follow-up outpatient (6) CKD (chronic kidney disease) stage 4, GFR 15-29 ml/min: Plan: Stable. Monitor intake and output. Serial labs (7) Seizure disorder: Plan: Stable. Continue current medical management (8) Dementia: Plan: Supportive care. Stable. (9) Hypothyroidism: Plan: Stable. Continue levothyroxine (10) HFrEF (heart failure with reduced ejection fraction): Plan: Echocardiogram 04/2022 with LVEF of 40-45%. Stable. Monitor intake and output. Plan Awaiting discharge to [facility] when arrangements are finalized. Hopefully tomorrowJuly 30 Admission and Anticipated Discharge Date Admission Date: July 23, 2022 Subjective Alert and oriented. No new problems. Hemoglobin stable. Aspirin and Eliquis remain on hold. Hopeful discharge to [facility] tomorrow, July 30 Review of Systems Review of Systems: Constitutional-no fever or chills ENT-no blurred vision, no double vision, no epistaxis, no sore throat Respiratory-no cough, no wheezing, no shortness of breath Cardiac-no palpitations, no chest pain, no syncope GI-no nausea, vomiting, diarrhea, melena, hematochezia -no urinary retention, no urinary incontinence, no dysuria, no hematuria Musculoskeletal-no joint pain, no muscle tenderness Skin-no bruising, no rashes, no pruritus Neuro-no isolated weakness, no paresthesia, no weakness Psych-no depression, no anxiety Physical Exam Physical Exam: General-alert and oriented x3, no fevers, no chills HEENT-head atraumatic and normocephalic, pupils equal and reactive to light, extraocular muscles intact Neck-no lymphadenopathy or thyromegaly, trachea midline Chest-clear to auscultation percussion. No rales wheezing or rhonchi Cardiac-regular rate and rhythm, normal S1 and S2 Abdomen-normal bowel sounds, nontender, no hepatosplenomegaly Extremities-no cyanosis, clubbing, or edema Neuro-cranial nerves II through XII intact, motor and sensory function within normal limits, strength symmetrical , no focal deficits Psych-normal affect, normal mood Results & Data Results & Data Vital Signs (Past 12 Hours) Vital Signs Temp Pulse Pulse Resp BP Pulse Ox O2 Del Method 07/29/22 11:39 36.7 C 77 16 113/72 97 Room Air 07/29/22 07:38 36.8 C 109 H 16 99/68 L 95 Room Air 07/29/22 07:17 75 07/29/22 02:43 36.6 C 73 16 112/67 94 Room Air Laboratory Results 07/29/22 05:35 07/29/22 05:35 PG Care Time/CCT Total # of Minutes Spent Total Time Spent with Patient: Total time spent is greater than 50% in coordination of care (as documented) at patient's floor/unit and/or counseling patient: Coding Level of Care Code 31452 SUB INP/OBS CARE 2/35MIN Diagnoses Upper GI bleed K92.2 Acute blood loss anemia D62 Sick sinus syndrome I49.5 Afib I48.91 CAD (coronary artery disease) I25.10 CKD (chronic kidney disease) stage 4, GFR 15-29 ml/min N18.4 Seizure disorder G40.909 Dementia F03.90 Hypothyroidism E03.9 HFrEF (heart failure with reduced ejection fraction) I50.20
[2022-07-29] MEDS: MULTIVITAMIN TAB PO SCH (20:00)
[2022-07-30] MEDS: LEVOTHYROXINE SODIUM 25 MCG TABLET PO SCH (04:52)
[2022-07-30 06:05] LABS: Basophils # (auto) 0.02 K/uL (0-0.2); Basophils % (auto) 0.4 %; Eosinophils # (auto) 0.41 K/uL (0-0.50); Eosinophils % (auto) 7.5 %; Hematocrit (blood only) 35.5 % (42.0-52.0); Hemoglobin 11.9 g/dl (14.0-18.0); Immature Granulocytes # (auto) 0.02 K/uL (0.01-0.20); Immature Granulocytes % (auto) 0.4 %; Lymphocytes # (auto) 0.71 K/uL (1.2-3.4); Lymphocytes % (auto) 12.9 %; Mean Corpuscular Hemoglobin 31.5 pg (25.0-34.0); Mean Corpuscular Hgb Conc 33.5 g/dL (32.0-36.0); Mean Corpuscular Volume 93.9 fL (80.0-100.0); Monocytes # (auto) 0.66 K/uL (0.11-0.59); Neutrophils # (auto) 3.68 K/uL (1.40-6.50); Neutrophils % (auto) 66.8 %; Platelet Count 229 K/uL (130-400); RDW Coefficient of Variation 16.2 % (11.5-14.5); RDW Standard Deviation 53.9 fL (36.4-46.3); Red Blood Count 3.78 M/uL (4.70-6.10)
[2022-07-30 06:20] LABS: BUN Creatinine Ratio 19.4 (10-20); Calcium 8.3 mg/dl (8.6-10.3); Creatinine Clr Calc Pharmacy 24.6 ml/min; Est GFR (African American) 52.1 ml/min; Est GFR (Non-African American) 44.9 ml/min; Potassium 4.4 mmol/L (3.5-5.1)
[2022-07-30] MEDS: PHENYTOIN SODIUM ER 100 MG CAP PO SCH (09:16)
[2022-07-30] MEDS: MIRTAZAPINE TAB 15 MG TAB PO SCH (09:17)
[2022-07-30] MEDS: DONEPEZIL HCL 10 MG TAB PO SCH (09:17)
[2022-07-30] MEDS: PANTOprazole 40 MG TAB PO SCH (09:17)
[2022-07-30] MEDS: MEMANTINE HCL 10 MG TAB PO SCH (09:17)
[2022-07-30] MEDS: ROSUVASTATIN CALCIUM 5 MG TAB PO SCH (09:17)
--- NOTE | 2022-07-30 10:46 | Discharge Summary ---
Date of Service July 30, 2022 Admission HPI Per Admitting Provider 86-year-old male past medical history significant for CKD stage IV, CAD, sick sinus syndrome, atrial fibrillation on Eliquis therapy, HFrEF with an EF of 40 to 45% who presented for a total of 2 episodes of hematemesis today of bright red blood with some associated dizziness and breathlessness. Was seen by primary care provider office who recommended coming to the ER. In the ER patient noted to be hemodynamically stable but did have a fever to 38.1, saturating normally on room air. Blood work notable for hemoglobin of 9.2 with last known hemoglobin 1315 in May. Creatinine stable at 1.51, lactate initially elevated above 2 but improved with small bolus IV fluid. CRP 6.09 with a procalcitonin of 0.32. Urinalysis without evidence of infection. COVID- negative. Due to a recent fall 2 days ago patient had head/chest/C- spine/abdomen and pelvis CT which showed some atelectasis and small bilateral pleural effusions, as well as an acute compression deformity of T8 superimposed upon old compression deformity with mild retropulsion. Patient at this time denies nausea, abdominal pain including on palpation. Principal Diagnosis Upper GI bleed, acute blood loss anemia, gastric ulcer as suspected source of bleeding Discharge Exam General-alert and oriented x3, no fevers, no chills HEENT-head atraumatic and normocephalic, pupils equal and reactive to light, extraocular muscles intact Neck-no lymphadenopathy or thyromegaly, trachea midline Chest-clear to auscultation percussion. No rales wheezing or rhonchi Cardiac-regular rate and rhythm, normal S1 and S2 Abdomen-normal bowel sounds, nontender, no hepatosplenomegaly Extremities-no cyanosis, clubbing, or edema Neuro-cranial nerves II through XII intact, motor and sensory function within normal limits, strength symmetrical , no focal deficits Psych-normal affect, normal mood Discharge Data Allergies Allergy/AdvReac Type Severity Reaction Status Date / Time atorvastatin Allergy Unknown Unknown Verified 07/25/22 08:35 heparin Allergy Unknown ? Heparin Verified 07/25/22 08:35 Induced Thrombocytopenia versus DIC Penicillins Allergy Unknown RASH AND Verified 07/25/22 08:35 ITCHING simvastatin Allergy Unknown Unknown Verified 07/25/22 08:35 ciprofloxacin [From Cipro] Allergy Unknown Verified 07/25/22 08:35 doxycycline Allergy UNLNOWN Verified 07/25/22 08:35 oxycodone Allergy Unknown Verified 07/25/22 08:35 [id number] Reductase AdvReac Unknown ?SEIZURES Verified 07/25/22 08:35 Inhibitor [[id number]-[id number]-Jeb Reductase Inhibitor] Consultations 07/23/22 17:41 ED Decision to Admit Stat 07/23/22 22:36 Consult Gastroenterology Routine 07/24/22 15:26 Consult Cardiology Routine Procedures Performed Operation Date: 07/25/22 17:00 Actual Procedures p EGD Biopsy Cytology - Kaz Amezquita MD Ordered Studies 07/23/22 13:25 CT abd pelvis IV con only Stat CT cervical spine wo con Stat CT chest diagnostic w con Stat CT head/brain wo con Stat Hospital Course (1) Upper GI bleed: Gastric ulcer noted on EGD completed July 25. Probable source of bleeding although no active bleeding seen at the time. Hemoglobin is now stable. Continue Protonix therapy. Aspirin and Eliquis were held. Low-dose aspirin restarted. Eliquis remains on hold. (2) Acute blood loss anemia: Secondary to suspected upper GI bleed from gastric ulcer. Hemoglobin is now stable. Continue Protonix therapy (3) Sick sinus syndrome: Telemetry. Stable. Continue current medical management. Aspirin and Eliquis remain on hold however. Cardiology consultation and recommendations appreciated. Risk of anticoagulation for A-fib may be outweighing benefit given multiple fall history and GI bleed. No indication for pacemaker at this time given he is asymptomatic and given his age. (4) Afib: Patient with a history of AFib and sick sinus syndrome. Typically on Eliquis for anticoagulation, not on any rate/rhythm agents. Currently stable. 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 Watkins. Follow-up outpatient (6) CKD (chronic kidney disease) stage 4, GFR 15-29 ml/min: Stable. Monitor intake and output. Serial labs (7) Seizure disorder: Stable. Continue current medical management (8) Dementia: Supportive care. Stable. (9) Hypothyroidism: Stable. Continue levothyroxine (10) HFrEF (heart failure with reduced ejection fraction): Echocardiogram 04/2022 with LVEF of 40-45%. Stable. Monitor intake and output. Plan Discharge to [facility], July 30 Total Time Total Time Spent Total Time Spent (In Minutes): 40 minutes Discharge Plan Discharge Items Patient Disposition: Transfer Intermediate Fac Reason For Visit: ACUTE GI BLEED Discharge Diagnosis: Upper GI bleed, acute blood loss anemia, gastric ulceration Condition on Discharge: Good Activity: Resume your previous activity Non-emergency contact: Primary Care Provider Call non-emergency contact if: you have any medication questions and your symptoms worsen Follow-up/Referrals: Miguel Mishra DO [Primary Care Provider] - Diet: Regular and Heart Healthy Addtl Attending Provider Instructions: Eliquis is temporarily discontinued Pending Studies at Discharge: No Stand-Alone Forms: My [facility] Skilled Items Patient informed of condition?: Yes DNR: Yes Discharge Level of Care: Skilled Communicable Disease: No Discharge Prognosis: Stable Lines: None Urinary Catheter: No Medications and DC Order Prescriptions: New pantoprazole 40 mg Tablet,Delayed Release (Dr/Ec) 40 mg PO QAM 30 Days Qty: 30 0RF pantoprazole 40 mg tablet,delayed release (DR/EC) 40 mg PO DAILY Qty: 30 0RF Continued aspirin [Ecotrin Low Strength] 81 mg tablet,delayed release (DR/EC) 81 mg PO QAM cholecalciferol (vitamin D3) 1,000 unit capsule 1,000 units PO QAM multivitamin tablet 1 tab PO HS docusate sodium 100 mg capsule 100 mg PO QAM Qty: 10 ipratropium bromide 21 mcg (0.03 %) spray,non-aerosol 2 spray intranasal TID Qty: 30 2RF Rx Instructions: administer into each nostril donepezil 10 mg tablet 20 mg PO DAILY Qty: 90 3RF mirtazapine [Remeron] 15 mg tablet 15 mg PO DAILY Qty: 30 2RF levothyroxine 25 mcg tablet 25 mcg PO DAILY Qty: 90 3RF acetaminophen [Tylenol Extra Strength] 500 mg Tablet 500 mg PO UD PRN (Reason: Pain) memantine 10 mg tablet 10 mg PO BID phenytoin sodium extended 100 mg capsule 100 mg PO TID rosuvastatin 5 mg tablet 5 mg PO QAM Discontinued Eliquis 2.5 mg tablet 2.5 mg PO BID Discharge Orders: Discharge Order (Routine); Ordered 07/30/22 Ordered By: Juan Pablo Garzon Admission Data Admit Date/Time: 07/23/22 19:47 Attending Provider: Juan Pablo Garzon Admit Provider: Esther Driver Primary Care Provider: Miguel Mishra Other Providers: Bhavna Elizabeth at [place] ; Esther Driver ; Sridevi Domingo Jr ; Guanako Sanchez ; Far[place],[facility], [place] Other Interventions: Discharge Summary Assessment (RN) Last Done: 07/25/22 09:20 Coding Level of Care Code 15318 INP/OBS DISCH >30 MIN Diagnoses Upper GI bleed K92.2 Acute blood loss anemia D62 Sick sinus syndrome I49.5 Afib I48.91 CAD (coronary artery disease) I25.10 CKD (chronic kidney disease) stage 4, GFR 15-29 ml/min N18.4 Seizure disorder G40.909 Dementia F03.90 Hypothyroidism E03.9 HFrEF (heart failure with reduced ejection fraction) I50.20
== END 2022-07-30 13:20 | DRG 377 ==
LOC: ED 12:27 → SUATTDRO 19:47 → 2S 19:47 → 2W 07-27 16:02